=== PATIENT | male | born 1955 | race Caucasian/White ===

== ENCOUNTER 2018-07-22 10:35 | Day surgery (SDC) | payer BC, SELFPAY ==
[2018-07-22] VITALS (7 sets, daily range): BP systolic 114–142; BP diastolic 77–89; PULSE 77–95; RESP 12–16; TEMP 36.1–36.7; O2SAT 95–98; BMI 23.8
[2018-07-22] MEDS: Cefazolin 2 GM in 0.9% Normal Saline 100 ML IV (13:25)
[2018-07-22] MEDS: Bupivacaine Mpf 0.5% 30 ML VIAL (13:42)
--- NOTE | 2018-07-22 14:00 | DCINST_ITS ---
Discharge Diet: No Restrictions - Pain medication may cause nausea. You should typically eat light foods as you take your pain medication. Discharge Activity: May Shower - with the bandage in place 1-2 days after surgery. DO NOT SHOWER WHEN YOUR PORT IS ACCESSED. Additional Activity Instructions:: May not drive, work with heavy equipment, or sign legal documents for [address] if you are no longer taking narcotic pain medications. You may drive when you are no longer taking pain medications. Additional Dressing/Incision Instructions:: Leave the bandage on for 2-3 days. When you remove the bandage, leave the steri-strips intact until they fall off. Allergies/Adverse Reactions: Allergies No Known Allergies Allergy (Verified 07/22/18 10:52) Medications to take at Discharge Loperamide [Imodium] 2 mg PO Q2H PRN PRN #60 cap 07/22/18 Oxycodone HCl/Acetaminophen [Percocet 5/325] 1 - 2 tab PO Q4H PRN PRN 5 Days #30 tab 07/22/18 The following prescriptions were given: Oxycodone HCl/Acetaminophen [Percocet 5/325] 1 - 2 tab PO Q4H PRN PRN 5 Days #30 tab PRN Reason: Pain Primary Care Physician: Elizabeth Bonilla PA [Primary Care Provider] - Test Results: Test results from this visit will be discussed in further detail at your follow- up appointment, if applicable. Please Follow Up With: Vernon Burnett MD - [phone] When: Please plan to follow up in 7 days in the office.
--- NOTE | 2018-07-22 14:02 | RAD_ITS ---
STUDY: X-RAY CHEST REASON FOR EXAM: Male, 62 years old. Port placement. TECHNIQUE: Single AP portable view of the chest. COMPARISON: None. FINDINGS: A right-sided portacatheter has been placed. The tip is in the proximal portion of the superior vena cava. EKG electrodes are seen. Hyperinflation. Scattered calcified granulomas. There is no demonstrated pleural abnormality. Normal size heart. Normal mediastinum and renan. Normal visualized pulmonary arteries. Normal visualized aortic arch and descending thoracic aorta. Normal visualized thoracic spine. Normal visualized ribs, clavicles, and shoulders. There is no demonstrated abnormality of the visualized soft tissue structures of the upper abdomen. RAD/Chest 1 View (Portable) IMPRESSION: Status post right portacatheter placement. The catheter is in the proximal portion of the superior vena cava. Electronically Signed: Phillip Horton MD at 14:43 EDT Tel [phone], Service support ,
--- NOTE | 2018-07-25 10:23 | PCM.OPRPT ---
Problem List (1) Admission for fitting of Port-A-Cath Status: Acute Report of Operation Date of Procedure: 07/22/18 Pre-Operative Diagnosis: z45.2 vascular port fitting and adjustment Post-Operative Diagnosis: Same Surgery/Procedure Performed:: Placement of a right IJ PowerPort with the aid of ultrasound and fluoroscopy Type of Anesthesia:: MAC Anesthesiologist: Amandeep Sun Description of Procedure: Patient was brought in the operating room. Placed in the supine position. Under excellent MAC anesthetic patient was placed in the headdown and his neck was rotated to the left. I ultrasound the neck and identify the internal jugular vein. I marked the neck and chest appropriately and then sterilely prepped and draped these areas in the normal fashion. Local was injected into the neck. Seldinger's technique was used to gain access to the internal jugular vein. Guidewire was placed over the needle the needle was removed and fluoroscopy was used to confirm proper placement of the guidewire. The bed was then placed in the supine position. I injected local in the chest. I created a pocket with the use of electrocautery. I then went into the neck and made a skin ann marie on the guidewire. This was dilated with a hemostat. Dilator and sheath were placed over the guidewire the dilator and guidewire removed. Single lumen catheter was placed over the sheath. The sheath was removed. Fluoroscopy was used to confirm proper length. I tunneled from the chest over the collarbone and into the neck and brought the catheter down. I cut the catheter appropriately. I placed a locking hub on the catheter, the port onto the catheter and then secured the 2 with a locking hub. The catheter and port combination flushed and irrigated well. It was flushed with 3 cc of hep flush. It was sutured into the pocket created with a 0 Prolene suture x2. Skin incisions were closed with deep dermal stitches of 3-0 Vicryl. Dermabond was applied. Sterile dressings were applied. Patient tolerated the procedure well. Postoperative chest x-ray was ordered showing the catheter to be in good position. - Admit VTE Documentation VTE Present on Admission: No VTE Mechan Device Prophylaxis: SCD's VTE Pharm Prophylaxis ordered?: No Reason prophylaxis not ordered:: Treatment Not Indicated
== END 2018-07-22 15:03 | disposition home or self-care (01) ==
LOC: SDC 10:35 → AC 10:37
PROVIDERS: Family Provider Physician Assistant Medical; PCP Physician Assistant Medical; Referring Provider Surgery; Visit Provider Surgery
PROC: (CPT 36561; principal; 2018-07-22 12:45)
DX: Z45.2 Encounter for adjustment and management of vascular access device (principal); Z85.038 Personal history of other malignant neoplasm of large intestine; Z87.891 Personal history of nicotine dependence; I25.10 Atherosclerotic heart disease of native coronary artery without angina pectoris; I10 Essential (primary) hypertension
CPT/HCPCS: 36561; 71045; 76937; 77001; J7120; C1788; J2405

== ENCOUNTER → 2018-08-08 10:37 | Outpatient (CLI) | payer BC, SELFPAY ==
--- NOTE | 2018-08-08 10:40 | RAD_ITS ---
STUDY: X-RAY - PELVIS AND RIGHT HIP REASON FOR EXAM: Male, 62 years old. Injury, right hip pain. TECHNIQUE: Radiological exam, hip, unilateral, with pelvis when performed; minimum of 4 views COMPARISON: None. FINDINGS: There is a non-specific bowel gas pattern. Calcified phlebolith incidentally noted at the left extensive scrotum. There are degenerative changes of the lower lumbar spine. Normal bilateral iliac wings, sacroiliac joints and visualized sacrum. Normal bilateral superior and inferior pubic rami. Normal pubic symphysis. Normal bilateral ischial tuberosities. Normal visualized femoral head. There is borderline osteoarthritic spur formation of the acetabular rim. Normal hip joint. There is no demonstrated osseous destructive lesion or acute fracture. RAD/HIP, UNI W/ Pelvis 2-3 Views IMPRESSION: No acute fracture of the pelvis or right hip. Electronically Signed: Juaquin Key MD at 19:12 EDT , Service support ,
== END ==
PROVIDERS: Family Provider Physician Assistant Medical; PCP Physician Assistant Medical; Referring Provider Internal Medicine Medical Oncology; Visit Provider Internal Medicine Medical Oncology
DX: M25.551 Pain in right hip (principal); C18.9 Malignant neoplasm of colon, unspecified
CPT/HCPCS: 73502

== ENCOUNTER → 2018-08-09 07:35 | Outpatient (CLI) | payer BC, SELFPAY ==
--- NOTE | 2018-08-09 07:45 | MRI_ITS ---
STUDY: MR PELVIS WITH T WITHOUT CONTRAST REASON FOR EXAM: Male, 62 years old. Right hip pain. History of colon cancer diagnosed June 2018. TECHNIQUE: Standardized fat and water weighted pulse sequences were obtained in all 3 orthogonal planes, pre-and post contrast administration. 7 ml of Gadavist contrast material was administered intravenously for the contrast portion of the examination. COMPARISON: X-ray hip/pelvis 08/08/2018. FINDINGS: There is multilevel lumbar spondylosis with slight scoliosis. L2-L3 moderate disc narrowing, annular disc bulge with broad-based posterior disc bulge, mild facet arthropathy, mild foraminal stenosis. L3-L4 moderately severe disc narrowing, annular disc bulge with broad-based posterior disc bulge and facet hypertrophy contributing to mild foraminal narrowing. L4-L5 moderately severe disc narrowing, annular disc bulge, broad-based posterior disc bulge and facet hypertrophy contributing to mild spinal canal narrowing, encroachment upon each of the lateral recesses, moderate left and mild right foraminal stenosis. L5-S1 moderately severe disc narrowing, annular disc bulge with broad-based posterior disc bulge, facet hypertrophy contributing to encroachment upon each of the lateral recesses, moderate bilateral foraminal stenosis. No suspicious bone lesions are identified of the lumbar spine or pelvis. Body wall soft tissues exhibit no acute process. A few small lymph nodes are present in the inguinal chains bilaterally, not pathologically enlarged. Pelvic myotendinous structures appear normal. Intrapelvic: Nodular focus within the mid sigmoid colon. This appears to be enhancing. Correlate with the patient's recent diagnosis of colon cancer. Small bowel to the aomjp-sp-lduv unremarkable. No visible lymphadenopathy. Right hip: No effusion. Mild irregularity of the labral chondral junction at the superior anterior aspect of the articulation. Suspicious for labral tear. Mild joint space narrowing. No significant joint margin osteophytic lipping. Surrounding myotendinous structures are normal. Left hip: No effusion. Minimal joint space narrowing. The cartilage appears intact and with normal signal. There are no apparent abnormalities of the liver chondral junction. No significant joint margin osteophytic lipping. There are no apparent degenerative changes of the femoral head or acetabular articular surface. Surrounding myotendinous structures are normal. MRI/Pelvis W/WO Contrast IMPRESSION: There is very slightly greater narrowing of the articular interval on the right as compared to the left, suggesting a slightly greater degree of chondral degeneration. Suspected right hip labral tear, anterior superior aspect of the acetabular margin. De Dios image saved to the PACS archive. There are no significant degenerative features of the left hip. Multilevel lumbar spondylosis with evidence of foraminal stenosis at multiple levels most prominently on the right at L4-L5 and L5-S1. It is unclear if the small nodular focus within the sigmoid colon represents stool or neoplasm. Most likely stool. Correlate with recent colon cancer diagnosis. Electronically Signed: Flash Lawrence, at 10:32 EDT Tel , Service support ,
== END ==
PROVIDERS: Family Provider Physician Assistant Medical; PCP Physician Assistant Medical; Referring Provider Internal Medicine Medical Oncology; Visit Provider Internal Medicine Medical Oncology
DX: M25.551 Pain in right hip (principal); C18.9 Malignant neoplasm of colon, unspecified
CPT/HCPCS: 72197; A9585; A4216

== ENCOUNTER → 2018-09-01 15:17 | Outpatient (CLI) | payer BC, SELFPAY ==
--- NOTE | 2018-09-01 15:18 | RAD_ITS ---
STUDY: X-RAY - LUMBOSACRAL SPINE REASON FOR EXAM: Male, 62 years old. Low back pain. TECHNIQUE: 6 view(s) of the lumbosacral spine including lateral flexion and extension were obtained. COMPARISON: None FINDINGS: Normal lumbar lordosis. There is no substantial scoliosis. There is normal alignment of the vertebrae. There is limited flexion and extension with no abnormal motion. Normal vertebral bodies and endplates. There is diffuse intervertebral disc space narrowing with osteophyte formation and subchondral sclerosis most marked at L3-4, L4-5 and L5-S1. There is diffuse facet sclerosis. There is degenerative arthrosis of the sacroiliac joint with articular joint space narrowing and spur formation. Normal visualized soft tissue structures. RAD/L/S Spine Comp/w Bending Views IMPRESSION: Diffuse lumbar spondylosis. Limited flexion and extension with no abnormal motion. Electronically Signed: Perez Clarke MD at 17:36 EST , Service support ,
== END ==
PROVIDERS: Family Provider Physician Assistant Medical; PCP Physician Assistant Medical; Referring Provider Orthopaedic Surgery; Visit Provider Orthopaedic Surgery
DX: M54.16 Radiculopathy, lumbar region (principal); M51.36 Other intervertebral disc degeneration, lumbar region
CPT/HCPCS: 72114

== ENCOUNTER → 2018-09-09 12:01 | Outpatient (CLI) | payer BC, SELFPAY ==
--- NOTE | 2018-09-09 12:03 | MRI_ITS ---
STUDY: MRI LUMBAR SPINE WITHOUT CONTRAST REASON FOR EXAM: Male, 63 years old. Low back pain. Right hip pain. TECHNIQUE: Standardized fat and water weighted pulse sequences were obtained in the sagittal and axial planes. COMPARISON: None FINDINGS: There is normal alignment and curvature of the lumbosacral spine with no acute fractures or dislocations and no abnormal marrow infiltrative processes. There is narrowing of the disc spaces at L2-3 through L5-S1 with prominent marginal osteophytes from the vertebral body endplates at these levels. The conus medullaris terminates at T12-L1. T12-L1: There is a 1.3 x 0.3 cm right paracentral disc extrusion with a 1.8 cm craniad extension. The intervertebral foramina are patent.. L1-2: A 1.1 x 0.4 cm right paracentral disc protrusion. There is a slight deformity on the thecal sac. The facet joints and posterior elements are normal. L2-3: Disc space narrowing with marginal osteophytes. No focal disc protrusions or extrusion. No central canal stenosis. The facet joints are normal. L3-4: Disc space narrowing with marginal osteophytes and a 1.5 x 0.5 cm right extraforaminal disc osteophyte complex impinging on the exiting right L3 nerve root. L4-5: Disc space narrowing with marginal osteophytes. Moderate degenerative changes of the facet joints.. L5-S1: Disc space narrowing with marginal osteophytes. Mild degenerative changes of the facet joints. The aorta and visualized portions of kidneys are normal. MRI/Spine Lumbar (Routine) IMPRESSION: Intervertebral osteochondrosis at L2-3 L3-4 L4-5 and L5-S1. A 1.3 x 0.3 cm right paracentral disc extrusion at the T12-L1 level with 1.8 cm craniad extension. A 1.1 x 0.4 cm right paracentral disc protrusion at the L1-L2 level A 1.5 x 0.5 cm right extraforaminal disc osteophyte complex impinging on the exiting right L3 nerve root. Electronically Signed: Constantino Saldaña MD at 3:36 EST Tel , Service support ,
== END ==
PROVIDERS: Family Provider Physician Assistant Medical; PCP Physician Assistant Medical; Referring Provider Orthopaedic Surgery; Visit Provider Orthopaedic Surgery
DX: M51.36 Other intervertebral disc degeneration, lumbar region (principal); M54.16 Radiculopathy, lumbar region
CPT/HCPCS: 72148

== ENCOUNTER → 2019-04-10 | Outpatient (CLI) | payer BC, SELFPAY ==
[2019-01-16 08:59] VITALS: BMI 24.1
[2019-02-13 11:18] VITALS: BMI 23.8
--- NOTE | 2019-04-10 07:52 | CT_ITS ---
STUDY: CT ABDOMEN AND PELVIS WITH CONTRAST REASON FOR EXAM: Male, 63 years old. History of colon cancer and partial colectomy. Follow-up examination. RADIATION DOSAGE (If Supplied By Facility): CTDIvol = ( 9.96 ) mGy, DLP = ( 455.03 ) mGycm TECHNIQUE: Transaxial images were obtained from the dome of the diaphragm to the symphysis pubis without oral contrast. 100 IV/Oral Isovue 300 was administered. Sagittal and coronal images were reconstructed. Individualized dose optimization techniques were used for this CT. COMPARISON: None. FINDINGS: The visualized lung bases are unremarkable. The visualized portions of the heart are within normal limits. Normal liver. There are multiple gallstones. Normal spleen. Normal pancreas. Normal bilateral adrenal glands. Normal right kidney. Normal left kidney. Normal visualized stomach. Normal small intestine. Normal colon. The appendix is visualized and appears normal. There is scattered atherosclerotic calcification of the abdominal aorta, without a demonstrated aneurysm. Normal inferior vena cava. Normal retroperitoneum. Normal urinary bladder. Normal abdominal wall. There are diffuse degenerative changes of the visualized lumbar spine. Straightening of the normal lumbar lordosis. CT/Abdomen/Pelvis WITH Contrast IMPRESSION: Scattered sigmoid diverticula. Electronically Signed: Phillip Horton, at 15:02 EDT , Service support ,
[2019-04-10 08:06] LABS: CREATININE FINGERSTICK 1.2 mg/dL (0.70-1.30)
== END | disposition home or self-care (01) ==
LOC: CT 07:51
PROVIDERS: Family Provider Physician Assistant Medical; PCP Physician Assistant Medical; Referring Provider Internal Medicine Medical Oncology; Visit Provider Internal Medicine Medical Oncology
DX: Z85.038 Personal history of other malignant neoplasm of large intestine (principal); Z90.49 Acquired absence of other specified parts of digestive tract
CPT/HCPCS: 74177; Q9967; A4216

== ENCOUNTER 2019-06-14 08:12 | Day surgery (SDC) | payer BC, SELFPAY ==
[2019-05-22 07:46] VITALS: BMI 24.7
--- NOTE | 2019-05-22 11:43 | HP_ITS ---
Intake Vital Signs 05/22/19 Body Mass Index (BMI) 24.7 05/22/19 Height 5 ft 7 in 05/22/19 Weight: 152 lb 05/22/19 Body Mass Index (BMI) 23.8 05/22/19 Blood Pressure 124/75 H 05/22/19 Blood Pressure Location Rt brachial 05/22/19 Blood Pressure Position Sitting 05/22/19 Respiratory Rate 18 05/22/19 Pulse Rate 69 05/22/19 Pulse Source Monitor 05/22/19 Temperature 97.6 F L 05/22/19 Temperature Source Oral 05/22/19 Pulse Ox 97 05/22/19 Oxygen Delivery Method room air Intake Visit Reasons: C-Scope Consult Chief Complaint: port removal Home Manager Required: No Is patient in pain?: No Allergies No Known Allergies Allergy (Verified 05/22/19 07:46) Medications Loperamide [Imodium] 2 mg PO Q2H PRN PRN #60 cap 07/22/18 [Rx Confirmed 05/22/19] Adults Multivitamin Tablet 1 tab PO DAILY 07/26/18 [History Confirmed 05/22/19] PFSH Medical History Colon cancer (Acute) Mass of right forearm (Acute) Surgical History H/O hernia repair (Acute) History of colon resection (Acute) History of tonsillectomy (Acute) Family History Mother Diabetes Uncle Aneurysm Heart disease Father Hypertension Myocardial infarction Heart disease Social History (Updated 05/22/19 @ 11:43 by Vernon Burnett MD) Smoking Status: Former smoker second hand exposure: No alcohol intake: never substance use type: does not use caffeine: Yes what type of physical activity do you participate in: walking frequency: daily seatbelt use: always HPI HPI HPI: YUDELKA MOBLEY, is a 63 M who presents to the office today for HPI HPI Surgical H&P: Yes HPI: YUDELKA MOBLEY, is a 63 M who presents to the office today for evaluation for colonoscopy. Patient status post a left-sided colectomy secondary to an obstructing colon cancer back in May 2018. This was done at the [facility] [place] in [facility]. 2 out of 24 lymph nodes were positive. I have placed the port on him and he underwent chemotherapy. Recently he had a CAT scan of his abdomen and pelvis which showed scattered sigmoid diverticuli. ROS General General: Yes colon cancer; no weight change, appetite, fatigue, breast cancer or weakness HEENT HEENT: No difficulty swallowing, eye injury, eye surgery, swollen glands or hoarseness Endo Endocrine: No thyroid disease, diabetes mellitus, thyroid cancer, Hair loss, heat intolerance or cold intolerance Skin Skin: No rash or changing moles Breast Breast: No left breast lump, right breast lump, nipple discharge, breast pain, abnormal mammogram, abnormal US or breast enlargement Musc Musculoskeletal: Yes back problems and arthritis; no rheumatoid arthritis, gout or joint pain Cardio Cardiovascular: Yes high blood pressure; no murmur, pacemaker, heart disease, atrial fibrillation, heart attack, heart stent, palpitations, shortness of breat with exertion or chest pain Psych Psychiatric: No depression, anxiety or hearing voices Resp Respiratory: No shortness of breath, No sleep apnea, No cough, No COPD, No asthma, No emphysema, No wheezing Gastro Gastrointestinal: No abdominal pain, No nausea or vomiting, No diarrhea, No constipation, No blood in stool, No acid reflux, No hemorrhoids, No ulcers, No gallbladder problem, No black,tarry stools Andrew Hematologic: No blood thinners, No blood disorders, No bleeding, No anemia, No blood clots Neuro Neurologic: No system reviewed and no additional complaints, except as docu, No as per HPI, No abnormal walking, No abnormal hearing, No abnormal movements, No abnormal speech, No behavioral changes, No burning sensations, No confusion, No seizure-like activity, No unsteadiness, No dizziness, No localized weakness, No frequent falls, No headache(s), No lack of coordination, No loss of vision, No memory loss, Yes numbness, No other visual disturbances, No radiating pain, No restless legs, No sensory deficit, No fainting, Yes tingling, No tremor(s), No weakness, No other Exam Const General: no acute distress, well developed, well hydrated Orientation: oriented to person, oriented to place, oriented to time [facility] Head: normocephalic, atraumatic Ears: external ears normal Mouth: moist mucous membranes Eyes Sclera: sclerae normal Pupils: normal by confrontation Neck Neck: no lymphadenopathy noted Neck mass: No Thyroid: thyroid normal, symmetrical Chest Chest palpation & inspection: normal inspection of the chest Breast Palpation: No nipple discharge Resp Effort & Inspection: normal respiratory effort Auscultation: clear to auscultation bilaterally Percussion: percussion normal Cardio Rate: regular rate Rhythm: regular rhythm Heart Sounds: no murmurs GI Palpation: soft, no hepatosplenomegaly, no masses, nontender Rectal Exam: other Other: Rectal exam deferred. Extrem General: normal to inspection, no clubbing, cyanosis or edema Assessment & Plan Problems 1. Colon adenocarcinoma C18.9 Plan I have discussed the above with the patient. I have offered the patient colonoscopy for evaluation. I have explained the risks/benefits of the procedure and described the procedure. I have discussed the risks with the patient, including but not limited to: infection, bleeding, perforation of the GI tract requiring emergency surgery, inability to complete the procedure, injury to any internal organs, complications of anesthesia, etc. - the patient understands and agrees to proceed. I have answered all the patient's questions to the patient's satisfaction and the patient has no further questions. The patient has been given instructions for the colon cleansing preparation. Coding Level of Care Code Off vis,est,level 3 Diagnoses Colon adenocarcinoma C18.9 05/22/19 1143 <Electronically signed by Vernon patterson MD> Date _ Vernon Burnett MD I have re-examined the patient. There are no clinical changes since date of exam.
--- NOTE | 2019-06-14 | COLBX_PTH ---
PATIENT: YUDELKA MOBLEY LOC: EN U#:[id number] AGE/SX: 63/M ROOM: RE06/14/[address]: Dr. Vernon Burnett MD : [id number] BED: DIS: 06/14/2019 SPEC #: [id number] RECD: 06/14/19 13:35 STATUS: YESENIA ADRIENNE #: [id number] TIO: 06/14/19 00:[address]: Vernon Burnett DEPT: SURGICAL PATHOLOGY RECD BY: Everette Smith ENTERED: 06/14/19 13:35 SP TYPE: COLON BX OTHR DR: MOISÉS Crowder Tissues: Transverse colon Procedures: Surgery Specimen Level IV HEADER OPERATION: Colonoscopy (MAC) PRE-OP DIAGNOSIS: History colon cancer, colectomy TISSUE SUBMITTED: Transverse colon polyp MICROSCOPIC DIAGNOSIS Transverse colon polyp, biopsy: Tubular adenoma. SJ:brant 06/15/19 MICROSCOPIC DESCRIPTION Slides are reviewed. GROSS DESCRIPTION Received in fixative is one container labeled with the patient's name and designated transverse colon polyp. The specimen consists of a piece of bernal-pink polyp measuring 0.7 x 0.5 x 0.3 cm. The specimen is totally submitted in one cassette. / SJ:brant 06/14/19 TC:1 CPT: 38397
[2019-06-14 08:24] VITALS: BP 125/78; PULSE 68; RESP 16; TEMP 36.7; O2SAT 97; BMI 23.8
[2019-06-14] MEDS: Lactated Ringers 1,000 ML 75 ML IV (08:40)
[2019-06-14 09:58] VITALS: BP 125/78; BP 87/51; PULSE 74; RESP 16; TEMP 36.1; O2SAT 94
[2019-06-14 10:05] VITALS: BP 119/76; BP 125/78; PULSE 72; RESP 17; O2SAT 96
[2019-06-14 10:10] VITALS: BP 119/76; BP 125/78; PULSE 68; RESP 16; O2SAT 93
[2019-06-14 10:15] VITALS: BP 121/73; BP 125/78; PULSE 62; RESP 16; TEMP 36.3; O2SAT 98
[2019-06-14 10:40] VITALS: BP 125/78
--- NOTE | 2019-06-14 16:49 | OP.ENDO_ITS ---
06/15/2019 Carlito Crowder Re : Colonoscopy procedure for Danny John Irene This procedure was performed on Friday, June 14, 2019. My impressions and recommendations are as follows: Impressions : - One 2 mm polyp in the transverse colon, removed with a hot snare. Resected and retrieved. - Patent end-to-end colo-colonic anastomosis, characterized by healthy appearing mucosa. - Non-bleeding internal hemorrhoids. - The examination was otherwise normal. Recommendations : - Discharge patient to home. - Resume previous diet. - Continue present medications. - Await pathology results. - Repeat colonoscopy in 1 year for surveillance. - Return to my office in 1 week. My findings are described in the full procedure note, which is enclosed. If I can be of further assistance, please feel free to contact me at Doctor phone number(s): , Fax: [phone], Work: . Sincerely, MD Vernon Reynaga MD 06/14/2019 10:05:23 AM This report has been signed electronically.
== END 2019-06-14 10:47 | disposition home or self-care (01) ==
LOC: EN 08:13 → AC 08:14
PROVIDERS: Family Provider Physician Assistant Medical; PCP Physician Assistant Medical; Referring Provider Physician Assistant Medical; Visit Provider Surgery
PROC: 0DJD8ZZ Inspection of Lower Intestinal Tract, Via Natural or Artificial Opening Endoscopic (ICD-10-PCS; CPT 45378; principal; 2019-06-14 09:10)
DX: D12.3 Benign neoplasm of transverse colon (principal); K64.8 Other hemorrhoids; Z90.49 Acquired absence of other specified parts of digestive tract; Z87.891 Personal history of nicotine dependence
CPT/HCPCS: 45380; 88305; J7120; A4216

== ENCOUNTER → 2019-10-09 07:07 | Outpatient (CLI) | payer BC, SELFPAY ==
[2019-04-13 08:39] VITALS: BMI 24.7
[2019-06-14 12:48] VITALS: BMI 23.8
--- NOTE | 2019-10-09 07:10 | RAD_ITS ---
STUDY: X-RAY CHEST REASON FOR EXAM: Male, 64 years old. Colon cancer last year TECHNIQUE: PA and lateral views of the chest. COMPARISON: Prior study of 07/22/2018 FINDINGS: There is a right-sided MediPort with tip projecting over the distal SVC. The lungs are clear and expanded. There is hemidiaphragmatic flattening which may be associated with COPD. Normal size heart. Normal mediastinum and renan. Normal visualized pulmonary arteries. There are calcified plaques of the aortic arch. Normal visualized thoracic spine. Normal visualized ribs, clavicles, and shoulders. There is no demonstrated abnormality of the visualized soft tissue structures of the upper abdomen. RAD/Chest PA and Lateral IMPRESSION: Right-sided MediPort with tip projecting over the distal SVC. Calcified plaques of the aortic arch. Hemidiaphragmatic flattening which may be associated with COPD. No acute cardiopulmonary disease process is seen. Electronically Signed: Artur Pineda MD at 22:19 EST , Service support ,
--- NOTE | 2019-10-09 07:10 | CT_ITS ---
STUDY: CT ABDOMEN AND PELVIS WITH CONTRAST REASON FOR EXAM: Male, 64 years old. History of colon cancer RADIATION DOSAGE (If Supplied By Facility): CTDIvol = ( 13.06 ) mGy, DLP = ( 595.30 ) mGycm TECHNIQUE: Transaxial images were obtained from the dome of the diaphragm to the symphysis pubis without oral contrast. 100 ML ISOVUE 320 was administered. Sagittal and coronal images were reconstructed. Individualized dose optimization techniques were used for this CT. COMPARISON: Previous study of 04/10/2019 FINDINGS: There is a right middle lobe nodule measuring 9 mm, new in the interval. The visualized portions of the heart are within normal limits. Normal liver. There are multiple gallstones. Normal spleen. Normal pancreas. Normal bilateral adrenal glands. Normal right kidney. Normal left kidney. Normal visualized stomach. Normal small intestine. There is a questionable annular lesion of the rectosigmoid best seen on image 74 series 2 . The appendix is visualized and appears normal. There are calcified plaques of the abdominal aorta and common iliac arteries. Normal inferior vena cava. Normal retroperitoneum. Normal urinary bladder. The prostate is heterogeneous in density and contains calcifications. Normal abdominal wall. There are diffuse degenerative changes of the lumbar spine. CT/Abdomen/Pelvis WITH Contrast IMPRESSION: 1. Right middle lobe nodule measuring 9 mm, new in the interval. 2. There is a questionable annular lesion of the rectosigmoid best seen on image 74 series 2. This may minimally represent a focus of nondistention, but neoplastic process should be considered. 3. Cholelithiasis. 4. Prostatic calcifications are present. Electronically Signed: Artur Pineda MD at 22:16 EST , Service support ,
[2019-10-09 07:20] LABS: EGFR FINGERSTICK > 60.0000 mL/min (>60)
[2019-10-09] MEDS: 0.9% Saline Lock 10 ML Syringe IV (07:45)
== END ==
PROVIDERS: Family Provider Physician Assistant Medical; PCP Physician Assistant Medical; Referring Provider Internal Medicine Medical Oncology; Visit Provider Internal Medicine Medical Oncology
DX: Z01.812 Encounter for preprocedural laboratory examination (principal); C18.9 Malignant neoplasm of colon, unspecified
CPT/HCPCS: 71046; 74177; Q9967; A4216

== ENCOUNTER → 2019-10-16 08:03 | Outpatient (CLI) | payer BC, SELFPAY ==
[2019-10-12 08:35] VITALS: BMI 25.7
--- NOTE | 2019-10-16 08:03 | CT_ITS ---
STUDY: CT CHEST WITH CONTRAST REASON FOR EXAM: Male, 64 years old. LUNG NODULE FOUND ON CXR -- HX-COLON CA W/ CHEMO -- LAST CHEMO 01-23-19 RADIATION DOSAGE (If Supplied By Facility): CTDIvol = ( 9.78 ) mGy, DLP = ( 345.29 ) mGycm TECHNIQUE: Transaxial imaging was performed following intravenous administration of 100CC ISOVUE 300. Individualized dose optimization techniques were used for this CT. COMPARISON: Chest x-ray 10/09/2019 FINDINGS: Right internal jugular chest port. Mild emphysematous changes. There is no demonstrated pleural abnormality. Normal heart and pericardium. Normal mediastinum. Normal hilar regions. Normal enhanced pulmonary arteries. Normal aorta arch and descending thoracic aorta. Normal osseous structures. There is no demonstrated abnormality of the visualized upper abdomen. CT/Chest WITH Contrast IMPRESSION: Mild emphysema without pneumonia, atelectasis, nodule, or mass., Electronically Signed: Flash Holbrook MD at 13:13 EST Tel , Service support ,
[2019-10-16] MEDS: 0.9% Saline Lock 10 ML Syringe IV (08:20)
== END ==
PROVIDERS: Family Provider Physician Assistant Medical; PCP Physician Assistant Medical; Referring Provider Internal Medicine Medical Oncology; Visit Provider Internal Medicine Medical Oncology
DX: C18.9 Malignant neoplasm of colon, unspecified (principal); R91.1 Solitary pulmonary nodule; R93.89 Abnormal findings on diagnostic imaging of other specified body structures
CPT/HCPCS: 71260; Q9967; A4216

== ENCOUNTER → 2020-09-02 07:05 | Outpatient (CLI) | payer OTHER, BC, SELFPAY ==
[2020-04-20 09:25] VITALS: BMI 25.3
--- NOTE | 2020-09-02 07:07 | CT_ITS ---
STUDY: CT ABDOMEN AND PELVIS WITH CONTRAST REASON FOR EXAM: Male, 64 years old. Colon cancer surveillance, 1.5 foot of colon removed, hernia repairs RADIATION DOSAGE (If Supplied By Facility): CTDIvol = ( 9.65 ) mGy, DLP = ( 434.16 ) mGycm TECHNIQUE: Transaxial images were obtained from the dome of the diaphragm to the symphysis pubis with oral contrast. Oral and amp;amp; IV Readi-CAT and amp;amp; 100mL Isovue-300 was administered. Sagittal and coronal images were reconstructed. Individualized dose optimization techniques were used for this CT. COMPARISON: Comparison is made with prior study dated 10/09/2019. FINDINGS: Stable scarring in the anterior medial aspect of the right middle lobe. No definite nodule is seen at that site. The visualized portions of the heart are within normal limits. Normal liver. There are multiple gallstones. Normal spleen. Normal pancreas. Normal bilateral adrenal glands. Normal right kidney. Normal left kidney. Normal visualized stomach. Normal small intestine. Normal colon. The appendix is visualized and appears normal. There is scattered atherosclerotic calcification of the abdominal aorta, without a demonstrated aneurysm. Normal inferior vena cava. Normal retroperitoneum. Normal urinary bladder. The prostate measures 3.8 cm x 3.5 cm. Scattered calcifications are seen within it. Normal abdominal wall. There are diffuse degenerative changes of the visualized lumbar spine. Straightening of the normal lumbar lordosis. CT/Abdomen/Pelvis WITH Contrast IMPRESSION: Status post partial sigmoid resection. The remainder of the examination is unchanged. Electronically Signed: Phillip Horton, at 9:18 EST , Service support ,
[2020-09-02 07:31] LABS: Absolute Lymphocyte Count 1.71 X10^3/uL (0.83-4.51); Absolute Neutrophil Count 6.5 X10^3/uL (2.0-7.7); Basophil# 0.01 X10^3/uL; Basophil% 0.1 % (0-1); Eosinophil# 0.23 X10^3/uL; Eosinophils% 2.5 % (0-5); Hematocrit 42.3 % (40-54); Hemoglobin 14.2 g/dL (13.0-16.5); Lymphocyte # 1.71 X10^3/ul (4.0); Lymphocyte % 18.6 % (19-41); Mean Corp Hgb Conc 33.6 g/dL (32-36); Mean Corpuscular Hgb 31.8 pg (27.0-32.0); Mean Corpuscular Volume 94.6 fL (80-94); Mean Platelet Vol. 10.2 fl (6.2-12.0); Monocyte# 0.72 X10^3/uL; Monocyte% 7.8 % (0-10); NRBC Flagged by Analyzer 0 % (0-5); Neutrophil % 70.7 % (47-70); Platelet Count 225 K/mm3 (150-450); RBC Distribution Width CV 12.9 % (11.6-14.6); RBC Distribution Width SD 44.4 fl (35.1-43.9); Red Blood Count 4.47 M/mm3 (4.6-6.2); White Blood Count 9.2 K/mm3 (4.4-11.0)
[2020-09-02 07:47] LABS: AST(SGOT) 18 U/L (15-37); Alanine Aminotransfer ALT/SGPT 22 U/L (16-61); Albumin, Serum 3.7 g/dL (3.2-5.0); Alkaline Phosphatase 115 U/L (45-117); Anion Gap 4 (5-15); BUN 18 mg/dL (7-18); BUN/Creat Ratio 18.2 RATIO (10-20); Calcium,Total 8.8 mg/dL (8.5-10.1); Chloride 106 mmol/L (98-107); Creatinine, Serum 0.99 mg/dL (0.70-1.30); EST Glomerular Filtration Rate 81 mL/min (>60); Est Glom Filt Rate - Afr Amer 98 mL/min (>60); Globulin 3.6 g/dL (2.2-4.2); Glucose 108 mg/dL (74-106); Potassium 4.2 mmol/L (3.5-5.1); Protein, Total 7.3 g/dL (6.4-8.2); Sodium Level 138 mmol/L (136-145)
[2020-09-02] MEDS: 0.9% Saline Lock 10 ML Syringe IV (08:00)
[2020-09-02] MEDS: 0.9 % NaCl (Sterile) Posiflush 10 mL IV (08:00)
[2020-09-03 06:31] LABS: Carcinoembryonic Antigen 3.5 ng/mL (0.0-4.7)
== END ==
PROVIDERS: PCP Physician Assistant Medical; Referring Provider Internal Medicine Medical Oncology; Visit Provider Internal Medicine Medical Oncology
DX: C18.4 Malignant neoplasm of transverse colon (principal)
CPT/HCPCS: 36415; 74177; 80053; 82378; 85025; Q9967; A4216

== ENCOUNTER → 2021-03-03 08:19 | Outpatient (CLI) | payer MEDICARE, BC, OTHER, SELFPAY ==
[2020-09-09 11:46] VITALS: BMI 25.3
--- NOTE | 2021-03-03 08:22 | CT_ITS ---
STUDY: CT ABDOMEN AND PELVIS WITH CONTRAST REASON FOR EXAM: Male, 65 years old. COLON CANCER-MONIORING RADIATION DOSAGE (If Supplied By Facility): CTDIvol = ( 12.52 ) mGy, DLP = ( 550.80 ) mGycm TECHNIQUE: Transaxial images were obtained from the dome of the diaphragm to the symphysis pubis with oral contrast. Oral and amp;amp; IV Readi-CAT and amp;amp; 100mL Isovue-370 was administered. Sagittal and coronal images were reconstructed. Individualized dose optimization techniques were used for this CT. COMPARISON: Comparison is made with prior examination dated 09/02/2020. FINDINGS: Minimal degree of increased markings at the lung base posteriorly on the right side suggestive of possible scarring. The visualized portions of the heart are within normal limits. Normal liver. There are multiple gallstones. Normal spleen. Normal pancreas. Normal bilateral adrenal glands. Normal right kidney. Normal left kidney. Normal visualized stomach. There is evidence of thickening of the wall of the terminal ileum. There are multiple colonic diverticula consistent with diverticulosis. The appendix is visualized and appears normal. There is scattered atherosclerotic calcification of the abdominal aorta, without a demonstrated aneurysm. Normal inferior vena cava. Normal retroperitoneum. Normal urinary bladder. There is enlargement of the prostate gland. It measures 3.7 cm x 4.2 cm. Central calcifications are seen. The prostate causes indentation at the bladder base. Normal abdominal wall. There are diffuse degenerative changes of the visualized lumbar spine. CT/Abdomen/Pelvis WITH Contrast IMPRESSION: Stable examination. Electronically Signed: Phillip Horton MD at 9:14 EDT , Service support ,
[2021-03-03 08:46] LABS: CREATININE FINGERSTICK 1.4 mg/dL (0.70-1.30)
[2021-03-03 08:53] LABS: Absolute Lymphocyte Count 1.81 X10^3/uL (0.83-4.51); Absolute Neutrophil Count 4.6 X10^3/uL (2.0-7.7); Basophil# 0.02 X10^3/uL; Basophil% 0.3 % (0-1); Eosinophil# 0.15 X10^3/uL; Eosinophils% 2.1 % (0-5); Hemoglobin 13.4 g/dL (13.0-16.5); Lymphocyte # 1.81 X10^3/ul (0.83-4.51); Lymphocyte % 25.1 % (19-41); Mean Corp Hgb Conc 32.7 g/dL (32-36); Mean Corpuscular Hgb 30.9 pg (27.0-32.0); Mean Corpuscular Volume 94.7 fL (80-94); Mean Platelet Vol. 9.4 fl (6.2-12.0); Monocyte# 0.62 X10^3/uL; Monocyte% 8.6 % (0-10); NRBC Flagged by Analyzer 0 % (0-5); Neutrophil # 4.57 X10^3/uL (2.7-7.7); Neutrophil % 63.5 % (47-70); Platelet Count 278 K/mm3 (150-450); RBC Distribution Width CV 13.2 % (11.6-14.6); Red Blood Count 4.33 M/mm3 (4.6-6.2); White Blood Count 7.2 K/mm3 (4.4-11.0)
[2021-03-03] MEDS: 0.9% Saline Lock 10 ML Syringe IV (08:53)
[2021-03-03 09:10] LABS: AST(SGOT) 17 U/L (15-37); Albumin, Serum 3.5 g/dL (3.2-5.0); BUN 14 mg/dL (7-18); BUN/Creat Ratio 15.4 RATIO (10-20); Calcium,Total 8.8 mg/dL (8.5-10.1); Creatinine, Serum 0.91 mg/dL (0.70-1.30); EST Glomerular Filtration Rate 89 mL/min (>60); Est Glom Filt Rate - Afr Amer 107 mL/min (>60); Globulin 3.6 g/dL (2.2-4.2); Glucose 100 mg/dL (74-106); Protein, Total 7.1 g/dL (6.4-8.2)
[2021-03-03 09:11] LABS: Alanine Aminotransfer ALT/SGPT 24 U/L (16-61); Alkaline Phosphatase 100 U/L (45-117); Anion Gap 4 (5-15); Chloride 105 mmol/L (98-107); LDH 183 U/L (87-241); Potassium 4.3 mmol/L (3.5-5.1); Sodium Level 140 mmol/L (136-145)
[2021-03-04 15:47] LABS: Carcinoembryonic Antigen 3.2 ng/mL (0.0-4.7)
== END ==
PROVIDERS: PCP Physician Assistant Medical; Referring Provider Internal Medicine Medical Oncology; Visit Provider Internal Medicine Medical Oncology
DX: C18.4 Malignant neoplasm of transverse colon (principal); C18.9 Malignant neoplasm of colon, unspecified
CPT/HCPCS: 74177; 80053; 82378; 83615; 85025; Q9967; A4216

== ENCOUNTER → 2021-03-10 11:50 | Outpatient (CLI) | payer MEDICARE, BC, SELFPAY ==
[2021-03-10 11:07] VITALS: BMI 25.4
--- NOTE | 2021-03-10 11:53 | RAD_ITS ---
STUDY: X-RAY CHEST REASON FOR EXAM: Male, 65 years old. Chest pain/pressure TECHNIQUE: PA and lateral views of the chest. COMPARISON: 10/09/2019 FINDINGS: Stable appearance of a right subclavian port The lungs are clear and expanded. There is no demonstrated pleural abnormality. Normal size heart. Normal mediastinum and renan. Normal visualized pulmonary arteries. Normal visualized aortic arch and descending thoracic aorta. Normal visualized thoracic spine. Normal visualized ribs, clavicles, and shoulders. There is no demonstrated abnormality of the visualized soft tissue structures of the upper abdomen. RAD/Chest PA and Lateral IMPRESSION: No acute pulmonary process Electronically Signed: Juaquin Brizuela MD at 12:28 EDT , Service support ,
== END ==
PROVIDERS: PCP Physician Assistant Medical; Referring Provider Internal Medicine Medical Oncology; Visit Provider Internal Medicine Medical Oncology
DX: R05 Cough (principal)
CPT/HCPCS: 71046

== ENCOUNTER 2022-02-02 17:58 | Emergency (ER) | payer OTHER, MEDICARE, SELFPAY ==
[2022-02-02 18:01] VITALS: BP 200/107; PULSE 85; RESP 14; TEMP 36.5; O2SAT 98; BMI 21.7
--- NOTE | 2022-02-02 18:46 | EX.ED.UPPERE ---
HPI History of Present Illness HPI Narrative: Patient presents with left arm pain that began yesterday. Patient states he was lifting some wood when he felt sharp stabbing pain in his left upper arm. Patient states he has had increased bruising today. Patient states the pain is been constant. Patient states pain is worse with complete extension. Patient states it is better with flexion of his elbow. Patient denies any paresthesias or weakness. Patient denies any other injuries. Chief Complaint: Upper Extremity Injury Informant: patient Onset/Context/Timing Onset: Yesterday Context: Sudden Onset Timing: Continuous Quality of Pain: Sharp Location: Left upper arm Worsened by: Extension of the elbow Relieved by: Flexion of the elbow Associated Symptoms Associated Symptoms: Negative for Parasthesia, Weakness and Loss of Funtion PFSH [facility] Medical History (Updated 02/02/22 @ 18:[address] Dwayne Justin DO) Colon cancer Mass of right forearm Home Medications NK 06/09/19 [History Last Taken Unknown] Allergy/AdvReac Type Severity Reaction Status Date / Time No Known Allergies Allergy Verified 02/02/22 18:01 Family History Mother Diabetes Uncle Aneurysm Heart disease Father Hypertension Myocardial infarction Heart disease Surgical History H/O hernia repair History of colon resection History of tonsillectomy Social History Smoking Status: Former smoker second hand exposure: No alcohol intake: never substance use type: does not use caffeine: Yes what type of physical activity do you participate in: walking frequency: daily seatbelt use: always ROS ROS ED Constitutional Constitutional ED: Denies chills or fever(s) Eyes Eyes: Denies blurry vision or change in vision ENT ENT ED: Denies rhinorrhea or sore throat Cardiovascular Cardiovascular: Denies chest pain or palpitations Respiratory/Chest Respiratory/Chest: Denies cough or dyspnea Gastrointestinal Gastrointestinal: Denies nausea or vomiting Genitourinary Genitourinary ED: Denies dysuria or hematuria Musculoskeletal Musculoskeletal: Denies back pain or neck pain Integumentary Denies abscess or rash Neurologic Neurologic: Denies headache(s) or weakness Allergic/Immunologic Allergic/Immunologic ED: Denies mouth swelling or urticaria EXAM Physical Exam Const Vital Signs: 02/02/22 18:01 Temperature 97.7 F L Temperature Source Temporal Pulse Rate 85 Respiratory Rate 14 Blood Pressure 200/107 H Blood Pressure Mean 138 Pulse Ox 98 Oxygen Delivery Method Room Air Positive well nourished and well developed General Appearance ED: well developed and NAD HEENT Reports moist mucous membranes Neck full ROM and supple Extremity Extremity Narrative: There is mild tenderness over the anterior aspect of the left bicep area. There is no obvious deformity. There is some edema and ecchymosis of the left upper arm. There is good range of motion of the left elbow. It was slightly limited in complete extension secondary to pain. Radial pulses are equal bilateral. Sensation was intact to light touch in the radial, median, and ulnar areas. Strength is 5/5 in the radial, median, and ulnar areas. Neuro oriented x3, CN's II-XII intact bilaterally, moves all extremities, no focal motor deficits and no sensory deficits noted Sensorium / Orientation: alert Psych mental status grossly normal MDM MDM MDM Narrative Medical decision making narrative: Patient was advised that this is most likely a biceps strain or bicep tendon tear. I do not feel x-rays are necessary at this time. Patient was given a sling for comfort. Patient was instructed to use ice to the area. Patient was instructed to take Tylenol or ibuprofen as needed for pain. Patient was instructed to follow-up with his primary care physician in 5 to 7 days. Patient understood and was agreeable with the plan. All questions were answered. Discharge Plan Triage Chief Complaint: Upper Extremity Injury ED Provider: Dwayne Justin Dx/Rx/DC Orders Clinical Impression: Strain of left biceps muscle, Colon adenocarcinoma Instructions: ED Muscle Strain, Extremity Prescriptions: No Action NK RF: 0 Primary Care Provider: Elizabeth Bonilla Referrals: Elizabeth Bonilla PA [Primary Care Provider] - 5-7 Days Disposition Disposition: Home, Self Care
== END 2022-02-02 18:58 | disposition home or self-care (01) ==
PROVIDERS: Emergency Provider Emergency Medicine; PCP Physician Assistant Medical; Visit Provider Emergency Medicine
DX: S46.212A Strain of muscle, fascia and tendon of other parts of biceps, left arm, initial encounter (principal); C18.9 Malignant neoplasm of colon, unspecified; Z87.891 Personal history of nicotine dependence; X58.XXXA Exposure to other specified factors, initial encounter
CPT/HCPCS: 99282

== ENCOUNTER → 2024-02-24 | Outpatient (CLI) | payer OTHER, BC, SELFPAY ==
--- NOTE | 2024-02-24 07:26 | CT_ITS ---
STUDY: CT ABDOMEN AND PELVIS WITH CONTRAST REASON FOR EXAM: Male, 68 years old. ABDOMINAL PAIN/H/O COLON CANCER. History of prior bowel resection and chemotherapy. RADIATION DOSAGE (If Supplied By Facility): CTDIvol = ( 13.11 ) mGy, DLP = ( 420.90 ) mGycm TECHNIQUE: Transaxial images were obtained from the dome of the diaphragm to the symphysis pubis with oral contrast. Oral and amp;amp;amp; IV Readi-CAT and amp;amp;amp; 100mL Isovue-370 was administered. Sagittal and coronal images were reconstructed. Individualized dose optimization techniques were used for this CT. COMPARISON: Comparison is made with prior study March 03, 2021. FINDINGS: Stable minimal scarring at the lung bases. The visualized portions of the heart are within normal limits. Normal liver. There are multiple gallstones. Normal spleen. Normal pancreas. Normal bilateral adrenal glands. Normal right kidney. Normal left kidney. Normal visualized stomach. Normal small intestine. Large amount of fecal material is seen in the colon. The patient is status post partial sigmoid resection. The appendix is visualized and appears normal. Normal abdominal aorta. Normal inferior vena cava. Normal retroperitoneum. Normal urinary bladder. Heterogeneous enlargement of the prostate. Normal abdominal wall. There are diffuse degenerative changes of the visualized lumbar spine. Loss of the normal lumbar lordosis. CT/Abdomen/Pelvis WITH Contrast IMPRESSION: Large amount of fecal material is seen in the colon. Prior localized resection of the sigmoid colon. Heterogeneous enlargement of the prostate. Multiple gallstones. Electronically Signed: Phillip Horton MD at 15:17 EDT ,
[2024-02-24] MEDS: 0.9 % NaCl (Sterile) Posiflush 10 mL IV (07:30)
[2024-02-24] MEDS: 0.9% Saline Lock 10 ML Syringe IV (07:40)
== END | disposition home or self-care (01) ==
PROVIDERS: PCP Physician Assistant Medical; Referring Provider Internal Medicine Medical Oncology; Visit Provider Internal Medicine Medical Oncology
DX: R10.9 Unspecified abdominal pain (principal); C18.9 Malignant neoplasm of colon, unspecified
CPT/HCPCS: 74177; Q9967; A4216

== ENCOUNTER 2024-04-14 09:44 | Day surgery (SDC) | payer OTHER, SELFPAY ==
[2024-04-14] VITALS (8 sets, daily range): BP systolic 100–151; BP diastolic 52–77; PULSE 61–70; RESP 16; TEMP 36.1–36.3; O2SAT 95–97; BMI 22.8
--- NOTE | 2024-04-14 | COLBX_PTH ---
PATIENT: YUDELKA MOBLEY LOC: EN U#:[id number] AGE/SX: 68/M ROOM: RE04/14/[address]: Dr. Ba Harris MD : [id number] BED: DIS: 04/14/2024 SPEC #: [id number] RECD: 04/14/24 09:07 STATUS: YESENIA ADRIENNE #: [id number] TIO: 04/14/24 00:[address]: Ba Harris DEPT: SURGICAL PATHOLOGY RECD BY: Everette Smith ENTERED: 04/17/24 09:08 SP TYPE: COLON BX OTHR DR: MOISÉS Crowder Tissues: A - COLON BIOPSY B - Transverse colon C - Rectum, NOS Procedures: Surgery Specimen Level IV HEADER OPERATION: Colonoscopy, polypectomy, biopsy PRE-OP DIAGNOSIS: Intermittent left upper quadrant abdominal pain TISSUE SUBMITTED: A- Anastomosis site polyp, B- Distal transverse colon polyp, C- Rectal polyp biopsy MICROSCOPIC DIAGNOSIS A. Anastomosis site polyp, biopsy: Fragments of tubular adenoma. B. Distal transverse colon polyp, biopsy: Fragments of tubular adenoma. C. Rectal polyp, biopsy: Fragments of hyperplastic polyp. DEREK/ 04/18/2024 MICROSCOPIC DESCRIPTION Slides are reviewed. GROSS DESCRIPTION A. Received in fixative is one container labeled with the patient's name and designated Anastomosis site polyp. The specimen consists of multiple irregular fragments of light bernal soft tissue that in aggregate measure 0.8 x 0.3 x 0.1 cm. The specimen is totally submitted in one cassette. B. Received in fixative is one container labeled with the patient's name and designated Distal transverse colon polyp. The specimen consists of multiple irregular fragments of light bernal soft tissue that in aggregate measure 0.8 x 0.5 x 0.1 cm. The specimen is totally submitted in one cassette. C. Received in fixative is one container labeled with the patient's name and designated Rectal polyp biopsy. The specimen consists of multiple irregular fragments of light bernal soft tissue that in aggregate measure 0.8 x 0.2 x 0.1 cm. The specimen is totally submitted in one cassette. DEREK/ 04/17/2024 TC:1 CPT:73888r0
--- NOTE | 2024-04-14 09:53 | PRE.ANES_ITS ---
ASA Classification* ASA Classification ASA Classification: 2 Assessment & Plan Anesthesia* Anesthesia Assessment Anesthesia Assessment: Discussed sedation and/or anesthesia options, risks, benefits, and alternatives with patient/parents/legal guardian/POA. Questions invited. The patient/parents/legal guardian/POA seems to understand and agrees to proceed with anesthesia plan. Reviewed the physical assessment, medical history, allergy history and patient home medications list prior to surgery/procedure/anesthetic and documented any changes. Performed airway and anesthesia risk assessments. Anesthesia Type Anesthesia Type: MAC Pre-Assessment Diagnosis/Proposed Procedure Planned Operative Procedure(s): cscope Anesthesia History Anesthesia History - bilingual account manager: Anesthesia History - bilingual account manager Hx Hospitalization No 04/10/24 13:25 Any Problems With Anesthesia No 04/10/24 13:25 Cholinesterase deficiency No 04/10/24 13:25 You/Your Family Experience No 04/10/24 13:25 fever (hyperthermia) with Relationship Recent Exposure to Contagious No 06/14/19 12:48 Disease Does patient have nerve No 04/10/24 13:25 stimulator Patient instructed to have device shut off --Does patient have Pacemaker or ICD? When Was Last Pacemaker Check QUESTION #4 FULL TEXT: You/Your Family Experience fever (hyperthermia) with Anesthesia Last Oral Intake Last Oral intake: Last Oral Intake NPO since Meds taken in AM with sips of water? Meds patient instructed to take am of surgery PONV PONV - bilingual account manager: PONV - bilingual account manager Female No 04/10/24 13:25 HX of Motion Sickness No 04/10/24 13:25 HX of N/V After Surgery No 04/10/24 13:25 Non-Smoker Yes 04/10/24 13:25 Duration of Surgery greater No 04/10/24 13:25 than 60 minutes Number of Risk Factors 1 04/10/24 13:25 PONV Score Low Risk 04/10/24 13:25 Height & Weight Height & Weight: Anesthesia: Height & Weight Height 5 ft 7 in 03/27/24 09:10 Respiratory Assessment Respiratory Assessment - bilingual account manager: Respiratory Tract Infection Hx - bilingual account manager Hx Respiratory Tract Infection No 04/10/24 13:25 STOP Sleep Apnea STOP Sleep Apnea - bilingual account manager: STOP Sleep Apnea - bilingual account manager Hx Hypertension No 04/10/24 13:25 Hx Sleep Apnea No 04/10/24 13:25 CPAP BIPAP Do you snore loudly (louder Yes 04/10/24 13:25 than talking or can be heard Do you often feel tired/ Yes 04/10/24 13:25 fatigued/ sleepy during daytime? Has anyone observed you stop No 04/10/24 13:25 breathing during sleep? STOP Results Positive 04/10/24 13:25 QUESTION #5 FULL TEXT : Do you snore loudly (louder than talking or can be heard through closed doors)? 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 Specify any problems Hx of Preganancy in last 3 N/A 04/10/24 13:25 Months Nurse Filling Out Transfusion DSCHRIBER 04/10/24 13:25 & Questions: Date: 04/10/24 04/10/24 13:25 Time: 13:25 04/10/24 13:25 Patient unable to answer at this time (ie. confused, unrespo /Reproduction History /Reproductive History - bilingual account manager: /Reproductive Hx- bilingual account manager Hx Now No 04/10/24 13:25 Gestational Age (in weeks): EDC: Hx Hx Para Hx Section SAB No 04/10/24 13:25 Anesthesia Focused Assessment* Airway Assessment Mouth opens: >3 cm Mallampati Score: II Focused Labs Anesthesia Preop lab: CBC WBC 7.0 K/mm3 (4.4-11.0) 02/14/24 16:05 RBC 4.28 M/mm3 (4.6-6.2) L 02/14/24 16:05 Hgb 13.4 g/dL (13.0-16.5) 02/14/24 16:05 Hct 39.7 % (40-54) L 02/14/24 16:05 Plt Count 234 K/mm3 (150-450) 02/14/24 16:05 CHEMISTRY Potassium 3.9 mmol/L (3.5-5.1) 02/14/24 16:05 Sodium 141 mmol/L (136-145) 02/14/24 16:05 Magnesium 2.1 mg/dL (1.6-2.6) 02/14/24 16:05 Phosphorus 3.2 mg/dL (2.5-4.9) 02/14/24 16:05 BUN 20 mg/dL (7-18) H 02/14/24 16:05 Creatinine 0.91 mg/dL (0.70-1.30) 02/14/24 16:05 Glucose 88 mg/dL (74-106) 02/14/24 16:05 COAG Review of Systems (Anesthesia) ROS Narrative System reviewed and no additional complaints, except as documented. 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 Neuropathy Right hip pain Chemotherapy management, encounter for Admission for fitting of Port-A-Cath Adjustment and management of vascular access device Educational circumstance Colon adenocarcinoma Mass of right forearm Colon cancer Home Medications ?Medication ?Instructions ?Recorded ?Last Taken ?Type ibuprofen 200 mg capsule 400 mg PO Q6H PRN PRN pain 02/28/24 Unknown History Allergy/AdvReac Type Severity Reaction Status Date / Time No Known Allergies Allergy Verified 04/10/24 13:15 Family History Mother Diabetes Uncle Aneurysm Heart disease Father Hypertension Myocardial infarction Heart disease Skin cancer Brother Cancer Testicular Surgical History Hx of colonoscopy with polypectomy H/O hernia repair History of tonsillectomy History of colon resection Social History Smoking Status: Former smoker second hand exposure: No alcohol intake: never substance use type: does not use caffeine: Yes what type of physical activity do you participate in: walking frequency: daily seatbelt use: always
[2024-04-14] MEDS: Lactated Ringers 1,000 ML 15 ML IV (10:15)
--- NOTE | 2024-04-14 11:33 | PCM.HP.BLA ---
History and Physical Date of Admission: 04/14/24 [facility] [address] [place], [place] [id number] OFFICE VISIT Date of Service: 03/27/24 MR#: [id number] Acct: [id number] Name: YUDELKA MOBLEY Rep #: [id number] : 1955 Provider: Dr. 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 Neuropathy Right hip pain Chemotherapy management, encounter for Admission for fitting of Port-A-Cath Adjustment and management of vascular access device 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) Cough Abdominal pain Colon adenocarcinoma Gallstone Mass of right forearm Colon cancer Surgical History H/O hernia repair History of tonsillectomy History of colon resection Family History Mother DiabetesUncle Aneurysm Heart diseaseFather Hypertension Myocardial infarction Heart disease Skin cancerBrother Cancer Testicular Social History Smoking Status: Former smoker second hand exposure: No alcohol intake: never substance use type: does not use caffeine: Yes what type of physical activity do you participate in: walking frequency: daily seatbelt use: always HPI HPI HPI: Patient is a 68-year-old male who presents for evaluation of gallstones. They are referred for surgical consultation from Dr. Buchanan of oncology. Mr. Mobley shares that he undergoes routine surveillance imaging with CT scans of his abdomen and pelvis after a history of a obstructing splenic flexure mass that was resected via a left/distal transverse colectomy through [facility] in 2018. 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 However, he describes starting 2 months ago experiences a left upper quadrant pain. More specifically, pain is described as starting suddenly and became progressively more intense so that he had to leave work. He notes that it was associated with some dry heaves and vomiting but eventually it spontaneously remitted. Now he notes that this pain comes and goes but shares that it is present nearly daily. Along with primary left upper quadrant discomfort Mr. Mobley shares that he occasionally experiences some right lower quadrant discomfort. He states that he was concerned because this pain resembles what he felt when he was transferred emergently with his cancer diagnosis. He specifically denies any right upper quadrant pain or nausea since his initial experience of the pain. He also shares that he is tolerating a diet normally and qualifies this to state that he avoids onions because it gives him gas and also avoid spicy foods such as banana peppers because this will lead to heartburn. Otherwise he denies significant difficulty with heartburn and shares that the occurrence of the symptoms is rare. Patient has had prior colonoscopy, but when Mr. Mobley sets about trying to recall when that scope was he ultimately concludes it was a single follow-up colonoscopy the year after his operation in 2019. They describe their bowel habits as fairly regular with some occasional constipation which she states has become more frequent of late. They have approximately 1 bowel movements per day with occasional significant straining. They have not noticed recent bleeding or dark stools. The patient's weight is stable. The patient is not prescribed anticoagulants/blood thinners. Relevant prior abdominal surgical history includes: Inguinal and umbilical hernia repairs as well as open left hemicolectomy discussed above Patient has a remote history of smoking and states that he has not done so since his diagnosis of colon cancer in 2018. Prior to that he estimates a [id number] smoking history. 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 ROS General General: Yes colon cancer; No weight change, appetite, fatigue, breast cancer or weakness Additional Details: Colon cancer 2018. 18 inches of colon removed at [facility] HEENT: No difficulty swallowing, eye injury, eye surgery, swollen glands or hoarseness Endo Endocrine: No thyroid disease, diabetes mellitus, thyroid cancer, Hair loss, heat intolerance or cold intolerance Skin Skin: No rash or changing moles Breast Breast: No left breast lump, right breast lump, nipple discharge, breast pain, abnormal mammogram, abnormal US or breast enlargement Musc Musculoskeletal: No back problems, arthritis, rheumatoid arthritis, gout or joint pain Cardio Cardiovascular: Yes high blood pressure; No murmur, pacemaker, heart disease, atrial fibrillation, heart attack, heart stent, palpitations, shortness of breat with exertion or chest pain Psych Psychiatric: No depression, anxiety or hearing voices Resp Respiratory: No shortness of breath, No sleep apnea, No cough, No COPD, No asthma, No emphysema and No wheezing Gastro Gastrointestinal: No abdominal pain, No nausea or vomiting, No diarrhea, No constipation, No blood in stool, No acid reflux, No hemorrhoids, No ulcers, No gallbladder problem and No black,tarry stools Andrew Hematologic: No blood thinners, No blood disorders, No bleeding, No anemia and No blood clots Neuro Neurologic: No system reviewed and no additional complaints, except as documented, No as per HPI, No abnormal gait, No abnormal hearing, No abnormal movements, No abnormal speech, No behavioral changes, No burning sensations, No confusion, No convulsions, No disequilibrium, No dizziness, No localized weakness, No frequent falls, No headache(s), No lack of coordination, No loss of vision, No memory loss, No numbness, No other visual disturbances, No radicular pain, No restless legs, No sensory deficit, No syncope, No tingling, No tremor(s), No weakness and No other Exam Const General: cooperative and anxious Resp Effort & Inspection: normal respiratory effort GI Other: Well-healed laparotomy scar, no evidence of hernia, nondistended, soft, mild tenderness to palpation in the left upper quadrant. No right upper quadrant tenderness/negative Spencer sign. Assessment and Plan Assessment and Plan (1) Intermittent left upper quadrant abdominal pain: Status: Acute Comment: Patient is a 68-year-old male who is a colon cancer survivor following diagnosis of an obstructing splenic flexure tumor that was emergently resected in 2018 through the [facility] system we have now presents with complaints of intermittent left upper quadrant abdominal discomfort. He specifically denies any right upper quadrant discomfort or nausea (since his onset of the symptoms 2 months ago). Beyond the similar anatomic regionality for patient's symptoms and his cancer history, I find it concerning that patient has a rising CEA and has not had a colonoscopic evaluation since 2019. Thus, I have shared with Mr. Mobley that it is my recommendation we pursue a surveillance colonoscopy at first mutually available date and I find it unlikely that his symptoms are related to what I believe is an incidental finding of cholelithiasis. Plan: Plan will be to complete colonoscopy on first mutually agreeable date under local MAC. Pre-procedure prep discussed and paper instructions provided. Patient is also made aware that he will need to have a road driver with him the day of the procedure. (2) Gallstone: Status: Acute Qualifiers: Cholecystitis presence: without cholecystitis Biliary obstruction: without biliary obstruction Qualified Code(s): K80.20 - Calculus of gallbladder without cholecystitis without obstruction Comment: Patient with incidental finding of cholelithiasis on surveillance CT imaging. Patient expresses some concern over the gallstones growing in size and number. I measure patient's radiopaque gallstones at approximately 1.5 cm for the 2 largest stones. Otherwise identify a contracted gallbladder about the stones and there does not appear to be any radiographic evidence for inflammation. Moreover, both patient's history and physical are not concerning for a relationship between his chief complaint and this finding. Instead, I believe his symptoms and history warrant a update of his surveillance colonoscopies and have thus made that recommendation as above. Red flag warning signs were given for gallbladder disease in the event that patient should develop them in the future. Plan: ? I find no indication to pursue further investigation or surgical intervention with this finding which I believe is merely incidental Orders: Orders Colonoscopy Today R10.10 - Upper abdominal pain, unspecified, Z85.038 - Personal history of other malignant neoplasm of large intestine I have examined the patient and the H&P has been reviewed. There are no clinical changes since date of exam. Mr. Mobley further specifies that his abdominal discomfort comes and goes. He also confirms that he completed a prep without difficulty and his output is clear. He denies any further questions so we will proceed with colonoscopy as planned for indications as above.
--- NOTE | 2024-04-14 12:21 | PCM.POST.ANE ---
Anesthesia: Postop Eval I Current Vital Signs Temperature: 97 F Pulse Rate: 69 Blood Pressure: 100/57 Respiratory Rate: 16 Pulse Ox: 95 Oxygen Delivery Method: Room Air Assessment Airway patent: Yes Spontaneous unlabored respirations: Yes Mental status: Asleep nausea: No Vomiting: No Anesthesia Complication: No Fluid Hydration Crystalloid volume administer (ml): 900 Total IV fluid infused: 900 Progress Note Anesthesia document: Postop Eval 1 completed: Yes
--- NOTE | 2024-04-14 12:29 | OP.CCLET_ITS ---
04/14/2024 Carlito Crowder Re : Colonoscopy procedure for Danny Scottr Irene This procedure was performed on Sunday, April 14, 2024. My impressions and recommendations are as follows: Impressions : - Perianal skin tags found on perianal exam. - Two medium polyps in the transverse colon and at the anastomosis, removed with a hot snare. Resected and retrieved. - One 2 mm polyp in the rectum. Biopsied. - Internal hemorrhoids. No specimens collected. Recommendations : - Discharge patient to home (via wheelchair). - Resume previous diet today. - Continue present medications. - Await pathology results. - Repeat colonoscopy date to be determined after pending pathology results are reviewed for surveillance based on pathology results. - Telephone my office for pathology results in 1 week. My findings are described in the full procedure note, which is enclosed. If I can be of further assistance, please feel free to contact me at Doctor phone number(s): , Work: . Sincerely, Ba Harris MD 04/14/2024 12:28:39 PM This report has been signed electronically.
--- NOTE | 2024-04-14 12:29 | OP.COLON_ITS ---
Patient Name: Danny Flores Procedure Date: 04/14/2024 11:25 AM Date of : 1955 Age: 68 Procedure: Colonoscopy Indications: Abdominal pain in the left upper quadrant, Personal history of malignant neoplasm of the colon Providers: Ba Harris MD Referring MD: Ba Harris MD Medicines: See the Anesthesia note for documentation of the administered medications Patient Profile: Last Colonoscopy: 5 years ago. He is status post left hemicolectomy 6 years ago. Complications: No immediate complications. Estimated blood loss: Minimal. Procedure: Pre-Anesthesia Assessment: - The heart rate, respiratory rate, oxygen saturations, blood pressure, adequacy of pulmonary ventilation, and response to care were monitored throughout the procedure. After I obtained informed consent, the scope was passed under direct vision. Throughout the procedure, the patient's blood pressure, pulse, and oxygen saturations were monitored continuously. The Colonoscope was introduced through the anus and advanced to the terminal ileum. The colonoscopy was somewhat difficult due to post-surgical anatomy. Successful completion of the procedure was aided by straightening and shortening the scope to obtain bowel loop reduction. Scope In: 11:48:46 AM Scope Withdrawal Time 0 hours 10 minutes 12 seconds Scope Out: 12:14:59 PM Total Procedure Duration Time 0 hours 26 minutes 13 seconds Findings: Skin tags were found on perianal exam. Enlarged prostate, No biopsies or other specimens were collected for this exam. Two semi-pedunculated polyps were found in the transverse colon and anastomosis. The polyps were medium in size. These polyps were removed with a hot snare. Resection and retrieval were complete. Estimated blood loss was minimal. A 2 mm polyp was found in the rectum. The polyp was semi-sessile. Biopsies were taken with a cold forceps for histology. Estimated blood loss was minimal. Internal hemorrhoids were found during retroflexion. The hemorrhoids were mild and Grade I (internal hemorrhoids that do not prolapse). No biopsies or other specimens were collected for this exam. Impression: - Perianal skin tags found on perianal exam. - Two medium polyps in the transverse colon and at the anastomosis, removed with a hot snare. Resected and retrieved. - One 2 mm polyp in the rectum. Biopsied. - Internal hemorrhoids. No specimens collected. Recommendation: - Discharge patient to home (via wheelchair). - Resume previous diet today. - Continue present medications. - Await pathology results. - Repeat colonoscopy date to be determined after pending pathology results are reviewed for surveillance based on pathology results. - Telephone my office for pathology results in 1 week. Procedure Code(s): --- Professional --- 95120, Colonoscopy, flexible; with removal of tumor(s), polyp(s), or other lesion(s) by snare technique 81595, 59, Colonoscopy, flexible; with biopsy, single or multiple Diagnosis Code(s): --- Professional --- D12.3, Benign neoplasm of transverse colon (hepatic flexure or splenic flexure) D12.8, Benign neoplasm of rectum K64.0, First degree hemorrhoids K64.4, Residual hemorrhoidal skin tags R10.12, Left upper quadrant pain Z85.038, Personal history of other malignant neoplasm of large intestine CPT copyright 2021 [employer]. All rights reserved. The codes documented in this report are preliminary and upon locomotive firer review may be revised to meet current compliance requirements. Ba Harris MD 04/14/2024 12:28:39 PM This report has been signed electronically. Number of Addenda: 0 Note Initiated On: 04/14/2024 11:25 AM
--- NOTE | 2024-04-14 15:25 | PCM.POSTANE2 ---
Anesthesia Postop Eval I Sum Postop Eval Completion status Anesthesia document: Postop Eval 1 completed: Yes Anesthesia Postop Eval I Summary Anesthesia Postop Eval I Summary: Anesthesia Postop Eval I: Assessment Summary Airway patent Yes 04/14/24 12:29 [email or web address] Spontaneous unlabored Yes 04/14/24 12:29 [email or web address] respirations Mental status Asleep 04/14/24 12:29 [email or web address] nausea No 04/14/24 12:29 [email or web address] Vomiting No 04/14/24 12:29 [email or web address] Anesthesia Postop Eval I: Fluid Summary Crystalloid volume administer 900 04/14/24 12:29 [email or web address] (ml) Colloids volume administered ( ml) Blood Product volume administered (ml) Total IV fluid infused 900 04/14/24 12:29 [email or web address] Anesthesia Postop Eval I: Summary Notes Anesthesia Complication No 04/14/24 12:29 [email or web address] Anesthesia Complication Comment: Post-operative progress note Anesthesia: Postop Eval II Evaluation Mental status: Awake and Calm Pain Level: 0 nausea: No Vomiting: No Complications Anesthesia Complication: No
== END 2024-04-14 13:30 | disposition home or self-care (01) ==
LOC: EN 09:44 → AC 09:52
PROVIDERS: PCP Physician Assistant Medical; Referring Provider Physician Assistant Medical; Visit Provider Surgery
PROC: 0DJD8ZZ Inspection of Lower Intestinal Tract, Via Natural or Artificial Opening Endoscopic (ICD-10-PCS; CPT 45378; principal; 2024-04-14 10:55)
DX: D12.3 Benign neoplasm of transverse colon (principal); K80.20 Calculus of gallbladder without cholecystitis without obstruction; K64.0 First degree hemorrhoids; Z87.891 Personal history of nicotine dependence; K62.1 Rectal polyp; Z90.49 Acquired absence of other specified parts of digestive tract; I10 Essential (primary) hypertension; Z85.038 Personal history of other malignant neoplasm of large intestine; K64.4 Residual hemorrhoidal skin tags; N40.0 Benign prostatic hyperplasia without lower urinary tract symptoms; Z98.0 Intestinal bypass and anastomosis status; Z87.19 Personal history of other diseases of the digestive system; Z86.010 Personal history of colon polyps
CPT/HCPCS: 45380; 45385; 88305; J7120; J2405

== ENCOUNTER 2024-12-04 10:08 | Emergency (ER) | payer OTHER, SELFPAY ==
[2024-12-04 10:09] VITALS: BP 171/108; PULSE 99; RESP 20; TEMP 35.9; O2SAT 94; BMI 24.7
--- NOTE | 2024-12-04 10:24 | US_ITS ---
EXAM: US Abdomen Limited, Right Upper Quadrant CLINICAL INDICATION: TECHNIQUE: Real-time ultrasound of the right upper quadrant with image documentation. COMPARISON: No relevant prior studies available. FINDINGS: LIVER: Liver measures up to 18.1 cm. No intrahepatic bile duct dilation. GALLBLADDER: Cholelithiasis. Positive Spencer's sign. COMMON BILE DUCT: Unremarkable as visualized. No stones. No dilation. Common bile duct measures 0.35 cm in diameter. PANCREAS: Unremarkable as visualized. RIGHT KIDNEY: Right kidney measures up to 10.1 cm. No stones. No hydronephrosis. US/Abdomen Limited IMPRESSION: Cholelithiasis with positive Spencer sign. No wall thickening or pericholecysti c fluid. Findings are equivocal for acute cholecystitis. If symptoms persist, further evaluation with HIDA scan is recom mended. Reading Location: [facility]
[2024-12-04] MEDS: Ondansetron 4 MG/2 ML Vial IV (10:39)
[2024-12-04] MEDS: 0.9% Normal Saline (500mL Bag) 500 ML 1000 ML IV (10:39)
[2024-12-04] MEDS: Morphine 4 MG/ML Syringe IV (10:39)
[2024-12-04 10:41] LABS: Absolute Lymphocyte Count 1.89 X10^3/uL (0.83-4.51); Absolute Neutrophil Count 6.4 X10^3/uL (2.0-7.7); Basophil# 0.02 X10^3/uL; Basophil% 0.2 % (0-1); Eosinophils% 1.1 % (0-5); Hematocrit 45.2 % (40-54); Hemoglobin 15.5 g/dL (13.0-16.5); Lymphocyte # 1.89 X10^3/ul (0.83-4.51); Lymphocyte % 20.6 % (19-41); Mean Corp Hgb Conc 34.3 g/dL (32-36); Mean Corpuscular Volume 93.2 fL (80-94); Mean Platelet Vol. 10.4 fl (6.2-12.0); Monocyte% 7.6 % (0-10); NRBC Flagged by Analyzer 0 % (0-5); Neutrophil # 6.43 X10^3/uL (2.7-7.7); Neutrophil % 70.2 % (47-70); POSITIVE COUNT YES; RBC Distribution Width CV 13.1 % (11.6-14.6); RBC Distribution Width SD 44.4 fl (35.1-43.9); Red Blood Count 4.85 M/mm3 (4.6-6.2); White Blood Count 9.2 K/mm3 (4.4-11.0)
--- NOTE | 2024-12-04 10:44 | EX.ED.DYSGE1 ---
HPI History of Present Illness Chief Complaint: Abd Pain Informant: patient Narrative Narrative: 69-year-old male presenting with abdominal pain. Patient states he has ongoing problems with abdominal pain. Yesterday he states he ate a pop tart and started having abdominal cramping. This worsened again after dinner. Denies fever. He has had nausea and vomiting. Complains of constipation. He has history of colon cancer treated with colon resection, chemotherapy in 2018. He follows with oncology. He states he had a colonoscopy last year. 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 Neuropathy Right hip pain Chemotherapy management, encounter for Admission for fitting of Port-A-Cath Adjustment and management of vascular access device Educational circumstance Colon adenocarcinoma Mass of right forearm Colon cancer Home Medications ?Medication ?Instructions ?Recorded ?Last Taken ?Type ibuprofen 200 mg capsule 400 mg PO Q6H PRN PRN pain 02/28/24 Unknown History dicyclomine 20 mg tablet 20 mg PO TID PRN abdominal pain 10 12/04/24 Unknown Rx days #30 tabs ondansetron 4 mg disintegrating 4 mg PO Q8H PRN PRN Nausea #10 tabs 12/04/24 Unknown Rx tablet Allergy/AdvReac Type Severity Reaction Status Date / Time No Known Allergies Allergy Verified 12/04/24 10:10 Family History Mother Diabetes Uncle Aneurysm Heart disease Father Hypertension Myocardial infarction Heart disease Skin cancer Brother Cancer Testicular Surgical History Hx of colonoscopy with polypectomy H/O hernia repair History of tonsillectomy History of colon resection Social History Smoking Status: Former smoker second hand exposure: No alcohol intake: never substance use type: does not use caffeine: Yes what type of physical activity do you participate in: walking frequency: daily seatbelt use: always ROS ROS ED Constitutional Constitutional ED: Denies fever(s) Eyes Eyes: Denies change in vision ENT ENT ED: Denies rhinorrhea or sore throat Cardiovascular Cardiovascular: Denies chest pain or palpitations Respiratory/Chest Respiratory/Chest: Denies cough or dyspnea Gastrointestinal Gastrointestinal: Reports abdominal pain, nausea and vomiting; Denies diarrhea Genitourinary Genitourinary ED: Denies dysuria Musculoskeletal Musculoskeletal: Denies myalgias Integumentary Denies rash Neurologic Neurologic: Denies headache(s) Psychiatric Psychiatric: Denies suicidal thoughts EXAM Physical Exam Const Vital Signs: 12/04/24 10:09 12/04/24 12:09 12/04/24 14:00 Temperature 96.7 F L Temperature Source Temporal Pulse Rate 99 60 Respiratory Rate 20 H 18 Blood Pressure 171/108 H 130/79 H 135/87 H Blood Pressure Mean 129 96 102 Pulse Ox 94 96 90 Oxygen Delivery Method Room Air Positive well nourished and well developed General Appearance ED: well developed HEENT Reports normocephalic and head/scalp atraumatic Eyes PERRL and EOMs intact bilaterally Neck supple General: Negative for tenderness Chest Wall inspection of chest normal Resp normal respiratory effort and clear to auscultation bilaterally Cardio regular rate and regular rhythm GI non-distended GI Narrative: Right upper quadrant tenderness, no guarding or rebound Palpation: soft; Negative for guarding or rebound tenderness present no CVA tenderness Extremity normal to inspection Neuro oriented x3 Sensorium / Orientation: alert Psych mental status grossly normal Skin no rashes or lesions noted MDM MDM MDM Narrative Medical decision making narrative: 69-year-old male presenting with right upper quadrant abdominal pain. Differential diagnosis includes cholecystitis, pancreatitis, gastritis. Patient was given morphine, Zofran. CBC shows a normal white count. Chemistries are unremarkable. Liver enzymes are normal. Lipase 29. Abdominal ultrasound shows cholelithiasis with positive Spencer sign. No wall thickening or pericholecystic fluid. Findings are equivocal for acute cholecystitis. KUB read by myself and radiology shows cholelithiasis, bowel gas pattern is unremarkable. On repeat evaluation, patient continues to have mild right upper quadrant tenderness. Findings discussed with Dr. Simms on-call for general surgery. Recommend discharge with outpatient follow-up. Patient is agreeable to this plan. He was given a prescription for Bentyl and Zofran. Advised return to ED for worsening complaints. History & Record Review Discussion w/independent historian: Patient Lab Data Attestation: I reviewed the patient's lab results. Labs: Laboratory Results - last 24 hr 12/04/24 10:30 WBC 9.2 RBC 4.85 Hgb 15.5 Hct 45.2 MCV 93.2 MCH 32.0 MCHC 34.3 RDW Std Deviation 44.4 H RDW Coeff of Debo 13.1 Plt Count MPV 10.4 Immature Gran % (Auto) 0.300 Neut % (Auto) 70.2 H Lymph % (Auto) 20.6 Pike % (Auto) 7.6 Eos % (Auto) 1.1 Baso % (Auto) 0.2 Absolute Neuts (auto) 6.4 Absolute Lymphs (auto) 1.89 Nucleated RBC % 0 Platelet Estimate ADEQUATE Sodium 136 Potassium 4.3 Chloride 101 Carbon Dioxide 29.0 Anion Gap 6 BUN 19 H Creatinine 1.14 Estim Creat Clear Calc 57.98 Est GFR (MDRD) Af Amer 82 Est GFR (MDRD) Non-Af 68 BUN/Creatinine Ratio 16.7 Glucose 99 Calcium 9.5 Total Bilirubin 0.80 AST 17 ALT 19 Alkaline Phosphatase 103 Total Protein 7.7 Albumin 3.7 Globulin 4.0 Albumin/Globulin Ratio 0.9 Lipase 29 L Radiography Diagnostic Testing: Clinical Impression(s) from Imaging Studies Abdomen Ultrasound 12/04/24 10:24 IMPRESSION: Cholelithiasis with positive Spencer sign. No wall thickening or pericholecystic fluid. Findings are equivocal for acute cholecystitis. If symptoms persist, further evaluation with HIDA scan is recommended. Reading Location: COUNTS [facility] 234 BEDS AT THE [facility] KUB X-Ray 12/04/24 15:00 IMPRESSION: Cholelithiasis is again noted. Prominent degenerative changes of the spine are again seen. The bowel-gas pattern is unremarkable. No mass or mass effect is seen. Reading Location: [id number] Discharge Plan Triage Chief Complaint: Abd Pain ED Provider: Yamileth Lemus Dx/Rx/DC Orders Clinical Impression: Cholelithiasis Instructions: ED Gallstones with Biliary Colic Prescriptions: New dicyclomine 20 mg tablet 20 mg PO TID PRN (Reason: abdominal pain) 10 Days Qty: 30 0RF ondansetron 4 mg tablet,disintegrating 4 mg PO Q8H PRN PRN (Reason: Nausea) Qty: 10 0RF No Action ibuprofen 200 mg capsule 400 mg PO Q6H PRN PRN (Reason: pain) Primary Care Provider: Care Physician,No Primary Referrals: Jass Simms MD [Med Staff - Active Staff] - Elizabeth Bonilla PA [Non-Staff] - Print Language: Armenian Disposition Disposition: Home, Self Care
[2024-12-04 11:06] LABS: ALB/GLOB Ratio 0.9 RATIO (0.9-2.4); AST(SGOT) 17 U/L (15-37); Alanine Aminotransfer ALT/SGPT 19 U/L (16-61); Albumin, Serum 3.7 g/dL (3.2-5.0); Alkaline Phosphatase 103 U/L (45-117); Anion Gap 6 (5-15); BUN 19 mg/dL (7-18); BUN/Creat Ratio 16.7 RATIO (10-20); Calcium,Total 9.5 mg/dL (8.5-10.1); Chloride 101 mmol/L (98-107); Creatinine, Serum 1.14 mg/dL (0.70-1.30); EST Glomerular Filtration Rate 68 mL/min (>60); Est Glom Filt Rate - Afr Amer 82 mL/min (>60); Estimated Creatinine Clearance 57.98 ml/min; Glucose 99 mg/dL (74-106); Lipase 29 U/L (73-393); Potassium 4.3 mmol/L (3.5-5.1); Protein, Total 7.7 g/dL (6.4-8.2); Sodium Level 136 mmol/L (136-145)
[2024-12-04 12:04] LABS: Differential Indicated SCAN CRITERIA MET
[2024-12-04 12:07] LABS: Platelet Estimate ADEQUATE (ADEQ)
[2024-12-04 12:09] VITALS: BP 130/79; PULSE 60; RESP 18; O2SAT 96
[2024-12-04 14:00] VITALS: BP 135/87; O2SAT 90
--- NOTE | 2024-12-04 15:00 | RAD_ITS ---
PROCEDURE: ABDOMEN SINGLE VIEW (PORTABLE) REASON FOR EXAM: Abdominal pain. TECHNIQUE: Two-view supine abdomen. COMPARISON: Theoretical Physics Teacher from the CT of 02/24/2024 RAD/Abdomen Single View (Portable) IMPRESSION: Cholelithiasis is again noted. Prominent degenerative changes of the spine are again seen. The bowel-gas pattern is unremarkable. No mass or mass effect is seen. Reading Location: [id number]
[2024-12-04 16:00] VITALS: BP 153/91; O2SAT 95
[2024-12-04 16:24] VITALS: BP 161/98; PULSE 73; RESP 18; TEMP 36.3; O2SAT 93
--- NOTE | 2024-12-04 18:22 | CM.ED ---
Social Work Reason for visit: No PCP Patient verified that he currently does not have a PCP. [facility] provider list given. No other needs identified at this time. Chel Adam, STEAM FITTER HELPER, NURSERY HAND
== END 2024-12-04 16:25 | disposition home or self-care (01) ==
PROVIDERS: Emergency Provider Emergency Medicine; Visit Provider Emergency Medicine
DX: K80.20 Calculus of gallbladder without cholecystitis without obstruction (principal); Z90.49 Acquired absence of other specified parts of digestive tract; Z85.048 Personal history of other malignant neoplasm of rectum, rectosigmoid junction, and anus; Z87.891 Personal history of nicotine dependence
CPT/HCPCS: 74018; 76705; 80053; 83690; 85025; 96361; 96374; 96375; 99283; A4216; J2405

== ENCOUNTER 2024-12-27 12:10 | Day surgery (SDC) | payer MEDICARE, BC, SELFPAY ==
[2024-12-27] VITALS (19 sets, daily range): BP systolic 132–180; BP diastolic 82–98; PULSE 53–93; RESP 12–18; TEMP 36.1–37; O2SAT 92–100; BMI 23.4
--- NOTE | 2024-12-27 | GALL_PTH ---
PATIENT: DANNY [place]OBLEY [place] [facility] [id number] AGE/SX: 69/M ROOM: RE12/27/[address]: Dr. Jass Simms MD : [id number] BED: DIS: 12/27/2024 SPEC #: [id number] RECD: 12/28/24 10:37 STATUS: YESENIA REDemetrio #: [id number] TIO: 12/27/24 00:[address]: Jass Simms DEPT: SURGICAL PATHOLOGY RECD BY: Ish Max ENTERED: 12/28/24 10:37 SP TYPE: AURA GORDON DR: MOISÉS Crowder Tissues: Gallbladder, NOS Procedures: Surgery Specimen Level III HEADER OPERATION: Laparoscopic, cholecystectomy with IOC PRE-OP DIAGNOSIS: Intermittent left upper quadrant abdominal pain TISSUE SUBMITTED: Gallbladder MICROSCOPIC DIAGNOSIS Gallbladder, cholecystectomy: * Mild chronic inflammation with focal intestinal metaplasia. * Cholelithiasis. MICROSCOPIC DESCRIPTION Slides are reviewed. GROSS DESCRIPTION Received in formalin labeled Danny Mobley and designated gallbladder is a dark green, wrinkled, intact gallbladder that measures 8.5 cm long by 3.2 cm in diameter. The mucosa is dark green and granular. Sectioning shows a 0.2 cm wall thickness. There are 2 dark green irregular shaped calculi within the lumen of the specimen that aggregate to 3.0 x 1.6 x 1.5 cm. Plastics Bench Mechanic sections of the gallbladder are submitted in one cassette.JOSSELYN. 12/28/2024 CPT:15916
--- NOTE | 2024-12-27 12:00 | RAD_ITS ---
PROCEDURE: CHOLANGIOGRAM/ O R,INITIAL REASON FOR EXAM: Laparoscopic cholecystectomy. TECHNIQUE: Intraoperative cholangiogram was performed by the surgeon. Imaging was provided. COMPARISON: None FINDINGS: The intrahepatic biliary ducts are unremarkable. The common bile duct is not dilated. No intraluminal filling defect is seen. There is free flow of contrast into the duodenum. RAD/Cholangiogram/ O R,Initial IMPRESSION: Unremarkable intraoperative cholangiogram. Reading Location: [facility]
--- NOTE | 2024-12-27 12:29 | PRE.ANES_ITS ---
ASA Classification* ASA Classification ASA Classification: 2 Assessment & Plan Anesthesia* Anesthesia Assessment Anesthesia Assessment: Discussed sedation and/or anesthesia options, risks, benefits, and alternatives with patient/parents/legal guardian/POA. Questions invited. The patient/parents/legal guardian/POA seems to understand and agrees to proceed with anesthesia plan. Reviewed the physical assessment, medical history, allergy history and patient home medications list prior to surgery/procedure/anesthetic and documented any changes. Performed airway and anesthesia risk assessments. Anesthesia Type Anesthesia Type: General Anesthesia Focused Assessment* Airway Assessment Mouth opens: >3 cm Mallampati Score: II Focused Labs Anesthesia Preop lab: CBC WBC 9.2 K/mm3 (4.4-11.0) 12/04/24 10:12/04/24 RBC 4.85 M/mm3 (4.6-6.2) 12/04/24 10:12/04/24 Hgb 15.5 g/dL (13.0-16.5) 12/04/24:12/04/24 Hct 45.2 % (40-54) 12/04/24 10:12/04/24 Plt Count K/mm3 (150-450) 12/04/24 10:12/04/24 CHEMISTRY Potassium 4.3 mmol/L (3.5-5.1) 12/04/24:12/04/24 Sodium 136 mmol/L (136-145) 12/04/24 10:12/04/24 Magnesium 2.1 mg/dL (1.6-2.6) 02/14/24 16:05 02/14/24 Phosphorus 3.2 mg/dL (2.5-4.9) 02/14/24 16:05 02/14/24 BUN 19 mg/dL (7-18) H 12/04/24:12/04/24 Creatinine 1.14 mg/dL (0.70-1.30) 12/04/24:12/04/24 Glucose 99 mg/dL (74-106) 12/04/24 10:12/04/24 COAG Pre-Assessment Diagnosis/Proposed Procedure Planned Operative Procedure(s): LAP CHOLEY WITH GRAMS Anesthesia History Anesthesia History - television presenter: Anesthesia History - television presenter Hx Hospitalization No 12/18/24 13:16 Any Problems With Anesthesia No 12/18/24 13:16 Cholinesterase deficiency No 12/18/24 13:16 You/Your Family Experience No 12/18/24 13:16 fever (hyperthermia) with Relationship Recent Exposure to Contagious No 04/14/24 10:13 Disease Does patient have nerve No 12/18/24 13:16 stimulator Patient instructed to have device shut off --Does patient have Pacemaker or ICD? When Was Last Pacemaker Check QUESTION #4 FULL TEXT: You/Your Family Experience fever (hyperthermia) with Anesthesia Last Oral Intake Last Oral intake: Last Oral Intake NPO since Meds taken in AM with sips of water? Meds patient instructed to take am of surgery PONV PONV - television presenter: PONV - television presenter Female No 12/18/24 13:16 HX of Motion Sickness No 12/18/24 13:16 HX of N/V After Surgery No 12/18/24 13:16 Non-Smoker Yes 12/18/24 13:16 Duration of Surgery greater No 12/18/24 13:16 than 60 minutes Number of Risk Factors 1 12/18/24 13:16 PONV Score Low Risk 12/18/24 13:16 Height & Weight Height & Weight: Anesthesia: Height & Weight Height 5 ft 7 in 12/12/24 14:58 Respiratory Assessment Respiratory Assessment - television presenter: Respiratory Tract Infection Hx - television presenter Hx Respiratory Tract Infection No 12/18/24 13:16 STOP Sleep Apnea STOP Sleep Apnea - television presenter: STOP Sleep Apnea - television presenter Hx Hypertension Yes: NO MEDS FOR MANY YRS 12/18/24 13:16 Hx Sleep Apnea No 12/18/24 13:16 CPAP No 04/14/24 12:21 BIPAP Do you snore loudly (louder No 12/18/24 13:16 than talking or can be heard Do you often feel tired/ No 12/18/24 13:16 fatigued/ sleepy during daytime? Has anyone observed you stop No 12/18/24 13:16 breathing during sleep? STOP Results Negative 12/18/24 13:16 QUESTION #5 FULL TEXT : Do you snore loudly (louder than talking or can be heard through closed doors)? 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 Specify any problems Hx of Preganancy in last 3 N/A 12/18/24 13:16 Months Nurse Filling Out Transfusion DSCHRIBER 12/18/24 13:16 & Questions: Date: 12/18/24 12/18/24 13:16 Time: 13:17 12/18/24 13:16 Patient unable to answer at this time (ie. 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 Neuropathy Right hip pain Chemotherapy management, encounter for Admission for fitting of Port-A-Cath Adjustment and management of vascular access device Educational circumstance Colon adenocarcinoma Mass of right forearm Colon cancer Home Medications ?Medication ?Instructions ?Recorded ?Last Taken ?Type dicyclomine 20 mg tablet 20 mg PO TID PRN abdominal p ain 10 12/04/24 Unknown Rx days #30 tabs Allergy/AdvReac Type Severity Reaction Status Date / Time No Known Allergies Allergy Verified 12/27/24 12:29 Family History Mother Diabetes Uncle Aneurysm Heart disease Father Hypertension Myocardial infarction Heart disease Skin cancer Brother Cancer Testicular Surgical History Hx of colonoscopy with polypectomy H/O hernia repair History of tonsillectomy History of colon resection Social History Smoking Status: Former smoker second hand exposure: No alcohol intake: never substance use type: does not use caffeine: Yes what type of physical activity do you participate in: walking frequency: daily seatbelt use: always Review of Systems (Anesthesia) ROS Narrative System reviewed and no additional complaints, except as documented.
[2024-12-27] MEDS: 0.9% Normal Saline (1000mL) 1,000 ML 15 ML IV (12:48)
--- NOTE | 2024-12-27 13:33 | HP.PCM_ITS ---
HPI - General General Date of Admission: 12/27/24 Date of Service: 12/27/24 HPI Narrative YUDELKA MOBLEY, is a 69 M who presents for elective cholecystectomy. Patient was seen in the office recently with complaints of intermittent right upper quadrant pain. He was found to have gallstones. 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 Neuropathy Right hip pain Chemotherapy management, encounter for Admission for fitting of Port-A-Cath Adjustment and management of vascular access device Educational circumstance Colon adenocarcinoma Mass of right forearm Colon cancer Home Medications ?Medication ?Instructions ?Recorded ?Last Taken ?Type dicyclomine 20 mg tablet 20 mg PO TID PRN abdominal p ain 10 12/04/24 Unknown Rx days #30 tabs Allergy/AdvReac Type Severity Reaction Status Date / Time No Known Allergies Allergy Verified 12/27/24 12:29 Family History Mother Diabetes Uncle Aneurysm Heart disease Father Hypertension Myocardial infarction Heart disease Skin cancer Brother Cancer Testicular Surgical History Hx of colonoscopy with polypectomy H/O hernia repair History of tonsillectomy History of colon resection Social History Smoking Status: Former smoker second hand exposure: No alcohol intake: never substance use type: does not use caffeine: Yes what type of physical activity do you participate in: walking frequency: daily seatbelt use: always Vital Signs Vital Signs Vital Signs: 12/27/24 12:31 12/27/24 12:31 Temperature 98.6 F Temperature Source Temporal Pulse Rate 85 Respiratory Rate 16 Respiratory Pattern Normal Blood Pressure 168/91 H Blood Pressure Mean 116 Blood Pressure Source Monitor Blood Pressure Position Semi-Fowlers Blood Pressure Location Right Arm Pulse Ox 97 Oxygen Delivery Method Room Air Weight Weight: 149 lb 14.629 oz Body Mass Index (BMI) 23.4 Physical Exam Const alert, oriented x3 and no apparent distress Assessment & Plan Assessment/Plan (1) Intermittent left upper quadrant abdominal pain: PLAN: Plan The patient is a 69-year-old male with intermittent right upper quadrant pain and gallstones. I have offered him laparoscopic cholecystectomy as treatment. We discussed the details of the planned procedure including the risk benefits alternatives. He wishes to proceed. Surgery will begin shortly Charges/Coding Visit Charges Inpatient E&M: 50264 Init Hosp L1
[2024-12-27] MEDS: Bupiv/Epi 0.25% 30 ML Vial (14:54)
--- NOTE | 2024-12-27 15:33 | PCM.POST.ANE ---
Anesthesia: Postop Eval I Current Vital Signs Temperature: 97 F Pulse Rate: 78 Blood Pressure: 180/92 Respiratory Rate: 18 Pulse Ox: 100 Oxygen Delivery Method: Venturi Mask Oxygen Flow Rate (L/min): 6 Assessment Airway patent: Yes Spontaneous unlabored respirations: Yes Mental status: Awake and Calm nausea: No Vomiting: No Anesthesia Complication: No Fluid Hydration Crystalloid volume administer (ml): 900 Total IV fluid infused: 900 Progress Note Anesthesia document: Postop Eval 1 completed: Yes
--- NOTE | 2024-12-27 15:35 | POSTOPAN2_ITS ---
Anesthesia Postop Eval I Sum Postop Eval Completion status Anesthesia document: Postop Eval 1 completed: Yes Anesthesia Postop Eval I Summary Anesthesia Postop Eval I Summary: Anesthesia Postop Eval I: Assessment Summary Airway patent Yes 12/27/24 15:34 LEAD [email or web address] [email or web address] Spontaneous unlabored Yes 12/27/24 15:34 LEAD SLOT [email or web address] respirations Mental status Awake,Calm 12/27/24 15:34 LEAD SLOT [email or web address] nausea No 12/27/24 15:34 LEAD SLOT [email or web address] Vomiting No 12/27/24 15:34 LEAD SLOT [email or web address] Anesthesia Postop Eval I: Fluid Summary Crystalloid volume administer 900 12/27/24 15:34 LEAD SLOT [email or web address] (ml) Colloids volume administered ( ml) Blood Product volume administered (ml) Total IV fluid infused 900 12/27/24 15:34 LEAD SLOT [email or web address] Anesthesia Postop Eval I: Summary Notes Anesthesia Complication No 12/27/24 15:34 LEAD SLOT [email or web address] Anesthesia Complication Comment: Post-operative progress note Anesthesia: Postop Eval II Evaluation Mental status: Awake Pain Level: 0 nausea: No Vomiting: No
--- NOTE | 2024-12-27 15:35 | PCM.POSTANE2 ---
Anesthesia Postop Eval I Sum Postop Eval Completion status Anesthesia document: Postop Eval 1 completed: Yes Anesthesia Postop Eval I Summary Anesthesia Postop Eval I Summary: Anesthesia Postop Eval I: Assessment Summary Airway patent Yes 12/27/24 15:34 MARKETING STRATEGY [email or web address] Spontaneous unlabored Yes 12/27/24 15:34 MARKETING STRATEGY ANALYST.LMIL respirations Mental status Awake,Calm 12/27/24 15:34 MARKETING STRATEGY ANALYST.LMIL nausea No 12/27/24 15:34 MARKETING STRATEGY ANALYST.[email or web address] Vomiting No 12/27/24 15:34 MARKETING STRATEGY ANALYST.[email or web address] Anesthesia Postop Eval I: Fluid Summary Crystalloid volume administer 900 12/27/24 15:34 MARKETING STRATEGY ANALYST.LMIL (ml) Colloids volume administered ( ml) Blood Product volume administered (ml) Total IV fluid infused 900 12/27/24 15:34 MARKETING STRATEGY ANALYST.[email or web address] Anesthesia Postop Eval I: Summary Notes Anesthesia Complication No 12/27/24 15:34 MARKETING STRATEGY ANALYST.[email or web address] Anesthesia Complication Comment: Post-operative progress note Anesthesia: Postop Eval II Evaluation Mental status: Awake Pain Level: 0 nausea: No Vomiting: No
--- NOTE | 2024-12-27 16:05 | EX.PCM.DISCH ---
Discharge Instructions Diet Discharge Diet: Light diet - advance as tolerated Activity Discharge Activity: Return to Normal Activity and May Shower May shower in (days): 1 Ice area for (Minutes): 30 Lifting Restrictions: No lifting over 20 pounds for about 4 weeks Dressing / Incision Call your doctor if your incision/area has: Continuous Slow Oozing, Sudden Increased Bleeding, Increased Pain/ Swelling, Increased Redness, Foul Smelling Discharge and Swelling at the incision site Call your doctor if you observe: Fever of 101 or Higher Cleanse incision/area with: Soap & Water Follow Up Care Please Follow Up With: Jass Simms MD When: 2 weeks. Please call office to schedule appointment if 1 is not already made Test Results: Test results from this visit will be discussed in further detail at your follow-up appointment, if applicable. Discharge Plan Admission Primary Reason for Your Visit: Laparoscopic cholecystectomy Attending Provider: Jass Simms Primary Care Provider: Elizabeth Bonilla Instructions Print Language: Bermudian Discharge Orders/Prescriptions Prescriptions: New oxycodone-acetaminophen [Percocet] 5-325 mg tablet 1 tab PO Q8H PRN (Reason: pain) 4 Days Qty: 12 0RF Continued dicyclomine 20 mg tablet 20 mg PO TID PRN (Reason: abdominal pain) 10 Days Qty: 30 0RF Referrals / Follow Up: Elizabeth Bonilla PA [Primary Care Provider] - Disposition Disposition (needs filled in before D/C Order can be placed): Home, Self Care
--- NOTE | 2024-12-27 16:53 | PCM.OPRPT ---
Problems Associated Problem List Diagnoses (1) Gallstone: Procedures Digestive 40xxx-49xxx: [id number] Laparo cholecystectomy/graph Operative Report (Standard) Operative Information Date of Procedure: 12/27/24 Pre-Operative Diagnosis: Symptomatic cholelithiasis Post-Operative Diagnosis: Same Surgery/Procedure Performed: Laparoscopic cholecystectomy with intraoperative cholangiograms stack clerk: Yes Photographic Intelligence Officer: Tika Mcdaniel Tasks completed by public health training assistant: Closing and Retracting Additional community assistant?: No Type of Anesthesia: General and Local RN Documented Start/Stop Times: Operation Date: 12/27/24 13:00 Case Time Into Pre-Op 12/27/24 12:30 Anesthesia Start 12/27/24 13:54 Into Room 12/27/24 13:54 Procedure Start 12/27/24 14:15 Procedure End 12/27/24 15:10 Anesthesia End 12/27/24 15:23 Out of Room 12/27/24 15:23 Into Recovery 12/27/24 15:28 Procedure Start Time: 14:15 Procedure Stop Time: 15:10 Select all DRAINS/GRAFTS/IMPLANTS that apply: None Estimated Blood Loss: 20 mL Specimen collected: Yes Description of specimen(s) removed: Gallbladder Description of surgery: The patient is a 69-year-old male who was recently seen through the office with episodes of right upper quadrant pain and gallstones. This was thought to be most likely biliary colic in nature. As result I offered him a laparoscopic cholecystectomy as treatment. We discussed the details of the planned procedure including the risks benefits and alternatives. He wished to proceed. He was brought to the operating room today following informed consent. He was placed supine the operative table with arms outstretched on arm boards. General endotracheal anesthesia was induced. Once adequately anesthetized, the abdomen is then prepped and draped in the usual sterile manner. Patient had a midline abdominal incision. I elected to do an optical trocar entry in the right side of the abdomen. This was placed without incident. Once in place the abdomen is then fully insufflated with CO2 gas. It was noted that he had some adhesions along the midline. I was then able to place another trocar slightly more medial but still in the right upper quadrant. I placed another 5 mm trocar in the low midline away from the adhesions for the camera. Lastly I placed a 10 mm trocar in the epigastric area. All of these were placed without difficulty. Patient was then placed in some mild head up positioning and rolled to the left. The gallbladder was identified and was reflected in a cephalad direction. There was some adhesions stuck to the undersurface of the gallbladder. I suspect most of these adhesions may have been related to his previous colectomy. Otherwise the gallbladder appeared to be relatively normal in its appearance. It did not seem to be thickened or dilated. Once the dissection was carried out to expose the infundibulum. Cystic duct and cystic artery were then dissected out. The cystic artery was identified as I was taking down peritoneum on the medial side of the gallbladder I encountered some bleeding. This turned out to be the cystic artery this was promptly dissected out and clipped using a 10 mm clip client evaluator. Hemostasis was quickly achieved. Next the cystic duct was dissected out circumferentially. The lower third of the gallbladder was removed off the undersurface of the liver. In doing so I was able to identify a critical view of safety. Cholangiograms were then performed by placing a 10 mm clip on the gallbladder side the cystic duct. A small ductotomy was made just below the clip there was positive return of bile. The cholangiogram catheter was then threaded down the aperture and the duct. Cholangiograms were then performed using Omnipaque. This showed good opacification of the biliary tree without any obvious filling defects. The gallbladder was then bovied off the undersurface of the liver. Once free was placed into a bag and brought out through the 12 mm trocar site. The trocar was then replaced. The liver bed was examined. Hemostasis was excellent. The right upper quadrant was irrigated with a liter of saline. This was clear. The fascia at the trocar site was closed using 0 PDS with the aid of the fascial closure device. The remaining trocars were opened up and insufflation was allowed to escape. These trocars were removed. A total of 20 cc of local anesthetic was injected into the incisions . The incisions were then closed with 4-0 Vicryl. Skin glue was applied as dressing. He was awakened from anesthesia and taken to recovery in good condition A EDGE BASTER was utilized as a biology research assistant. Her role included retraction of the gallbladder as well as assistance with skin closure . Surgical Findings: Normal cholangiograms Complications Complications: No Admit VTE Documentation VTE Present on Admission: No VTE Mechan Device Prophylaxis: SCD's VTE Pharm Prophylaxis ordered?: No Reason prophylaxis not ordered: Treatment Not Indicated
[2024-12-27] MEDS: Ipratropium/Albuterol Sulfate 3 ML AMPUL.NEB INHALATION (16:55)
[2024-12-27] MEDS: HYDROcodone Bitartrate/Apap 5/325 Tablet PO (18:07)
--- NOTE | 2024-12-27 18:19 | RAD_ITS ---
PROCEDURE: CHEST 1 VIEW (PORTABLE) REASON FOR EXAM: Postop hypoxia TECHNIQUE: Frontal and lateral views of the chest. COMPARISON: 03/10/2021 FINDINGS: Right IJ chest port with tip in the SVC. The heart size is normal. The mediastinal contour is unremarkable. The lungs are clear. The bones are unremarkable. RAD/Chest 1 View (Portable) IMPRESSION: No radiographic evidence of acute cardiopulmonary disease Reading Location: [facility]
== END 2024-12-27 19:06 | disposition home or self-care (01) ==
LOC: SDC 12:11 → AC 12:12
PROVIDERS: PCP Physician Assistant Medical; Referring Provider Surgery; Visit Provider Surgery
PROC: (CPT 47610; principal; 2024-12-27 12:40)
DX: K80.10 Calculus of gallbladder with chronic cholecystitis without obstruction (principal); K82.8 Other specified diseases of gallbladder; I10 Essential (primary) hypertension; K66.0 Peritoneal adhesions (postprocedural) (postinfection); Z90.49 Acquired absence of other specified parts of digestive tract; Z87.891 Personal history of nicotine dependence
CPT/HCPCS: 47563; 00790; 71045; 74300; 76000; 88304; 93005; 94640; C1769; J2405

== ENCOUNTER 2025-02-23 18:32 | Observation (INO) | payer BC, MEDICARE, SELFPAY ==
[2025-02-23] VITALS (7 sets, daily range): BP systolic 138–180; BP diastolic 88–105; PULSE 72–96; RESP 16–19; TEMP 36.5–36.8; O2SAT 92–96; BMI 21.2; BMI 21.1
--- NOTE | 2025-02-23 18:48 | CT_ITS ---
PROCEDURE: ABDOMEN/PELVIS W IV CONT ONLY 02/23/2025 REASON FOR EXAM: ABDOMINAL PAIN TECHNIQUE: Abdomen and pelvis CT with intravenous contrast. Coronal and Sagittal reconstruction series were provided. PATIENT PREPARATION: Per protocol ORAL CONTRAST TYPE: None. CONTRAST: Isovue 370 VOLUME: 100 mL One or more dose reduction techniques were used (e.g., Automated exposure control, adjustment of the mA and/or kV according to patient size, use of iterative reconstruction technique. RADIATION DOSE SUMMARY: CTDlvol: 27 mGy DLP: 500 mGycm COMPARISON: Cholangiogram 12/27/2024, CT abdomen pelvis 02/24/2024. FINDINGS: Lung bases: Bibasilar atelectasis/scarring. The heart is normal in size. Liver: The liver is normal in size without focal hepatic mass. The major portal veins are patent. Minimal intrahepatic biliary ductal dilation. Gallbladder: Prior cholecystectomy. Spleen: Normal size. Pancreas: Unremarkable. Adrenals: No adrenal mass. Kidneys: No hydronephrosis or nephrolithiasis. Bladder: Mildly distended and unremarkable. Reproductive Organs: Dystrophic calcifications within the prostate gland. Bowel: Prior surgical resection and anastomosis of the sigmoid colon. Closed loop obstruction of the distal small bowel with proximal transition point within the right upper quadrant (series 2, image 36) in the distal transition point within the left mid/lower quadrant (coronal image 47). The small bowel measures up to 5.6 cm (series 2, image 55), with air-fluid levels and wall edema and enhancement. No ascites. No pneumoperitoneum. Normal appendix. Lymph nodes: No suspicious lymphadenopathy. Vasculature: Moderate mixed plaque of the aortoiliac vessels. Bones: Thoracolumbar spondylosis. Unchanged small sclerosis of the right iliac bone, likely a bone island. CT/Abdomen/Pelvis W IV Cont ONLY IMPRESSION: Close loop obstruction of the distal small bowel with transition points as desc ribed above. No ascites or perforation. Dr. Canseco discussed findings with Willian Rivas at 7:52 pm on 02/23/25. Reading Location: [facility]
--- NOTE | 2025-02-23 18:55 | EDS_ITS ---
HPI <MOISÉS Hernandez - Last Filed: 02/23/25 20:37> History of Present Illness Chief Complaint: Abd Pain Narrative Narrative: 69-year-old male with PMH of colon cancer s/p resection and chemotherapy in 2018/2018, multiple hernia repairs, and cholecystectomy presents with abdominal pain. He had a laparoscopic cholecystectomy on 12/27/[address] Simms. He states prior to surgery and postsurgery he has had generalized abdominal pain, gurgling and nausea. His symptoms seem improved directly after surgery but never fully went away and have worsened over the last few days. About 2 weeks ago he followed up with Dr. Simms and was told to take half a cap of MiraLAX daily which has regulated his bowel movements to every 1 to 2 days but has not helped these other symptoms. He has decreased appetite and nausea but no vomiting. He can tolerate oral intake. He had a bowel movement yesterday and is passing gas. No fever or chills. No chest pain or shortness of breath. 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 Neuropathy Right hip pain Chemotherapy management, encounter for Admission for fitting of Port-A-Cath Adjustment and management of vascular access device Educational circumstance Colon adenocarcinoma Mass of right forearm Colon cancer Home Medications ?Medication ?Instructions ?Recorded ?Last Taken ?Type NK 02/23/25 Unknown History Allergy/AdvReac Type Severity Reaction Status Date / Time No Known Allergies Allergy Verified 02/23/25 18:33 Family History Mother Diabetes Uncle Aneurysm Heart disease Father Hypertension Myocardial infarction Heart disease Skin cancer Brother Cancer Testicular Surgical History S/P cholecystectomy Hx of colonoscopy with polypectomy H/O hernia repair History of tonsillectomy History of colon resection Social History Smoking Status: Former smoker second hand exposure: No alcohol intake: never substance use type: does not use caffeine: Yes what type of physical activity do you participate in: walking frequency: daily seatbelt use: always ROS <MOISÉS Hernandez - Last Filed: 02/23/25 20:37> ROS ED ROS Narrative Constitutional: Negative for fever, chills, malaise. GI: Positive for abdominal pain, nausea. Negative for vomiting, diarrhea, melena, hematochezia. : Negative for dysuria, hematuria or frequency. EXAM <MOISÉS Hernandez - Last Filed: 02/23/25 20:37> Physical Exam Narrative Exam Narrative: CONST: Patient sitting in no acute distress. EYES: Normal inspection. NECK: Normal inspection. RESP: No respiratory distress, CTAB. CVS: Regular rate and rhythm, no murmur, no gallop. ABD: Soft with generalized tenderness maximal in the RLQ, mildly distended, no guarding or rebound. SKIN: Color normal, no rash, warm, dry, intact. EXTREMITIES: Normal appearance, no pedal edema. NEURO: Alert and answering questions appropriately. PSYCH: Normal affect. Const Vital Signs: 02/23/25 18:33 02/23/25 18:36 Temperature 98.3 F 98.3 F Temperature Source Oral Oral Pulse Rate 96 84 Respiratory Rate 19 H 16 Blood Pressure 173/102 H 158/105 H Blood Pressure Mean 125 122 Pulse Ox 96 96 Oxygen Delivery Method Room Air Room Air <Dr. Elmer Hilton MD - Last Filed: 02/23/25 20:24> Physical Exam Const Vital Signs: 02/23/25 18:33 02/23/25 18:36 Temperature 98.3 F 98.3 F Temperature Source Oral Oral Pulse Rate 96 84 Respiratory Rate 19 H 16 Blood Pressure 173/102 H 158/105 H Blood Pressure Mean 125 122 Pulse Ox 96 96 Oxygen Delivery Method Room Air Room Air MDM <MOISÉS Hernandez - Last Filed: 02/23/25 20:37> MDM MDM Narrative Medical decision making narrative: Consults: General surgery Differential includes but not limited to ileus, SBO, constipation, appendicitis 69-year-old male presents with 1-2 months of nausea and abdominal pain since his laparoscopic cholecystectomy on 12/27/2024. Symptoms seem worse over the last few days. He is not vomiting and is having bowel movements. He appears well and nontoxic. Vital signs stable. He has right-sided abdominal tenderness and mild distention but no peritoneal signs. Labs overall are unremarkable. CT shows a closed-loop obstruction of the distal small bowel. I discussed the case with Dr. Simms. He states even though the patient is vomiting he recommended an NG tube since there is a close loop of bowel and he was admitted under general surgery. Lab Data Attestation: I reviewed the patient's lab results. Labs: Laboratory Results - last 24 hr 02/23/25 18:50 WBC 8.3 RBC 4.50 L Hgb 14.6 Hct 40.7 MCV 90.4 MCH 32.4 H MCHC 35.9 RDW Std Deviation 41.7 RDW Coeff of Debo 12.8 Plt Count 311 MPV 9.5 Immature Gran % (Auto) 0.400 Neut % (Auto) 64.2 Lymph % (Auto) 25.3 [place] % (Auto) 8.7 Eos % (Auto) 1.0 Baso % (Auto) 0.4 Absolute Neuts (auto) 5.4 Absolute Lymphs (auto) 2.10 Nucleated RBC % 0 Sodium 135 Potassium 4.2 Chloride 98 Carbon Dioxide 25.0 Anion Gap 12 BUN 20 H Creatinine 0.96 Estim Creat Clear Calc 64.21 Est GFR (MDRD) Non-Af 86 BUN/Creatinine Ratio 20.4 H Glucose 97 Calcium 9.1 Total Bilirubin 0.65 AST 18 ALT 13 Alkaline Phosphatase 129 Total Protein 7.0 Albumin 3.9 Globulin 3.1 Albumin/Globulin Ratio 1.3 Radiography Diagnostic Testing: Clinical Impression(s) from Imaging Studies Abdomen/Pelvis CT 02/23/25 18:48 IMPRESSION: Close loop obstruction of the distal small bowel with transition points as described above. No ascites or perforation. Dr. Canseco discussed findings with Willian Rivas at 7:52 pm on 02/23/25. Reading Location: [facility] <Dr. Elmer Hilton MD - Last Filed: 02/23/25 20:24> [facility] Lab Data Labs: Laboratory Results - last 24 hr 02/23/25 18:50 WBC 8.3 RBC 4.50 L Hgb 14.6 Hct 40.7 MCV 90.4 MCH 32.4 H MCHC 35.9 RDW Std Deviation 41.7 RDW Coeff of Debo 12.8 Plt Count 311 MPV 9.5 Immature Gran % (Auto) 0.400 Neut % (Auto) 64.2 Lymph % (Auto) 25.3 [place] % (Auto) 8.7 Eos % (Auto) 1.0 Baso % (Auto) 0.4 Absolute Neuts (auto) 5.4 Absolute Lymphs (auto) 2.10 Nucleated RBC % 0 Sodium 135 Potassium 4.2 Chloride 98 Carbon Dioxide 25.0 Anion Gap 12 BUN 20 H Creatinine 0.96 Estim Creat Clear Calc 64.21 Est GFR (MDRD) Non-Af 86 BUN/Creatinine Ratio 20.4 H Glucose 97 Calcium 9.1 Total Bilirubin 0.65 AST 18 ALT 13 Alkaline Phosphatase 129 Total Protein 7.0 Albumin 3.9 Globulin 3.1 Albumin/Globulin Ratio 1.3 Radiography Diagnostic Testing: Clinical Impression(s) from Imaging Studies Abdomen/Pelvis CT 02/23/25 18:48 IMPRESSION: Close loop obstruction of the distal small bowel with transition points as described above. No ascites or perforation. Dr. Canseco discussed findings with Willian Rivas at 7:52 pm on 02/23/25. 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 I performed a substantive portion of the visit including all aspects of the following. My cifuentes findings include: History is about 1.5 months of persistent lower abdominal pain that is worse on the right since his cholecystectomy, this is a different pain than he had before the cholecystectomy which is more upper abdominal pain. He is having bowel movements. He is eating very little his appetite is extremely poor, so his bowel movements are less than usual but he was in every other or every third day bowel movement prior to the surgery and that has not changed significantly. No problems urinating. Rare vomiting no hematemesis. Exam is tender throughout the lower abdomen worse on the right. Hyperactive bowel sounds. Mild right upper quadrant and epigastric tenderness. No guarding or rebound. No significant distention. NAD. Medical Decison Making labs and CT reasonable, patient has history of a lot of scar tissue from prior partial colectomy from cancer. I reviewed the CT images as well as the report which I agree with, it is consistent with a closed loop obstruction of distal small bowel. Therefore we discussed with surgery, NG will be placed down here and he will be admitted. Other additions or changes: [None] Discharge Plan Dx/Rx/DC Orders Clinical Impression: Complete small bowel obstruction Disposition Disposition: Acute Care Hospital [facility]
[2025-02-23] MEDS: 0.9% Normal Saline (1000mL) 1,000 ML 999 ML IV (18:56)
[2025-02-23] MEDS: Morphine 4 MG/ML Syringe IV (18:57)
[2025-02-23] MEDS: Ondansetron 4 MG/2 ML Vial IV (18:58)
[2025-02-23 19:10] LABS: Absolute Neutrophil Count 5.4 X10^3/uL (2.0-7.7); Basophil# 0.03 X10^3/uL; Basophil% 0.4 % (0-1); Eosinophil# 0.08 X10^3/uL; Hematocrit 40.7 % (40-54); Hemoglobin 14.6 g/dL (13.0-16.5); Lymphocyte % 25.3 % (19-41); Mean Corp Hgb Conc 35.9 g/dL (32-36); Mean Corpuscular Hgb 32.4 pg (27.0-32.0); Mean Corpuscular Volume 90.4 fL (80-94); Mean Platelet Vol. 9.5 fl (6.2-12.0); Monocyte# 0.72 X10^3/uL; Monocyte% 8.7 % (0-10); NRBC Flagged by Analyzer 0 % (0-5); Neutrophil # 5.35 X10^3/uL (2.7-7.7); Neutrophil % 64.2 % (47-70); Platelet Count 311 K/mm3 (150-450); RBC Distribution Width CV 12.8 % (11.6-14.6); RBC Distribution Width SD 41.7 fl (35.1-43.9); White Blood Count 8.3 K/mm3 (4.4-11.0)
[2025-02-23 19:21] LABS: ALB/GLOB Ratio 1.3 RATIO (0.9-2.4); AST(SGOT) 18 U/L (<=37); Alanine Aminotransfer ALT/SGPT 13 U/L (<=46); Albumin, Serum 3.9 g/dL (3.4-4.8); Alkaline Phosphatase 129 U/L (40-129); Anion Gap 12 (5-15); BUN 20 mg/dL (4-19); BUN/Creat Ratio 20.4 RATIO (10-20); Calcium,Total 9.1 mg/dL (7.6-11.0); Chloride 98 mmol/L (98-108); Creatinine, Serum 0.96 mg/dL (0.70-1.20); EST Glomerular Filtration Rate 86 (>60); Estimated Creatinine Clearance 64.21 ml/min (50-250); Globulin 3.1 g/dL (2.2-4.2); Glucose 97 mg/dL (70-99); Potassium 4.2 mmol/L (3.3-5.1); Sodium Level 135 mmol/L (133-145); Total Bilirubin 0.65 mg/dL (0.00-1.30)
--- NOTE | 2025-02-23 20:20 | PCM.HP.STD ---
HPI - General General Date of Admission: 02/23/25 Date of Service: 02/23/25 Chief Complaint: Abdominal pain, distention, nausea. 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 Neuropathy Right hip pain Chemotherapy management, encounter for Admission for fitting of Port-A-Cath Adjustment and management of vascular access device Educational circumstance Colon adenocarcinoma Mass of right forearm Colon cancer Home Medications ?Medication ?Instructions ?Recorded ?Last Taken ?Type NK 02/23/25 Unknown History Allergy/AdvReac Type Severity Reaction Status Date / Time No Known Allergies Allergy Verified 02/23/25 18:33 Family History Mother Diabetes Uncle Aneurysm Heart disease Father Hypertension Myocardial infarction Heart disease Skin cancer Brother Cancer Testicular Surgical History S/P cholecystectomy Hx of colonoscopy with polypectomy H/O hernia repair History of tonsillectomy History of colon resection Social History Smoking Status: Former smoker second hand exposure: No alcohol intake: never substance use type: does not use caffeine: Yes what type of physical activity do you participate in: walking frequency: daily seatbelt use: always Vital Signs Vital Signs Vital Signs: 02/23/25 18:33 02/23/25 18:36 Temperature 98.3 F 98.3 F Temperature Source Oral Oral Pulse Rate 96 84 Respiratory Rate 19 H 16 Blood Pressure 173/102 H 158/105 H Blood Pressure Mean 125 122 Pulse Ox 96 96 Oxygen Delivery Method Room Air Room Air Weight Weight: 135 lb 14.4 oz Body Mass Index (BMI) 21.2 Results Lab / Micro Data 02/23/25 18:50 02/23/25 18:50 Labs: Laboratory Results - last 24 hr 02/23/25 18:50: WBC 8.3, RBC 4.50 L, Hgb 14.6, Hct 40.7, MCV 90.4, MCH 32.4 H, MCHC 35.9, RDW Std Deviation 41.7, RDW Coeff of Debo 12.8, Plt Count 311, MPV 9.5, Immature Gran % (Auto) 0.400, Neut % (Auto) 64.2, Lymph % (Auto) 25.3, [place] % (Auto) 8.7, Eos % (Auto) 1.0, Baso % (Auto) 0.4, Absolute Neuts (auto) 5.4, Absolute Lymphs (auto) 2.10, Nucleated RBC % 0, Sodium 135, Potassium 4.2, Chloride 98, Carbon Dioxide 25.0, Anion Gap 12, BUN 20 H, Creatinine 0.96, Estim Creat Clear Calc 64.21, Est GFR (MDRD) Non-Af 86, BUN/Creatinine Ratio 20.4 H, Glucose 97, Calcium 9.1, Total Bilirubin 0.65, AST 18, ALT 13, Alkaline Phosphatase 129, Total Protein 7.0, Albumin 3.9, Globulin 3.1, Albumin/Globulin Ratio 1.3 Imaging Radiology Impression Abdomen/Pelvis CT 02/23/25 18:48 IMPRESSION: Close loop obstruction of the distal small bowel with transition points as described above. No ascites or perforation. Dr. Canseco discussed findings with Willian Rivas at 7:52 pm on 02/23/25. Reading Location: [facility]
[2025-02-23] MEDS: Oxymetazoline 0.05% 1 SPRAY SPRAY.BTL 2 SPRAY NASAL (20:59)
--- NOTE | 2025-02-23 21:10 | RAD_ITS ---
PROCEDURE: ABDOMEN SINGLE VIEW (PORTABLE) 02/23/2025 REASON FOR EXAM: NG INSERTION TECHNIQUE: Single view abdomen. COMPARISON: CT abdomen and pelvis 02/23/2025 FINDINGS: Bowel gas: Multiple dilated small bowel loops within the imaged upper abdomen. Feeding tube is noted with the side port below the diaphragm and the tip in the proximal gastric body. Calcifications: Cholecystectomy clips. Bones: The bones are unremarkable. Other: Right upper quadrant surgical clips suggest prior cholecystectomy. RAD/Abdomen Single View (Portable) IMPRESSION: Feeding tube in normal position. Findings compatible with known small-bowel ob struction. Reading Location: [facility]
--- NOTE | 2025-02-23 21:47 | HP.PCM_ITS ---
HPI - General General Date of Admission: 02/23/25 Date of Service: 02/23/25 Chief Complaint: Abdominal pain and distention HPI Narrative YUDLEKA MOBLEY, is a 69 M who presented to the emergency department here at [facility] this evening with complaints of abdominal pain and distention along with nausea. Patient does have a history of colon cancer status post a colon resection and chemotherapy back in 2018. He is also had a previous bilateral inguinal and umbilical hernia repair prior to his open sigmoid colectomy. I had actually seen the patient several months ago with right upper quadrant pains. I felt that this could be gallbladder related and recommended a cholecystectomy. This was performed and he noticed some improvement however he has continued to have similar symptoms even since surgery. He states that yesterday he began having some increase in abdominal pain mostly on the right side of his abdomen. He has also noted some abdominal distention. He states that distention is about 25% more than normal. He currently rates his pain at about a 4-5 out of 10. On arrival he states his pain was maybe a 7. He states the pain has been pretty much constant between yesterday and today. He states that he did have some diarrhea this morning. He denies flatus today but did pass some flatus yesterday. He was seen and evaluated by the ER staff this evening. He underwent battery of laboratory testing which revealed a normal white blood cell count. CT scan was performed and showed dilated loops of small bowel with 2 potential transition points. Radiologist read this as a possible closed-loop obstruction although the points of transition seem quite far apart for a closed-loop obstruction. I saw the patient in the emergency department and overall he seemed pretty comfortable. An NG tube was just placed. He denies any recent vomiting. No nausea at the present time. [facility] Medical History (Updated 02/23/25 @ 21:[address] 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 Neuropathy Right hip pain Chemotherapy management, encounter for Admission for fitting of Port-A-Cath Adjustment and management of vascular access device Educational circumstance Colon adenocarcinoma Mass of right forearm Colon cancer Home Medications ?Medication ?Instructions ?Recorded ?Last Taken ?Type NK 02/23/25 Unknown History Allergy/AdvReac Type Severity Reaction Status Date / Time No Known Allergies Allergy Verified 02/23/25 18:33 Family History Mother Diabetes Uncle Aneurysm Heart disease Father Hypertension Myocardial infarction Heart disease Skin cancer Brother Cancer Testicular Surgical History S/P cholecystectomy Hx of colonoscopy with polypectomy H/O hernia repair History of tonsillectomy History of colon resection Social History Smoking Status: Former smoker second hand exposure: No alcohol intake: never substance use type: does not use caffeine: Yes what type of physical activity do you participate in: walking frequency: daily seatbelt use: always ROS Constitutional Constitutional: Reports systems reviewed and no addt'l complaints, except as documented Eyes Eyes: Reports systems reviewed and no addt'l complaints, except as documented ENT HEENT: Reports systems reviewed and no addt'l complaints, except as documented Cardiovascular Cardiovascular: Reports systems reviewed and no addt'l complaints, except as documented Respiratory/Chest Respiratory/Chest: Reports systems reviewed and no addt'l complaints, except as documented Gastrointestinal Gastrointestinal: Reports systems reviewed and no addt'l complaints, except as documented Genitourinary Genitourinary: Reports systems reviewed and no addt'l complaints, except as documented Vital Signs Vital Signs Vital Signs: 02/23/25 18:33 02/23/25 18:36 02/23/25 19:36 Temperature 98.3 F 98.3 F 98.3 F Temperature Source Oral Oral Oral Pulse Rate 96 84 79 Respiratory Rate 19 H 16 18 Blood Pressure 173/102 H 158/105 H 159/88 H Blood Pressure Mean 125 122 111 Pulse Ox 96 96 95 Oxygen Delivery Method Room Air Room Air Room Air 02/23/25 20:00 02/23/25 21:00 02/23/25 21:06 Temperature 97.8 F 97.8 F 97.8 F Temperature Source Oral Oral Pulse Rate 72 72 72 Respiratory Rate 18 18 18 Blood Pressure 180/95 H 138/88 H 138/88 H Blood Pressure Mean 123 104 104 Pulse Ox 94 93 93 Oxygen Delivery Method Room Air Room Air Weight Weight: 135 lb 14.4 oz Body Mass Index (BMI) 21.2 Physical Exam Narrative The patient is alert and oriented x 3. He does not appear to be in any acute distress. He does not appear toxic or grossly ill appearing. Pupils are equal round and reactive to light NG tube is in place. Abdomen is slightly distended. There is mild to moderate right-sided abdominal pain. There is no indication to suggest acute surgical abdomen at the present. Overall he appears quite comfortable. No rebound or guarding. He does have very loud and audible bowel sounds.. Results Medical Records Data Attestation: I reviewed the patient's medical records Lab / Micro Data Attestation: I reviewed the patient's lab results. 02/23/25 18:50 02/23/25 18:50 Labs: Laboratory Results - last 24 hr 02/23/25 18:50: WBC 8.3, RBC 4.50 L, Hgb 14.6, Hct 40.7, MCV 90.4, MCH 32.4 H, MCHC 35.9, RDW Std Deviation 41.7, RDW Coeff of Debo 12.8, Plt Count 311, MPV 9.5, Immature Gran % (Auto) 0.400, Neut % (Auto) 64.2, Lymph % (Auto) 25.3, Payette % (Auto) 8.7, Eos % (Auto) 1.0, Baso % (Auto) 0.4, Absolute Neuts (auto) 5.4, Absolute Lymphs (auto) 2.10, Nucleated RBC % 0, Sodium 135, Potassium 4.2, Chloride 98, Carbon Dioxide 25.0, Anion Gap 12, BUN 20 H, Creatinine 0.96, Estim Creat Clear Calc 64.21, Est GFR (MDRD) Non-Af 86, BUN/Creatinine Ratio 20.4 H, Glucose 97, Calcium 9.1, Total Bilirubin 0.65, AST 18, ALT 13, Alkaline Phosphatase 129, Total Protein 7.0, Albumin 3.9, Globulin 3.1, Albumin/Globulin Ratio 1.3 Imaging Radiology Impression Abdomen/Pelvis CT 02/23/25 18:48 IMPRESSION: Close loop obstruction of the distal small bowel with transition points as described above. No ascites or perforation. Dr. Canseco discussed findings with Willian Rivas at 7:52 pm on 02/23/25. Reading Location: [id number] Assessment & Plan Assessment/Plan (1) Small bowel obstruction due to adhesions: PLAN: Plan The patient is a 69-year-old male with multiple abdominal surgeries who presents with abdominal pain with distention. He has had some GI issues and complaints for the last several months however these seem to have gradually worsened over the last 2 days. He presented to the emergency room this evening as his symptoms were not improving but not necessarily worsening. Workup revealed normal labs however CT scan was consistent with a small bowel obstruction. There was concern for possible closed-loop obstruction by the radiologist reading. Clinically, he is tender however he appears clinically stable and does not appear to be grossly ill-appearing. In fact, for a closed-loop bowel obstruction, he actually appears quite comfortable. I stated that we typically have a much lower threshold to operate on a closed-loop obstruction when identified. We discussed options of operating this evening versus at least observing overnight. We discussed the pros and cons of each option. We have mutually decided that and may be worthwhile hydrating him overnight and allowing NG tube to decompress his small bowel in hopes that his bowel obstruction may resolve. My plan is to reevaluate him with an abdominal x-ray as well as exam early tomorrow morning and if his symptoms have not resolved, I suspect surgical intervention will be in order especially given the chronic nature of his GI symptoms. He is agreeable to this plan. Will reevaluate again in the morning. I told him to notify his nurse overnight should any worsening of abdominal pain occur. Charges/Coding Visit Charges Inpatient E&M: 88436 Init Hosp L3
[2025-02-23] MEDS: Dextrose 5%/0.9% NaCl 1,000 ML 110 ML IV (22:21)
[2025-02-23] MEDS: 0.9% Saline Lock 10 ML Syringe IV (22:21)
[2025-02-24 04:22] VITALS: BP 145/86; PULSE 75; RESP 18; TEMP 36.6
--- NOTE | 2025-02-24 05:30 | RAD_ITS ---
PROCEDURE: ABD INC DECUB AND/OR ERECT 02/24/2025 REASON FOR EXAM: SBO TECHNIQUE: Single upright view and 2 supine images to include the entire abdomen and pelvis, 3 total images COMPARISON: 02/23/2025 FINDINGS: No free air identified. Visualized lung bases appear clear. Nasogastric tube with the fundus of the stomach again seen with side port now at the area of the GE junction. Status post cholecystectomy. Dilated loops of small bowel in the central abdomen containing several air-fluid levels consistent with history of small-bowel obstruction. There is note of gaseous prominence of colonic segments. Excreted contrast material is seen within a nondistended bladder. Multilevel lumbar spondylosis/discogenic change. RAD/Abd Inc Decub and/or Erect IMPRESSION: No free air identified. Nasogastric tube with the fundus of the stomach again seen with side port now a t the area of the GE junction. Dilated loops of small bowel in the central abdomen containing several air-flui d levels consistent with history of small-bowel obstruction. There is note of gaseous prominence of colonic segments. Reading Location: [id number]
[2025-02-24] MEDS: Dextrose 5%/0.9% NaCl 1,000 ML 110 ML IV ×2 (06:40→18:01)
[2025-02-24 06:42] LABS: Absolute Lymphocyte Count 1.45 X10^3/uL (0.83-4.51); Absolute Neutrophil Count 3.6 X10^3/uL (2.0-7.7); Basophil# 0.02 X10^3/uL; Basophil% 0.3 % (0-1); Eosinophil# 0.07 X10^3/uL; Eosinophils% 1.2 % (0-5); Hematocrit 40.1 % (40-54); Hemoglobin 13.7 g/dL (13.0-16.5); Lymphocyte # 1.45 X10^3/ul (0.83-4.51); Lymphocyte % 25.3 % (19-41); Mean Corp Hgb Conc 34.2 g/dL (32-36); Mean Corpuscular Hgb 31.9 pg (27.0-32.0); Mean Corpuscular Volume 93.5 fL (80-94); Mean Platelet Vol. 9.3 fl (6.2-12.0); Monocyte% 10.5 % (0-10); NRBC Flagged by Analyzer 0 % (0-5); Neutrophil # 3.58 X10^3/uL (2.7-7.7); Neutrophil % 62.5 % (47-70); Platelet Count 283 K/mm3 (150-450); RBC Distribution Width SD 43.8 fl (35.1-43.9); Red Blood Count 4.29 M/mm3 (4.6-6.2); White Blood Count 5.7 K/mm3 (4.4-11.0)
[2025-02-24 07:08] LABS: Anion Gap 10 (5-15); BUN 14 mg/dL (4-19); BUN/Creat Ratio 15.9 RATIO (10-20); Calcium,Total 8.2 mg/dL (7.6-11.0); Carbon Dioxide 26.1 mmol/L (21.0-32.0); Chloride 103 mmol/L (98-108); Creatinine, Serum 0.85 mg/dL (0.70-1.20); EST Glomerular Filtration Rate 95 (>60); Glucose 106 mg/dL (70-99); Potassium 4.1 mmol/L (3.3-5.1); Sodium Level 139 mmol/L (133-145)
--- NOTE | 2025-02-24 08:29 | PN.SURG_ITS ---
Subjective Subjective Patient seen and evaluated on morning rounds. Patient states immediately that he is feeling much better this morning compared to last night. He states that he did pass flatus this morning. He states that he felt much better around 3 or 4 AM this morning. NG tube only putting out about 200 to 250 cc. Morning x- rays showing air-fluid levels however there is no prominence of gas within the colon. Patient states his abdominal distention as well as pain is significantly less this morning. He does admit to some soreness in the right lower quadrant still but again this seems to be improved Objective Data Objective Data Vital Signs: Vital Signs Temp Pulse Resp BP Pulse Ox O2 Del Method O2 Flow Rate 97.8 F 75 18 145/86 H 92 Room Air 92 02/24/25 04:22 02/24/25 04:22 02/24/25 04:22 02/24/25 04:22 02/23/25 22:26 02/23/25 22:48 02/24/25 04:22 Oxygen Flow Rate (L/min) 92 Oxygen Delivery Method Room Air Weight: 134 lb 14.766 oz Body Mass Index (BMI) 21.1 Intake & Output: Intake and Output for Last 24 Hours 02/22/25 02/23/25 02/24/25 23:59 23:59 23:59 Intake Total 1100 / 1100 1014.83 / 1014.83 Output Total 50 / 50 200 / 200 Balance 1050 / 1050 814.83 / 814.83 Lab / Micro Data 02/24/25 06:13 02/24/25 06:13 Labs: Laboratory Results - last 24 hr 02/23/25 18:50: WBC 8.3, RBC 4.50 L, Hgb 14.6, Hct 40.7, MCV 90.4, MCH 32.4 H, MCHC 35.9, RDW Std Deviation 41.7, RDW Coeff of Debo 12.8, Plt Count 311, MPV 9.5, Immature Gran % (Auto) 0.400, Neut % (Auto) 64.2, Lymph % (Auto) 25.3, Woodruff % (Auto) 8.7, Eos % (Auto) 1.0, Baso % (Auto) 0.4, Absolute Neuts (auto) 5.4, Absolute Lymphs (auto) 2.10, Nucleated RBC % 0, Sodium 135, Potassium 4.2, Chloride 98, Carbon Dioxide 25.0, Anion Gap 12, BUN 20 H, Creatinine 0.96, Estim Creat Clear Calc 64.21, Est GFR (MDRD) Non-Af 86, BUN/Creatinine Ratio 20.4 H, Glucose 97, Calcium 9.1, Total Bilirubin 0.65, AST 18, ALT 13, Alkaline Phosphatase 129, Total Protein 7.0, Albumin 3.9, Globulin 3.1, Albumin/Globulin Ratio 1.3 02/24/25 06:13: WBC 5.7, RBC 4.29 L, Hgb 13.7, Hct 40.1, MCV 93.5, MCH 31.9, MCHC 34.2, RDW Std Deviation 43.8, RDW Coeff of Debo 13.0, Plt Count 283, MPV 9.3, Immature Gran % (Auto) 0.200, Neut % (Auto) 62.5, Lymph % (Auto) 25.3, Woodruff % (Auto) 10.5 H, Eos % (Auto) 1.2, Baso % (Auto) 0.3, Absolute Neuts (auto) 3.6, Absolute Lymphs (auto) 1.45, Nucleated RBC % 0, Sodium 139, Potassium 4.1, Chloride 103, Carbon Dioxide 26.1, Anion Gap 10, BUN 14, Creatinine 0.85, Estim Creat Clear Calc 72.00, Est GFR (MDRD) Non-Af 95, BUN/Creatinine Ratio 15.9, G lucose 106 H, Calcium 8.2 Radiography Diagnostic Testing: Radiology Impression Abdomen/Pelvis CT 02/23/25 18:48 IMPRESSION: Close loop obstruction of the distal small bowel with transition points as described above. No ascites or perforation. Dr. Canseco discussed findings with Willian Rivas at 7:52 pm on 02/23/25. Reading Location: [id number] X-Ray 02/23/25 21:10 IMPRESSION: Feeding tube in normal position. Findings compatible with known small-bowel obstruction. Reading [facility] 02/24/25 05:30 IMPRESSION: No free air identified. Nasogastric tube with the fundus of the stomach again seen with side port now at the area of the GE junction. Dilated loops of small bowel in the central abdomen containing several air-fluid levels consistent with history of small-bowel obstruction. There is note of gaseous prominence of colonic segments. Reading Location: [facility] Physical Exam Narrative The patient is alert and oriented x 3. He is in no acute distress. He does not appear to be acutely ill-appearing NG tube in place. Abdomen is soft and mildly distended. Mild tenderness with deep palpation. Pain seems to be most noted in the right lower quadrant. The degree of pain with palpation is much less this morning compared to last night. Certainly there are no peritoneal signs/rebound/guarding. Assessment & Plan Assessment/Plan (1) Small bowel obstruction due to adhesions: PLAN: Plan The patient is a 69-year-old male with a history of multiple abdominal surgeries most notably a colon resection for colon cancer about 8 years ago. He did undergo chemotherapy. He presents with small bowel obstruction which clinically seems to be improving with conservative measures overnight. Initially I was concerned that he may require surgery although he is showing signs of improvement. Since he is improving, I am taking the liberty of ordering a small bowel follow-through today. I will continue to keep his NG tube in place and also continue n.p.o. and IV fluids. Patient did have a colonoscopy last year that showed polyps but no evidence of recurrent malignancy. I did note however that his CEA has been slowly increasing. Most recent CEA was 9.5. He does follow with oncology and apparently has an appointment coming up in the next week or 2. Previous scans have been negative for any evidence of recurrent disease. I presume is bowel obstruction is likely related to adhesions however other possibilities need to be considered given his history. I feel that the small bowel follow-through could be both diagnostic and therapeutic. Will await results. All questions and concerns were addressed. Patient is agreeable to this plan. Charges/Coding Visit Charges Inpatient E&M: 47543 Subs Hosp L3
--- NOTE | 2025-02-24 08:50 | RAD_ITS ---
EXAM: Small-bowel follow-through CLINICAL HISTORY: Abdominal pain TECHNIQUE: Barium was instilled through the existing nasogastric tube and multiple images were obtained over time. FINDINGS: The immediate image demonstrates opacification of the stomach and proximal jejunum. The 2 hour image demonstrates opacification of the majority of the jejunum. A 6 hour image demonstrates opacification of the ileum and ascending colon without evidence of small-bowel obstruction. RAD/Small Bowel Series Only IMPRESSION: No small bowel obstruction. Reading Location: [id number]
[2025-02-24 10:06] VITALS: BP 155/86; PULSE 74; RESP 18; TEMP 36.5; O2SAT 93
--- NOTE | 2025-02-24 10:55 | CASEMGMT ---
RN CM Face to Face with patient for initial transition planning/care coordination assessment. RN CM introduced self and role at [facility]. Patient lying in bed, alert and oriented. Patient willing to participate in assessment and is able to answer all questions appropriately. Care providers, pharmacy, and demographics verified. Strata: 2 PCP: Irene CURIEL Specialists: Chanel, oncologist; Mendez, surgeon Preferred Pharmacy: [facility] Insurance: Za[facility] Prescription Benefit: yes Living Will/HPOA: none LNOK: Living Arrangements: Patient lives with in a 2 story home. Patient is independent and able to ambulate stairs. Transportation: self, DME/HHC: Patient has walker at home. No previous HHC or SNF. Patient wishes to discharge home, denies need for home health at this time. Patient states he has no further needs or concerns at this time. CM to follow for discharge planning needs that may arise. Disposition Plan: Patient to discharge home with family support and follow-up plans in place. Shell TOBIAS, RN, CM
[2025-02-24 15:37] VITALS: BP 149/93; PULSE 85; RESP 16; TEMP 36.8; O2SAT 92
--- NOTE | 2025-02-24 16:05 | PCM.PN.BLA ---
Progress Note patient tolerated SBFT well and this is not showing SBO at this time. Patient with several liquid stools today and continues to do well. Will NARA ABDULLAHI amd do a trial of clears liquid diet
[2025-02-24 20:32] VITALS: BP 137/82; PULSE 78; RESP 15; TEMP 36.7; O2SAT 94
[2025-02-25] VITALS (7 sets, daily range): BP systolic 113–142; BP diastolic 61–86; PULSE 67–75; RESP 15–18; TEMP 36.6–37.1; O2SAT 93–97
[2025-02-25] MEDS: Dextrose 5%/0.9% NaCl 1,000 ML 110 ML IV (03:02)
--- NOTE | 2025-02-25 10:11 | PCM.PN.SRG ---
Subjective Subjective Patient continuing to improve. He states that he has had about 4 soft/liquid stools since about 3 or 4 AM this morning. He admits to passing a normal amount of flatus. NG tube was removed late yesterday and he was placed on clear liquid diet. He has been tolerating the clear liquid diet well. No abdominal pain or nausea with p.o. intake. Patient states he still seems a little bloated at times Objective Data Objective Data Vital Signs: Vital Signs Temp Pulse Resp BP Pulse Ox O2 Del Method O2 Flow Rate 98.0 F 72 17 127/73 H 95 Room Air 92 02/25/25 08:22 02/25/25 08:22 02/25/25 08:22 02/25/25 08:22 02/25/25 08:22 02/25/25 08:22 02/24/25 04:22 Oxygen Flow Rate (L/min) 92 Oxygen Delivery Method Room Air Weight: 134 lb 14.766 oz Body Mass Index (BMI) 21.1 Intake & Output: Intake and Output for Last 24 Hours 02/23/25 02/24/25 02/25/25 23:59 23:59 23:59 Intake Total 1100 / 1100 2414.83 / 2414.83 991.83 / 991.83 Output Total 50 / 50 400 / 400 Balance 1050 / 1050 991.83 / 991.83 Lab / Micro Data 02/24/25 06:13 02/24/25 06:13 Radiography Diagnostic Testing: Radiology Impression Small Bowel X-Ray 02/24/25 08:50 IMPRESSION: No small bowel obstruction. Reading Location: [id number] Physical Exam Narrative He is alert and oriented x 3. He is in no acute distress. He appears healthy Abdomen is soft and nontender. There may be a slight distention but this is minimal Assessment & Plan Assessment/Plan (1) Small bowel obstruction due to adhesions: PLAN: Plan The patient is a 69-year-old male admitted with small bowel obstruction likely secondary to adhesions from prior abdominal surgeries. Clinically he seems to be steadily improving. Small bowel follow-through yesterday did not show any evidence of obstruction. NG tube was removed yesterday and he has been tolerating a clear liquid diet. He is ambulating well. I am recommending advancing his diet to a full liquid diet. Tentative plan for discharge home tomorrow. He is agreeable to this plan. All questions and concerns were addressed
[2025-02-25] MEDS: 0.9% Saline Lock 10 ML Syringe IV (13:38)
[2025-02-26 04:00] VITALS: RESP 15
[2025-02-26 08:24] VITALS: BP 152/74; PULSE 71; RESP 18; TEMP 36.6; O2SAT 97
--- NOTE | 2025-02-26 08:40 | PCM.PN.SRG ---
Subjective Subjective Patient evaluated sitting comfortably in his bed. He denies any nausea, vomiting. He notes continuing to pass flatus and have bowel movements. He is tolerating full liquids. He denies any abdominal pain. Objective Data Objective Data Vital Signs: Vital Signs Temp Pulse Resp BP Pulse Ox O2 Del Method O2 Flow Rate 97.8 F 71 18 152/74 H 97 Room Air 92 02/26/25 08:24 02/26/25 08:24 02/26/25 08:24 02/26/25 08:24 02/26/25 08:24 02/26/25 08:24 02/24/25 04:22 Oxygen Flow Rate (L/min) 92 Oxygen Delivery Method Room Air Weight: 134 lb 14.766 oz Body Mass Index (BMI) 21.1 Intake & Output: Intake and Output for Last 24 Hours 02/24/25 02/25/25 02/26/25 23:59 23:59 23:59 Intake Total 2414.83 / 2414.83 3091.83 / 3091.83 Output Total 400 / 400 200 / 200 Balance / 2891.83 / 2891.83 Lab / Micro Data 02/24/25 06:13 02/24/25 06:13 Physical Exam GI GI Narrative: Abdomen- soft, nontender Assessment & Plan Assessment/Plan (1) Small bowel obstruction due to adhesions: PLAN: I am following this patient in conjunction with Dr. Simms. He will independently evaluate this patient. Increase to transitional diet Likely discharge later today on low fiber diet for 2 weeks We will continue to moniotr this patient Charges/Coding Visit Charges Inpatient E&M: 98283 [facility] Hosp L1
[2025-02-26 14:39] VITALS: BP 157/84; PULSE 69; RESP 18; TEMP 37.2; O2SAT 96
--- NOTE | 2025-02-26 14:43 | PCM.DC.SUM ---
Providers Date of Admission: 02/23/25 Primary Care Physician: MOISÉS Crowder Reason For Visit: SBO Diagnosis Discharge Diagnosis (1) Small bowel obstruction due to adhesions: Status: Acute Code(s): K56.50 - Intestinal adhesions [bands], unspecified as to partial versus complete obstruction Plan: I am following this patient in conjunction with Dr. Simms. He will independently evaluate this patient. Increase to transitional diet Likely discharge later today on low fiber diet for 2 weeks We will continue to moniotr this patient Medications at Discharge Home Medications NK 02/23/25 Hospital Course Summary of Care Provided Minutes Spent on Discharge: 35 Hospital Course: Patient is a 69 y/o M who presents with abdominal pain. CT scan of the ab/pel was obtained on 02/23 demonstrating a closed loop bowel obstruction with multiple transition points. NG tube was placed. Small bowel follow-through completed on 02/24 demonstrating no small bowel obstruction. He has been passing flatus and having bowel movements. His diet was advanced from clears to transitional diet. Patient tolerated transitional diet on the day of discharge. He denies any nausea, vomiting. Instructed patient to be discharged home on 2 week low fiber diet. He is instructed to follow-up with his family physician within 2 weeks. Weight / BMI Weight Weight: 134 lb 14.766 oz Body Mass Index (BMI) 21.1 ABG / Lab / Microbiology Data 02/24/25 06:13 02/24/25 06:13 D/C Instructions Discharge Diet: - (Low fiber) Discharge Activity: Return to Normal Activity and No Restrictions DC O2, CPAP, BIPAP Needs Home O2 Discharge instructions: No Please Follow Up With: Elizabeth Bonilla PA When: Follow-up within 2 weeks Meaningful Use Info Meaningful Use Meaningful Use Diagnoses (Choose all that apply): None applicable Ischemic Stroke Statin Dosing Therapy Reference: STATIN DOSE THERAPY REFERENCE: * Patients > 75 years receive moderate or high dose statin therapy. * Patients 75 years or YOUNGER should receive HIGH intensity statin dose unless contraindicated. You will be required to document reason for non-treatment if statin daily dose does not meet guidelines. HIGH DOSE STATIN THERAPY DAILY Atorvastatin > than or = to 40 mg Rosuvastatin > than or = to 20 mg Amlodipine + Atorvastatin > than or = to 2.5/40 mg Ezetimibe + Simvastatin 10/80 mg Simvastatin 80mg Discharge Plan Admission Admit Date/Time: 02/23/25 20:11 Primary Reason for Your Visit: Small bowel obstruction due to adhesions Attending Provider: Jass Simms Primary Care Provider: Elizabeth Bonilla Instructions Additional Instructions / Restrictions: What are low-fiber foods? If your doctor tells you to follow a low-fiber diet, here are low-fiber foods you can eat and higher-fiber foods you should avoid. Remember to always choose foods that you would normally eat. Do not try any foods that caused you discomfort or allergic reactions in the past. If you are on a ?low-residue diet,? your food choices are even more restricted than those listed below. Talk with your cancer care team or dietitian if you have questions about certain foods or amounts. Meat, fish, poultry, and protein Eat: Tender cuts of meat Ground meat Tofu Fish and shellfish Smooth peanut butter Eggs Bake, broil, or poach meats, and use mild seasonings. Try preparing meats as stews, roasts, meatloaves, casseroles, sandwiches, and soups using ingredients on the approved lists. Scramble, poach, or boil eggs; or make omelets, souffl?s, custard, puddings, and casseroles, using ingredients noted below. You might want to ask your doctor, nurse, or dietitian about other foods may be OK for you to eat, and find out when you can go back to your normal diet. Avoid: All beans, nuts, peas, lentils, and legumes Processed meats, hot dogs, sausage, and cold cuts Tough meats with gristle Dairy: Milk and cheese Eat: Only in small to medium amounts and only if they don?t cause problems for you Milk, chocolate milk, buttermilk, and milk drinks Yogurt without seeds or granola Sour cream Cheese Cottage cheese Custard or pudding Ice cream or frozen desserts (without nuts) Cream sauces, soups, and casseroles You can use these items in desserts, snacks, or breads. Bread, cereals, and grains Eat: White breads, waffles, Burkinan toast, plain white rolls, or white bread toast Pretzels Plain pasta or noodles White rice Crackers, zwieback, su, and matzoh (no cracked wheat or whole grains) Cereals without whole grains, added fiber, seeds, raisins, or other dried fruit Use white flour for baking and making sauces. Grains, such as white rice, Cream of Wheat, or grits, should be well-cooked. Include the above grains in casseroles, dumplings, souffl?s, cheese strata, kugels, and pudding. Avoid any food that contains: Brown or wild rice Whole grains, cracked grains, or whole wheat products Kasha (buckwheat) Cornbread or cornmeal Fernie crackers Bran Wheat germ Nuts Granola Coconut Dried fruit Seeds Vegetables and potatoes Eat: Tender, well-cooked fresh or canned vegetables without seeds, stems, or skins Cooked sweet or white potatoes without skins Strained vegetable juices without pulp or spices You can also eat these with cream sauces, or in soups, souffl?s, kugels, and casseroles. Avoid: All raw or steamed vegetables All types of beans Potatoes with skin Peas [place] Cabbage, broccoli, cauliflower, [place] sprouts, and greens Sauerkraut Onions Fruits and desserts Eat: Soft canned or cooked fruit without seeds or skins (small amounts) Small amounts of well-ripened banana Strained or clear juices Small amounts of soft cantaloupe or honeydew melon Cookies and other desserts without whole grains, dried fruit, berries, nuts, or coconut Sherbet and popsicles Serving suggestions include gelatins, milk shakes, frozen desserts, puddings, tapioca, cakes, and sauces. Avoid: All raw or dried fruits Berries Prune juice, prunes, and raisins Other foods Eat: Mayonnaise and mild salad dressings Margarine, butter, cream, and oils in small amounts Plain gravies Plain bouillon and broth Ketchup and mild mustard Spices, cooked herbs, and salt Sugar, honey, and syrup Clear jellies Hard candy and marshmallows Plain chocolate Avoid: Marmalade Pickles, olives, relish, and horseradish Popcorn Potato chips Liquids Keep in mind that low-fiber foods cause fewer bowel movements and smaller stools. You may need to drink extra fluids to help prevent constipation while you are on a low-fiber diet. Drink plenty of water unless your doctor tells you otherwise, and use juices and milk as noted above. Discharge Orders/Prescriptions Prescriptions: Continued NK Referrals / Follow Up: Elizabeth Bonilla PA [Primary Care Provider] - 03/12/25 (Follow-up within 2 weeks) Disposition Disposition (needs filled in before D/C Order can be placed): Home, Self Care Charges/Coding Visit Charges Inpatient E&M: 53386 Disch Hosp >30min
== END 2025-02-26 15:50 | disposition home or self-care (01) ==
LOC: ED 20:24 → MS3 20:37
PROVIDERS: Physician Assistant; Admitting Provider Surgery; Emergency Provider Emergency Medicine; PCP Physician Assistant Medical; Referring Provider Surgery; Visit Provider Surgery
DX: K56.52 Intestinal adhesions [bands] with complete obstruction (principal); Z86.0100 Personal history of colon polyps, unspecified; Z87.891 Personal history of nicotine dependence; Z92.21 Personal history of antineoplastic chemotherapy; Z90.49 Acquired absence of other specified parts of digestive tract; Z98.890 Other specified postprocedural states; Z85.038 Personal history of other malignant neoplasm of large intestine
CPT/HCPCS: 36415; 74018; 74019; 74177; 74250; 80048; 80053; 85025; 94668; 96361; 96374; 96375; 97802; 99221; 99285; Q9967; A4216; G0378; J2405

== ENCOUNTER 2025-03-12 11:57 | Inpatient (IN) | payer BC, MEDICARE, SELFPAY ==
[2025-03-12 11:58] VITALS: BP 154/100; PULSE 97; RESP 16; TEMP 36.4; O2SAT 98
[2025-03-12 12:00] VITALS: BMI 21.0
--- NOTE | 2025-03-12 12:56 | CT_ITS ---
PROCEDURE: ABDOMEN/PELVIS W IV CONT ONLY 03/12/2025 REASON FOR EXAM: Abdominal pain. Abdominal distention. History of colon surgery for colon cancer. History of small-bowel obstruction. History cholecystectomy. TECHNIQUE: Abdomen and pelvis CT with intravenous contrast. Coronal and Sagittal reconstruction series were provided. PATIENT PREPARATION: Per protocol ORAL CONTRAST TYPE: None. AMOUNT: 0 mL CONTRAST: Isovue-300 VOLUME: 73 mL One or more dose reduction techniques were used (e.g., Automated exposure control, adjustment of the mA and/or kV according to patient size, use of iterative reconstruction technique. RADIATION DOSE SUMMARY: CTDlvol: 14 mGy DLP: 349 mGycm COMPARISON: March 03, 2021 FINDINGS: Lung bases: Visualized lung bases appear clear. Liver: Liver appears normal. Gallbladder: Status post cholecystectomy. Spleen: Spleen appears normal Pancreas: Pancreas appears normal Adrenals: The adrenal glands appear normal Kidneys: Kidneys appear normal. No hydronephrosis Pelvis: Urinary bladder appears normal. No free fluid. Bowel: Distention of the proximal and mid small bowel loops with scattered air- fluid levels and decompressed distal small bowel loops consistent with moderate to high-grade backspace small bowel obstruction. Small bowel is dilated to 5.3 cm. No pneumatosis or pneumoperitoneum Small hiatal hernia. Postsurgical changes and partial resection of the colon. Appendix: Appendix is visualized and appears normal. Lymph nodes: No enlarged lymphadenopathy. Vasculature: [id number] atherosclerosis. No aneurysmal dilatation of the abdominal aorta Peritoneum / Retroperitoneum: No intraperitoneal or retroperitoneal hemorrhage or fluid Bones: Moderate to advanced degenerative changes of the lumbar spine. No acute osseous abnormality seen. Additional: No fluid collection CT/Abdomen/Pelvis W IV Cont ONLY IMPRESSION: Moderate to high-grade small bowel obstruction. 2. Cholecystectomy and postsurgical changes of the stomach. 3. Small hiatal hernia. 4. Normal appendix Reading Location[facility]
[2025-03-12 13:10] LABS: Absolute Lymphocyte Count 1.69 X10^3/uL (0.83-4.51); Absolute Neutrophil Count 5.5 X10^3/uL (2.0-7.7); Basophil# 0.04 X10^3/uL; Basophil% 0.5 % (0-1); Eosinophil# 0.04 X10^3/uL; Eosinophils% 0.5 % (0-5); Hemoglobin 17.5 g/dL (13.0-16.5); Lymphocyte # 1.69 X10^3/ul (0.83-4.51); Lymphocyte % 20.8 % (19-41); Mean Corp Hgb Conc 34.3 g/dL (32-36); Mean Corpuscular Hgb 32.2 pg (27.0-32.0); Mean Corpuscular Volume 93.9 fL (80-94); Monocyte# 0.86 X10^3/uL; Monocyte% 10.6 % (0-10); NRBC Flagged by Analyzer 0 % (0-5); Neutrophil # 5.49 X10^3/uL (2.7-7.7); Neutrophil % 67.4 % (47-70); Platelet Count 230 K/mm3 (150-450); RBC Distribution Width CV 13.4 % (11.6-14.6); RBC Distribution Width SD 44.5 fl (35.1-43.9); Red Blood Count 5.43 M/mm3 (4.6-6.2); White Blood Count 8.1 K/mm3 (4.4-11.0)
[2025-03-12 13:30] VITALS: BP 154/91; PULSE 79; RESP 16; O2SAT 98
[2025-03-12 13:38] LABS: Lipase 20 U/L (13-75)
[2025-03-12 13:40] LABS: ALB/GLOB Ratio 1.2 RATIO (0.9-2.4); AST(SGOT) 28 U/L (<=37); Alanine Aminotransfer ALT/SGPT 19 U/L (<=46); Albumin, Serum 4.1 g/dL (3.4-4.8); Alkaline Phosphatase 154 U/L (40-129); Anion Gap 17 (5-15); BUN 22 mg/dL (4-19); BUN/Creat Ratio 22.6 RATIO (10-20); Calcium,Total 9.6 mg/dL (7.6-11.0); Carbon Dioxide 22.3 mmol/L (21.0-32.0); Chloride 95 mmol/L (98-108); Creatinine, Serum 0.96 mg/dL (0.70-1.20); EST Glomerular Filtration Rate 86 (>60); Estimated Creatinine Clearance 63.54 ml/min (50-250); Globulin 3.3 g/dL (2.2-4.2); Glucose 104 mg/dL (70-99); Protein, Total 7.3 g/dL (5.9-8.4); Sodium Level 134 mmol/L (133-145)
[2025-03-12] MEDS: 0.9% Normal Saline (1000mL) 1,000 ML 999 ML IV (13:40)
[2025-03-12] MEDS: Morphine 4 MG/ML Syringe IV (13:40)
[2025-03-12] MEDS: Ondansetron 4 MG/2 ML Vial IV (13:40)
--- NOTE | 2025-03-12 13:42 | EDS_ITS ---
HPI History of Present Illness Chief Complaint: Abd Pain Narrative Narrative: Patient is a 69-year-old male with past medical history of colon cancer status postresection in 2018, hypertension who presented to the emergency department with chief complaint of abdominal pain. Patient states that he had his gallbladder removed about 2 months ago and states that since then he has had off-and-on pain. He states that his pain recently had been progressively worsening he states that he is following up with his oncologist today and was telling about his abdominal pain. During that exam he became concerned and sent him here to the emergency department to be evaluated. His oncologist Dr. Buchanan called me and notified me that he was sending this patient in. 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 Neuropathy Right hip pain Chemotherapy management, encounter for Admission for fitting of Port-A-Cath Adjustment and management of vascular access device Educational circumstance Colon adenocarcinoma Mass of right forearm Colon cancer Home Medications ?Medication ?Instructions ?Recorded ?Last Taken ?Type NK 02/23/25 Unknown History Allergy/AdvReac Type Severity Reaction Status Date / Time No Known Allergies Allergy Verified 03/12/25 12:00 Family History Mother Diabetes Uncle Aneurysm Heart disease Father Hypertension Myocardial infarction Heart disease Skin cancer Brother Cancer Testicular Surgical History S/P cholecystectomy Hx of colonoscopy with polypectomy H/O hernia repair History of tonsillectomy History of colon resection Social History Smoking Status: Former smoker second hand exposure: No alcohol intake: never substance use type: does not use caffeine: Yes what type of physical activity do you participate in: walking frequency: daily seatbelt use: always ROS ROS ED ROS Narrative Constitutional: Denies fevers, chills, headaches, lightness, dizziness Eyes: Denies change in vision double vision blurry vision Cardiovascular: Denies chest pain Respiratory: Denies shortness of breath Abdomen: Complains of abdominal pain not passing gas as noted above as well as nausea : Denies urinary symptoms Neurological: Denies numbness, weakness, tingling Skin: Denies rashes or lesions EXAM Physical Exam Narrative Exam Narrative: General: Patient was lying in bed resting comfortably did not appear to be acute distress Head: Atraumatic, normocephalic Eyes: PERRL bilaterally, EOMI bilateral, no conjunctival injection noted Neck: Soft, supple, trachea midline Cardiovascular: Regular rate and rhythm Respiratory: Clear to auscultation bilaterally Abdomen: Soft, hypoactive bowel sounds, diffuse tenderness to palpation Extremities: +5/5 strength in the bilateral upper and lower extremity, no pedal edema on exam Neurological: Patient follow commands and that he was at [facility] years 2024 Skin: Warm, dry, intact no rashes or lesions noted Const Vital Signs: 03/12/25 11:58 03/12/25 13:30 Temperature 97.6 F L Temperature Source Oral Pulse Rate 97 79 Respiratory Rate 16 16 Blood Pressure 154/100 H 154/91 H Blood Pressure Mean 118 112 Pulse Ox 98 98 Oxygen Delivery Method Room Air Room Air MDM MDM MDM Narrative Medical decision making narrative: Patient is a 69-year-old male who presented to the emerged part with chief complaint abdominal pain. On the differential diagnose includes but not limited to bowel obstruction, pancreatitis, diverticulitis, appendicitis. Once workup is obtained and reviewed he will be reevaluated. Patient given IV fluids morphine Zofran Patient's CBC was reviewed showed no evidence leukocytosis white blood count was 8.1, he was 17.5, platelet count was noted be 230. Patient odium normal 134, potassium of 5, creatinine was 0.96. Patient's AST and ALT are 28 and 19 respectively. Patient lipase was noted be 20. Patient's CT abdomen pelvis was reviewed by myself and there is evidence of bowel obstruction. I called on-call general surgeon Dr. Geiger who reviewed the images and was not convinced that this is a bowel obstruction and given that this is Dr. Simms patient he states that after the official read is done to give himself a call back and he will discuss the case with Dr. Simms in the meantime. Patient's CT ab pelvis with IV contrast reviewed again showed moderate to high- grade small bowel obstruction, cholecystectomy and postsurgical changes of the stomach. Small hiatal hernia normal appendix noted. I called Dr. Geiger back and he states that he spoke with Dr. Simms and that he we will plan on admitting the patient to his service since he originally took his gallbladder out. Dr. Simms called me back as well and notified me that he will admit the patient and would like an NG placed which was ordered. Patient was updated is agreeable to plan all course concerns answered bedside. Lab Data Labs: Laboratory Results - last 24 hr 03/12/25 12:39 WBC 8.1 RBC 5.43 Hgb 17.5 H Hct 51.0 MCV 93.9 MCH 32.2 H MCHC 34.3 RDW Std Deviation 44.5 H RDW Coeff of Debo 13.4 Plt Count 230 MPV 11.0 Immature Gran % (Auto) 0.200 Neut % (Auto) 67.4 Lymph % (Auto) 20.8 Bremer % (Auto) 10.6 H Eos % (Auto) 0.5 Baso % (Auto) 0.5 Absolute Neuts (auto) 5.5 Absolute Lymphs (auto) 1.69 Nucleated RBC % 0 Sodium 134 Potassium 5.0 Chloride 95 L Carbon Dioxide 22.3 Anion Gap 17 H BUN 22 H Creatinine 0.96 Estim Creat Clear Calc 63.54 Est GFR (MDRD) Non-Af 86 BUN/Creatinine Ratio 22.6 H Glucose 104 H Calcium 9.6 Total Bilirubin 0.70 AST 28 ALT 19 Alkaline Phosphatase 154 H Total Protein 7.3 Albumin 4.1 Globulin 3.3 Albumin/Globulin Ratio 1.2 Lipase 20 Radiography Diagnostic Testing: Clinical Impression(s) from Imaging Studies Abdomen/Pelvis CT 03/12/25 12:56 IMPRESSION: Moderate to high-grade small bowel obstruction. 2. Cholecystectomy and postsurgical changes of the stomach. 3. Small hiatal hernia. 4. Normal appendix Reading Location[facility] Discharge Plan Triage Chief Complaint: Abd Pain ED Provider: Bravo Shea Dx/Rx/DC Orders Clinical Impression: Small bowel obstruction, Abdominal pain Prescriptions: No Action NK Primary Care Provider: Care Physician,No Primary Referrals: Elizabeth Bonilla, PA [Non-Staff] - Print Language: Welsh Disposition Disposition: Acute Care Hospital [facility]
--- NOTE | 2025-03-12 14:51 | HP.PCM.SX_ITS ---
HPI - General General Date of Admission: 03/12/25 Date of Service: 03/12/25 Chief Complaint: Small bowel obstruction. 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 Patient had 2 lymph nodes positive. Patient was given chemotherapy. Patient has been following up with oncology and it was been noted that his CEA has been gradually increasing. Patient has been having some issues with nausea and vomiting off-and-on over the past several months. Patient underwent a cholecystectomy which I performed. Patient states that this did improve some of his symptoms but he is still having progressive episodes of abdominal distention only be relieved with large liquid bowel movements. Patient was admitted a couple of weeks ago with a small bowel obstruction which resolved with small bowel follow-through. There was no abnormalities noted at that time. He was discharged home only to have some gradual worsening of his symptoms. He followed up with his oncologist today for routine follow-up appointment. He was noted to have quite a bit of distention and he was sent to the emergency room. Patient was seen and evaluated by the ER staff. He underwent a CT scan which showed a moderate to high-grade bowel obstruction with transition in the mid small bowel. Patient did have a fair amount of stool in the right side of the colon as well. All of his blood work was pretty unremarkable. Patient states that he really has not been passing much in the way of gas or eating for the last several days. 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 Neuropathy Right hip pain Chemotherapy management, encounter for Admission for fitting of Port-A-Cath Adjustment and management of vascular access device Educational circumstance Colon adenocarcinoma Mass of right forearm Colon cancer Home Medications ?Medication ?Instructions ?Recorded ?Last Taken ?Type NK 02/23/25 Unknown History Allergy/AdvReac Type Severity Reaction Status Date / Time No Known Allergies Allergy Verified 03/12/25 12:00 Family History Mother Diabetes Uncle Aneurysm Heart disease Father Hypertension Myocardial infarction Heart disease Skin cancer Brother Cancer Testicular Surgical History S/P cholecystectomy Hx of colonoscopy with polypectomy H/O hernia repair History of tonsillectomy History of colon resection Social History Smoking Status: Former smoker second hand exposure: No alcohol intake: never substance use type: does not use caffeine: Yes what type of physical activity do you participate in: walking frequency: daily seatbelt use: always ROS Eyes Eyes: Reports systems reviewed and no addt'l complaints, except as documented ENT HEENT: Reports systems reviewed and no addt'l complaints, except as documented Cardiovascular Cardiovascular: Reports systems reviewed and no addt'l complaints, except as documented Respiratory/Chest Respiratory/Chest: Reports systems reviewed and no addt'l complaints, except as documented Gastrointestinal Gastrointestinal: Reports systems reviewed and no addt'l complaints, except as documented Genitourinary Genitourinary: Reports systems reviewed and no addt'l complaints, except as documented Musculoskeletal Musculoskeletal: Reports systems reviewed and no addt'l complaints, except as documented Integumentary Integumentary: Reports systems reviewed and no addt'l complaints, except as documented Neurologic Neurologic: Reports systems reviewed and no addt'l complaints, except as documented Vital Signs Vital Signs Vital Signs: 03/12/25 11:58 03/12/25 13:30 Temperature 97.6 F L Temperature Source Oral Pulse Rate 97 79 Respiratory Rate 16 16 Blood Pressure 154/100 H 154/91 H Blood Pressure Mean 118 112 Pulse Ox 98 98 Oxygen Delivery Method Room Air Room Air Weight Weight: 134 lb 7.712 oz Body Mass Index (BMI) 21.0 Results Medical Records Data Attestation: I reviewed the patient's medical records Lab / Micro Data Attestation: I reviewed the patient's lab results. 03/12/25 12:39 03/12/25 12:39 Labs: Laboratory Results - last 24 hr 03/12/25 12:39: WBC 8.1, RBC 5.43, Hgb 17.5 H, Hct 51.0, MCV 93.9, MCH 32.2 H, MCHC 34.3, RDW Std Deviation 44.5 H, RDW Coeff of Debo 13.4, Plt Count 230, MPV 11.0, Immature Gran % (Auto) 0.200, Neut % (Auto) 67.4, Lymph % (Auto) 20.8, M aleksandr % (Auto) 10.6 H, Eos % (Auto) 0.5, Baso % (Auto) 0.5, Absolute Neuts (auto) 5.5, Absolute Lymphs (auto) 1.69, Nucleated RBC % 0, Sodium 134, Potassium 5.0, Chloride 95 L, Carbon Dioxide 22.3, Anion Gap 17 H, BUN 22 H, Creatinine 0.96, Estim Creat Clear Calc 63.54, Est GFR (MDRD) Non-Af 86, BUN/Creatinine Ratio 22.6 H, Glucose 104 H, Calcium 9.6, Total Bilirubin 0.70, AST 28, ALT 19, A lkaline Phosphatase 154 H, Total Protein 7.3, Albumin 4.1, Globulin 3.3, Albumin/Globulin Ratio 1.2, Lipase 20 Imaging Radiology Impression Abdomen/Pelvis CT 03/12/25 12:56 IMPRESSION: Moderate to high-grade small bowel obstruction. 2. Cholecystectomy and postsurgical changes of the stomach. 3. Small hiatal hernia. 4. Normal appendix Reading Location[facility] Assessment & Plan Assessment/Plan (1) Abdominal pain in male: PLAN: Plan The patient is a 69-year-old male with recurring small bowel obstructions. Patient has a history of distal transverse colon cancer. He underwent chemotherapy. No radiation therapy. Due to the fact that he is having ongoing recurrent small bowel obstructions, my plan is to admit and place an NG tube. Patient will likely require operative intervention in the next day or so.
[2025-03-12 15:00] VITALS: BP 170/90; PULSE 78; RESP 18; O2SAT 94
[2025-03-12] MEDS: Oxymetazoline 0.05% 1 SPRAY SPRAY.BTL 2 SPRAY NASAL (15:20)
--- NOTE | 2025-03-12 15:29 | CM.ED ---
Social Work Patient stated that he would like additional information on Advanced Directives. Advanced Care planning You have a Choice brochure was given. NO further questions at this time. Chel Adam, RUNNER WORKER, TECHNICAL OPERATIONS SPECIALIST
--- NOTE | 2025-03-12 16:05 | RAD_ITS ---
PROCEDURE: ABDOMEN SINGLE VIEW (PORTABLE) 03/12/2025 REASON FOR EXAM: NG PLACEMENT TECHNIQUE: Single view abdomen. COMPARISON: 02/24/2025 FINDINGS: Bowel gas: Partially visualized bowel-gas pattern demonstrates gaseous distention of the small bowel suggestive of small-bowel obstruction. Tubes: Assuming good positioning extending below the diaphragm terminating within the stomach. Bones: Osseous structures grossly appear intact. Other: Metallic clips right upper quadrant abdomen, likely cholecystectomy. RAD/Abdomen Single View (Portable) IMPRESSION: 1. Suspected small-bowel obstruction. 2. Nasogastric tube good position within stomach. Reading Location: [facility]
[2025-03-12 16:07] VITALS: BP 170/80; PULSE 93; RESP 16; TEMP 36.7; O2SAT 92
[2025-03-12 16:08] LABS: Bacteria 0 SEEN /hpf (None Seen); Mucous, Urine 0 SEEN /hpf (<or=2+); Red Blood Cells-Urine 0 SEEN /hpf (0-5); Squamous Epithelial Cells - UA 0 SEEN /hpf (0-5); White Blood Cells 0 SEEN /hpf (0-5)
[2025-03-12 16:18] LABS: Color, Urine Yellow (Yellow); Glucose, Dipstick Normal (Normal); Ketone-Dipstick 50 mg/dl (Negative); Leukocyte Esterase-Dipstick Negative /ul (Negative); Nitrite-Dipstick Negative (Negative); Occult Blood-Urine Negative /ul (Negative); Protein-Dipstick 30 mg/dl (Negative); Specific Gravity, Urine 1.015 (1.002-1.030); Urine Clarity Sl. Cloudy (Clear); Urine Urobilinogen 4 mg/dl (Normal)
[2025-03-12 16:31] LABS: Urine Bilirubin Dipstick 1 mg/dL (Negative)
[2025-03-12 16:47] VITALS: BMI 20.3
[2025-03-12 17:03] VITALS: BP 149/98; PULSE 89; RESP 18; TEMP 36.6; O2SAT 95
[2025-03-12] MEDS: Dextrose 5%/0.9% NaCl 1,000 ML 110 ML IV (17:14)
[2025-03-12 22:43] VITALS: BP 136/80; PULSE 85; RESP 16; TEMP 37.2; O2SAT 95
[2025-03-12] MEDS: Acetaminophen 500 MG Tablet 1000 MG PO (22:44)
[2025-03-13] VITALS (13 sets, daily range): BP systolic 115–152; BP diastolic 75–91; PULSE 73–102; RESP 16–18; TEMP 36.4–37; O2SAT 93–98; BMI 20.3
[2025-03-13] MEDS: Dextrose 5%/0.9% NaCl 1,000 ML 110 ML IV ×2 (02:37→16:47)
[2025-03-13 04:46] LABS: Absolute Neutrophil Count 3.2 X10^3/uL (2.0-7.7); Basophil# 0.02 X10^3/uL; Basophil% 0.3 % (0-1); Eosinophil# 0.08 X10^3/uL; Eosinophils% 1.4 % (0-5); Hematocrit 37.8 % (40-54); Hemoglobin 13.2 g/dL (13.0-16.5); Lymphocyte % 32.1 % (19-41); Mean Corp Hgb Conc 34.9 g/dL (32-36); Mean Corpuscular Hgb 32.4 pg (27.0-32.0); Mean Corpuscular Volume 92.6 fL (80-94); Mean Platelet Vol. 9.8 fl (6.2-12.0); Monocyte# 0.65 X10^3/uL; NRBC Flagged by Analyzer 0 % (0-5); Neutrophil # 3.24 X10^3/uL (2.7-7.7); Neutrophil % 54.9 % (47-70); Platelet Count 267 K/mm3 (150-450); RBC Distribution Width CV 13.3 % (11.6-14.6); RBC Distribution Width SD 44.7 fl (35.1-43.9); Red Blood Count 4.08 M/mm3 (4.6-6.2); White Blood Count 5.9 K/mm3 (4.4-11.0)
[2025-03-13 05:39] LABS: Anion Gap 9 (5-15); BUN 21 mg/dL (4-19); BUN/Creat Ratio 20.5 RATIO (10-20); Calcium,Total 8.6 mg/dL (7.6-11.0); Carbon Dioxide 27.1 mmol/L (21.0-32.0); Chloride 103 mmol/L (98-108); Creatinine, Serum 1.02 mg/dL (0.70-1.20); EST Glomerular Filtration Rate 80 (>60); Estimated Creatinine Clearance 57.85 ml/min (50-250); Glucose 119 mg/dL (70-99); Potassium 4.1 mmol/L (3.3-5.1); Sodium Level 139 mmol/L (133-145)
--- NOTE | 2025-03-13 09:08 | PCM.PN.SRG ---
Subjective Subjective Patient evaluated resting comfortably in bed. He denies any abdominal pain. He notes feeling improved. He continues to have brown fluid ouput from his NG tube. Total output was 300 cc from the NG tube over night. Objective Data Objective Data Vital Signs: Vital Signs Temp Pulse Resp BP Pulse Ox O2 Del Method 98 F 73 18 138/87 H 95 Room Air 03/13/25 07:31 03/13/25 07:31 03/13/25 07:31 03/13/25 07:31 03/13/25 07:31 03/13/25 07:32 Oxygen Delivery Method Room Air Weight: 130 lb 1.6 oz Body Mass Index (BMI) 20.3 Intake & Output: Intake and Output for Last 24 Hours 03/11/25 03/12/25 03/13/25 23:59 23:59 23:59 Intake Total 1060 / 1060 1090 / 1090 Output Total 300 / 300 Balance 1060 / 910 790 / 790 Lab / Micro Data 03/13/25 04:06 03/13/25 04:06 Labs: Laboratory Results - last 24 hr 03/12/25 12:39: WBC 8.1, RBC 5.43, Hgb 17.5 H, Hct 51.0, MCV 93.9, MCH 32.2 H, MCHC 34.3, RDW Std Deviation 44.5 H, RDW Coeff of Debo 13.4, Plt Count 230, MPV 11.0, Immature Gran % (Auto) 0.200, Neut % (Auto) 67.4, Lymph % (Auto) 20.8, [place] % (Auto) 10.6 H, Eos % (Auto) 0.5, Baso % (Auto) 0.5, Absolute Neuts (auto) 5.5, Absolute Lymphs (auto) 1.69, Nucleated RBC % 0, Sodium 134, Potassium 5.0, Chloride 95 L, Carbon Dioxide 22.3, Anion Gap 17 H, BUN 22 H, Creatinine 0.96, Estim Creat Clear Calc 63.54, Est GFR (MDRD) Non-Af 86, BUN/Creatinine Ratio 22.6 H, Glucose 104 H, Calcium 9.6, Total Bilirubin 0.70, AST 28, ALT 19, Alkaline Phosphatase 154 H, Total Protein 7.3, Albumin 4.1, Globulin 3.3, Albumin/Globulin Ratio 1.2, Lipase 20 03/12/25 15:30: Urine Color Yellow, Urine Clarity Sl. Cloudy, Urine pH 6.0, Ur Specific [place] 1.015, Urine Protein 30 H, Urine Glucose (UA) Normal, Urine Ketones 50 H, Urine Occult Blood Negative, Urine Nitrite Negative, Urine Bilirubin 1 H, Urine Urobilinogen 4 H, Ur Leukocyte Esterase Negative, Urine RBC 0 SEEN, Urine WBC 0 SEEN, Ur Squamous Epith Cells 0 SEEN, Urine Bacteria 0 SEEN, Urine Mucus 0 SEEN 03/13/25 04:06: WBC 5.9, RBC 4.08 L, Hgb 13.2, Hct 37.8 L, MCV 92.6, MCH 32.4 H, MCHC 34.9, RDW Std Deviation 44.7 H, RDW Coeff of Debo 13.3, Plt Count 267, MPV 9.8, Immature Gran % (Auto) 0.300, Neut % (Auto) 54.9, Lymph % (Auto) 32.1, [place] % (Auto) 11.0 H, Eos % (Auto) 1.4, Baso % (Auto) 0.3, Absolute Neuts (auto) 3.2, Absolute Lymphs (auto) 1.90, Nucleated RBC % 0, Sodium 139, Potassium 4.1, Chloride 103, Carbon Dioxide 27.1, Anion Gap 9, BUN 21 H, Creatinine 1.02, Estim Creat Clear Calc 57.85, Est GFR (MDRD) Non-Af 80, BUN/Creatinine Ratio 20.5 H, Glucose 119 H, Calcium 8.6 Radiography Diagnostic Testing: Radiology Impression Abdomen/Pelvis CT 03/12/25 12:56 IMPRESSION: Moderate to high-grade small bowel obstruction. 2. Cholecystectomy and postsurgical changes of the stomach. 3. Small hiatal hernia. 4. Normal appendix Reading Location: [facility] X-Ray 03/12/25 16:05 IMPRESSION: 1. Suspected small-bowel obstruction. 2. Nasogastric tube good position within stomach. Reading Location: [facility] Physical Exam GI GI Narrative: Abdomen- soft, slightly distended. Nontender to palpation. Hypoactive bowel sounds Assessment & Plan Assessment/Plan (1) Small bowel obstruction: PLAN: I am following this patient in conjunction with Dr. Simms. He will independently evaluate this this patient. Labs reviewed. Surgery scheduled for today with Dr. Simms Continue NG tube We will continue to monitor this patient Charges/Coding Visit Charges Inpatient E&M: 22612 [facility] Hosp L1 (pre-op)
--- NOTE | 2025-03-13 10:32 | NURSING ---
Pt off of floor for sx at 10:15 am.
--- NOTE | 2025-03-13 10:45 | PRE.ANES_ITS ---
ASA Classification* ASA Classification ASA Classification: 2 Assessment & Plan Anesthesia* Anesthesia Assessment Anesthesia Assessment: Discussed sedation and/or anesthesia options, risks, benefits, and alternatives with patient/parents/legal guardian/POA. Questions invited. The patient/parents/legal guardian/POA seems to understand and agrees to proceed with anesthesia plan. Reviewed the physical assessment, medical history, allergy history and patient home medications list prior to surgery/procedure/anesthetic and documented any changes. Performed airway and anesthesia risk assessments. Anesthesia Type Anesthesia Type: General Anesthesia Focused Assessment* Temperature: 98 F Pulse Rate: 73 Blood Pressure: 138/87 Respiratory Rate: 18 Pulse Ox: 95 Airway Assessment Mouth opens: >3 cm Mallampati Score: II Focused Labs Anesthesia Preop lab: CBC WBC 5.9 K/mm3 (4.4-11.0) 03/13/25 04:06 03/13/25 RBC 4.08 M/mm3 (4.6-6.2) L 03/13/25 04:06 03/13/25 Hgb 13.2 g/dL (13.0-16.5) 03/13/25 04:06 03/13/25 Hct 37.8 % (40-54) L 03/13/25 04:06 03/13/25 Plt Count 267 K/mm3 (150-450) 03/13/25 04:06 03/13/25 CHEMISTRY Potassium 4.1 mmol/L (3.3-5.1) 03/13/25 04:06 03/13/25 Sodium 139 mmol/L (133-145) 03/13/25 04:06 03/13/25 Magnesium 2.1 mg/dL (1.6-2.6) 02/14/24 16:05 02/14/24 Phosphorus 3.2 mg/dL (2.5-4.9) 02/14/24 16:05 02/14/24 BUN 21 mg/dL (4-19) H 03/13/25 04:06 03/13/25 Creatinine 1.02 mg/dL (0.70-1.20) 03/13/25 04:06 03/13/25 Glucose 119 mg/dL (70-99) H 03/13/25 04:06 03/13/25 COAG Pre-Assessment Diagnosis/Proposed Procedure Planned Operative Procedure(s): Exploratory laparoscopy. Possible open. Release of bowel obstruction. Anesthesia History Anesthesia History - health researcher: Anesthesia History - health researcher Hx Hospitalization No 12/18/24 13:16 Any Problems With Anesthesia No 03/12/25 22:34 Cholinesterase deficiency No 03/12/25 22:34 You/Your Family Experience No 03/12/25 22:34 fever (hyperthermia) with Relationship Recent Exposure to Contagious No 03/12/25 22:34 Disease Does patient have nerve No 03/12/25 22:34 stimulator Patient instructed to have No 03/12/25 22:34 device shut off --Does patient have Pacemaker No 03/13/25 07:34 or ICD? When Was Last Pacemaker Check QUESTION #4 FULL TEXT: You/Your Family Experience fever (hyperthermia) with Anesthesia Last Oral Intake Last Oral intake: Last Oral Intake NPO since 00:00 03/13/25 07:34 Meds taken in AM with sips of water? Meds patient instructed to take am of surgery PONV PONV - health researcher: PONV - health researcher Female HX of Motion Sickness HX of N/V After Surgery Non-Smoker Duration of Surgery greater than 60 minutes Number of Risk Factors PONV Score Height & Weight Height & Weight: Anesthesia: Height & Weight Height 5 ft 7 in 03/13/25 09:54 Weight: 59.012 kg 03/13/25 09:54 Body Mass Index (BMI) 20.3 03/13/25 07:34 Respiratory Assessment Respiratory Assessment - health researcher: Respiratory Tract Infection Hx - health researcher Hx Respiratory Tract Infection No 03/12/25 22:34 STOP Sleep Apnea STOP Sleep Apnea - health researcher: STOP Sleep Apnea - health researcher Hx Hypertension No 03/12/25 17:00 Hx Sleep Apnea No 03/12/25 17:00 CPAP No 03/12/25 17:00 BIPAP Do you snore loudly (louder No 03/12/25 17:00 than talking or can be heard Do you often feel tired/ No 03/12/25 17:00 fatigued/ sleepy during daytime? Has anyone observed you stop No 03/12/25 17:00 breathing during sleep? STOP Results Negative 03/12/25 17:00 QUESTION #5 FULL TEXT : Do you snore loudly (louder than talking or can be heard through closed doors)? 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 Specify any problems Hx of Preganancy in last 3 N/A 03/12/25 17:00 Months Nurse Filling Out Transfusion KMESSENGE 03/12/25 17:00 & Questions: Date: 03/12/25 03/12/25 17:00 Time: 17:01 03/12/25 17:00 Patient unable to answer at this time (ie. confused, unrespo /Reproduction History /Reproductive History - health researcher: /Reproductive Hx- health researcher Hx Now No 03/12/25 22:34 Gestational Age (in weeks): EDC: Hx Hx Para Hx Section SAB No 03/12/25 22:34 Active Medications Active Medications: Current Medications Generic Name Dose Route Start Last Admin Trade Name Freq PRN Reason Stop Dose Admin Acetaminophen 1,000 mg 03/12/25 22:00 03/13/25 06:40 Acetaminophen 500 Mg Tablet PO Not Given Q8 INÉS Dextrose/Sodium Chloride 1,000 mls @ 110 mls/hr 03/12/25 14:45 03/13/25 02:37 Dextrose 5%/0.9% Nacl IV 110 mls/hr .[id number] INÉS Administration Sodium Chloride 250 mls @ 15 mls/hr 03/12/25 16:57 IV .[id number] PRN Saline Flush Sodium Chloride 250 mls @ 15 mls/hr 03/12/25 16:57 IV .[id number] PRN Additional IVPB Infusion Morphine Sulfate 2 - 4 mg 03/12/25 14:43 Morphine 2 Mg/Ml Syringe IV Q3H PRN PRN Pain Score 6-10 Morphine Sulfate 2 - 4 mg 03/12/25 14:50 Morphine 4 Mg/Ml Syringe IV Q3H PRN PRN Pain Score 6-10 Ondansetron HCl 4 mg 03/12/25 14:43 Ondansetron 4 Mg/2 Ml Vial IV Q8H PRN PRN NAUSEA/VOMITING Oxycodone HCl 5 mg 03/12/25 14:43 Oxycodone 5 Mg Tablet PO Q4H PRN PRN Pain Score 4-10 Sodium Chloride 10 - 40 ml 03/12/25 16:57 0.9% Saline Lock 10 Ml Syringe IV UD PRN SALINE FLUSH PFSH Medical History Small bowel obstruction due to adhesions Abdominal bloating Arthritis Hypertension Wears glasses Wears dentures Cancer Back pain Former smoker History of stress test Cardiology follow-up encounter Gallstone Abdominal pain Cough 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) Floaters 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 Neuropathy Right hip pain Chemotherapy management, encounter for Admission for fitting of Port-A-Cath Adjustment and management of vascular access device Educational circumstance Colon adenocarcinoma Mass of right forearm Colon cancer Home Medications ?Medication ?Instructions ?Recorded ?Last Taken ?Type NK 02/23/25 Unknown History Allergy/AdvReac Type Severity Reaction Status Date / Time No Known Allergies Allergy Verified 03/12/25 12:00 Family History Mother Diabetes Uncle Aneurysm Heart disease Father Hypertension Myocardial infarction Heart disease Skin cancer Brother Cancer Testicular Surgical History S/P cholecystectomy Hx of colonoscopy with polypectomy H/O hernia repair History of tonsillectomy History of colon resection Social History Smoking Status: Former smoker second hand exposure: No alcohol intake: never substance use type: does not use caffeine: Yes what type of physical activity do you participate in: walking frequency: daily seatbelt use: always Review of Systems (Anesthesia) ROS Narrative System reviewed and no additional complaints, except as documented.
[2025-03-13] MEDS: Lactated Ringers 1,000 ML 15 ML IV (10:48)
--- NOTE | 2025-03-13 11:25 | PCM.HP.STD ---
HPI - General General Date of Admission: 03/12/25 Date of Service: 03/13/25 Chief Complaint: Small bowel obstruction. HPI Narrative YUDELKA MOBLEY, is a 69 M who presents with recurrent SBO. 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 Neuropathy Right hip pain Chemotherapy management, encounter for Admission for fitting of Port-A-Cath Adjustment and management of vascular access device Educational circumstance Colon adenocarcinoma Mass of right forearm Colon cancer Home Medications ?Medication ?Instructions ?Recorded ?Last Taken ?Type NK 02/23/25 Unknown History Allergy/AdvReac Type Severity Reaction Status Date / Time No Known Allergies Allergy Verified 03/12/25 12:00 Family History Mother Diabetes Uncle Aneurysm Heart disease Father Hypertension Myocardial infarction Heart disease Skin cancer Brother Cancer Testicular Surgical History S/P cholecystectomy Hx of colonoscopy with polypectomy H/O hernia repair History of tonsillectomy History of colon resection Social History Smoking Status: Former smoker second hand exposure: No alcohol intake: never substance use type: does not use caffeine: Yes what type of physical activity do you participate in: walking frequency: daily seatbelt use: always Vital Signs Vital Signs Vital Signs: 03/12/25 11:58 03/12/25 13:30 03/12/25 15:00 Temperature 97.6 F L Temperature Source Oral Pulse Rate 97 79 78 Respiratory Rate 16 16 18 Respiratory Effort Respiratory Depth Respiratory Pattern Blood Pressure 154/100 H 154/91 H 170/90 H Blood Pressure Mean 118 112 116 Blood Pressure Source Blood Pressure Position Blood Pressure Location Pulse Ox 98 98 94 Oxygen Delivery Method Room Air Room Air Room Air 03/12/25 16:07 03/12/25 17:03 03/12/25 22:27 Temperature 98.0 F 98 F Temperature Source Temporal Pulse Rate 93 89 Respiratory Rate 16 18 Respiratory Effort Normal Non-Labored Respiratory Depth Normal Respiratory Pattern Normal Blood Pressure 170/80 H 149/98 H Blood Pressure Mean 110 115 Blood Pressure Source Monitor Blood Pressure Position Semi-Fowlers Blood Pressure Location Left Arm Pulse Ox 92 95 Oxygen Delivery Method Room Air Room Air 03/12/25 22:43 03/13/25 02:35 03/13/25 07:31 Temperature 98.9 F 98.6 F 98 F Temperature Source Oral Oral Oral Pulse Rate 85 84 73 Respiratory Rate 16 16 18 Respiratory Effort Respiratory Depth Respiratory Pattern Blood Pressure 136/80 H 136/85 H 138/87 H Blood Pressure Mean 98 102 104 Blood Pressure Source Monitor Monitor Monitor Blood Pressure Position Semi-Fowlers Semi-Fowlers Semi-Fowlers Blood Pressure Location Left Arm Left Arm Left Arm Pulse Ox 95 95 95 Oxygen Delivery Method Room Air Room Air Room Air 03/13/25 07:32 03/13/25 10:46 Temperature 98 F Temperature Source Pulse Rate 73 Respiratory Rate 18 Respiratory Effort Normal Non-Labored Respiratory Depth Normal Respiratory Pattern Normal Blood Pressure 138/87 H Blood Pressure Mean Blood Pressure Source Blood Pressure Position Blood Pressure Location Pulse Ox 95 Oxygen Delivery Method Room Air Weight Weight: 130 lb 1.6 oz Body Mass Index (BMI) 20.3 Physical Exam Const alert, oriented x3 and no apparent distress GI GI Narrative: distended. mild ttp Results Lab / Micro Data 03/13/25 04:06 03/13/25 04:06 Labs: Laboratory Results - last 24 hr 03/12/25 12:39: WBC 8.1, RBC 5.43, Hgb 17.5 H, Hct 51.0, MCV 93.9, MCH 32.2 H, MCHC 34.3, RDW Std Deviation 44.5 H, RDW Coeff of Debo 13.4, Plt Count 230, MPV 11.0, Immature Gran % (Auto) 0.200, Neut % (Auto) 67.4, Lymph % (Auto) 20.8, [place] % (Auto) 10.6 H, Eos % (Auto) 0.5, Baso % (Auto) 0.5, Absolute Neuts (auto) 5.5, Absolute Lymphs (auto) 1.69, Nucleated RBC % 0, Sodium 134, Potassium 5.0, Chloride 95 L, Carbon Dioxide 22.3, Anion Gap 17 H, BUN 22 H, Creatinine 0.96, Estim Creat Clear Calc 63.54, Est GFR (MDRD) Non-Af 86, BUN/Creatinine Ratio 22.6 H, Glucose 104 H, Calcium 9.6, Total Bilirubin 0.70, AST 28, ALT 19, Alkaline Phosphatase 154 H, Total Protein 7.3, Albumin 4.1, Globulin 3.3, Albumin/Globulin Ratio 1.2, Lipase 20 03/12/25 15:30: Urine Color Yellow, Urine Clarity Sl. Cloudy, Urine pH 6.0, Ur Specific [place] 1.015, Urine Protein 30 H, Urine Glucose (UA) Normal, Urine Ketones 50 H, Urine Occult Blood Negative, Urine Nitrite Negative, Urine Bilirubin 1 H, Urine Urobilinogen 4 H, Ur Leukocyte Esterase Negative, Urine RBC 0 SEEN, Urine WBC 0 SEEN, Ur Squamous Epith Cells 0 SEEN, Urine Bacteria 0 SEEN, Urine Mucus 0 SEEN 03/13/25 04:06: WBC 5.9, RBC 4.08 L, Hgb 13.2, Hct 37.8 L, MCV 92.6, MCH 32.4 H, MCHC 34.9, RDW Std Deviation 44.7 H, RDW Coeff of Debo 13.3, Plt Count 267, MPV 9.8, Immature Gran % (Auto) 0.300, Neut % (Auto) 54.9, Lymph % (Auto) 32.1, [place] % (Auto) 11.0 H, Eos % (Auto) 1.4, Baso % (Auto) 0.3, Absolute Neuts (auto) 3.2, Absolute Lymphs (auto) 1.90, Nucleated RBC % 0, Sodium 139, Potassium 4.1, Chloride 103, Carbon Dioxide 27.1, Anion Gap 9, BUN 21 H, Creatinine 1.02, Estim Creat Clear Calc 57.85, Est GFR (MDRD) Non-Af 80, BUN/Creatinine Ratio 20.5 H, Glucose 119 H, Calcium 8.6 Imaging Radiology Impression Abdomen/Pelvis CT 03/12/25 12:56 IMPRESSION: Moderate to high-grade small bowel obstruction. 2. Cholecystectomy and postsurgical changes of the stomach. 3. Small hiatal hernia. 4. Normal appendix Reading Location: [facility] X-Ray 03/12/25 16:05 IMPRESSION: 1. Suspected small-bowel obstruction. 2. Nasogastric tube good position within stomach. Reading Location: [facility] Assessment & Plan Assessment/Plan (1) Small bowel obstruction: PLAN: Plan laparoscopy and possible laparotomy for release of SBO; discussed possible bowel resection etc
--- NOTE | 2025-03-13 11:30 | COL_PTH ---
PATIENT: YUDELKA MOBLEY LOC: MS3 U#:[id number] AGE/SX: 69/M ROOM: [facility] RE03/12/[address]: Dr. Jass Simms MD : [id number] BED: 1 DIS: 03/18/2025 SPEC #: [id number] RECD: 03/13/25 18:17 STATUS: YESENIA DELEON #: [id number] TIO: 03/13/25 11:[address]: Jass Simms DEPT: SURGICAL PATHOLOGY RECD BY: Ish Max ENTERED: 03/14/25 08:48 SP TYPE: COLON OTHR DR: Destiny Primary Care Phys Tissues: A - Colon, NOS B - Peritoneum, NOS Procedures: Immunohistochemical Stains Surgery Specimen Level IV Surgery Specimen Level V HEADER OPERATION: Exploratory laparoscopy converted to open laparotomy, bowel PRE-OP DIAGNOSIS: Small bowel obstruction, small bowel obstruction secondary to small bowel mass TISSUE SUBMITTED: A- Distal ileum and cecum, B- Peritoneal lesion MICROSCOPIC DIAGNOSIS A. 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 * Focal small bowel mucosal ulcerations. * Viable proximal (ileal) and distal (colonic) surgical margins, negative for malignancy. * Two of 10 mesenteric and anand-intestinal lymph nodes positive for metastasis (2/10). * pT4, pN1 * Appendix with no specific pathologic change (incidental). B. Peritoneum, lesion, biopsy: * Small benign mesothelial inclusion cyst - see note. * Note: The cyst lining is CK7 positive, supporting a mesothelial origin. CASE SUMMARY: (SMALL INTESTINE) Standard(s): AJCC-UICC 8 SPECIMEN A Procedure _X_ Segmental resection TUMOR Tumor Site _X_ Ileum: distal Histologic Type _X_ Adenocarcinoma (not otherwise characterized) Histologic Grade _X_ G2, moderately differentiated Tumor Size Greatest dimension in Centimeters (cm): 2.5 cm (as measured on the glass slide) Additional Dimension in Centimeters (cm): 1.4 x 1.3 cm (gross measurements) Tumor Extent _X_ High-grade dysplasia / carcinoma in situ _X_ Invades lamina propria _X_ Invades submucosa _X_ Invades muscularis propria _X_ Invades through muscularis propria into subserosa _X_ Perforates visceral peritoneum Macroscopic Tumor Perforation _X_ Not identified Lymphovascular Invasion _X_ Not identified Tumor Comment: perineural invasion, widespread MARGINS Margin Status for Invasive Carcinoma _X_ All margins negative for invasive carcinoma +Closest Margin(s) to Invasive Carcinoma (select all that apply) _X_ Radial or mesenteric (0.2 cm) Margin Status for Dysplasia (select all that apply) _X_ All margins negative for carcinoma in situ (high-grade dysplasia) / adenoma REGIONAL LYMPH NODES Regional Lymph Node Status _X_ Tumor present in regional lymph node(s) Number of Lymph Nodes with Tumor _X_ Exact number (specify): 2 Number of Lymph Nodes Examined _X_ Exact number (specify): 10 PATHOLOGIC STAGE CLASSIFICATION (pTNM, AJCC 8th Edition) TNM Descriptors (select all that apply) _X_ Not applicable ___ m (multiple primary tumors) ___ r (recurrent) ___ y (post-treatment) pT Category ___ pT not assigned (cannot be determined based on available pathological information) ___ pT0: No evidence of primary tumor ___ pTis: High-grade dysplasia / carcinoma in situ pT1: Tumor invades the lamina propria or submucosa ___ pT1a: Tumor invades the lamina propria ___ pT1b: Tumor invades the submucosa ___ pT1 (subcategory cannot be determined) ___ pT2: Tumor invades the muscularis propria ___ pT3: Tumor invades through the muscularis propria into the subserosa, or extends into nonperitonealized perimuscular tissue (mesentery or retroperitoneum) without serosal penetration# _X_ pT4: Tumor perforates the visceral peritoneum or directly invades other organs or structures pN Category ___ pN not assigned (no nodes submitted or found)? ___ pN not assigned (cannot be determined based on available pathological information) ___ pN0: No regional lymph node metastasis _X_ pN1: Metastasis in one or two regional lymph nodes ___ pN2: Metastasis in three or more regional lymph nodes pM Category (required only if confirmed pathologically) _X_ Not applicable - pM cannot be determined from the submitted specimen(s) ___ pM1: Distant metastasis ADDITIONAL FINDINGS +Additional Findings Focal small ileal mucosal ulcerations SPECIAL STUDIES IHC for mismatch repair proteins is PENDING at [facility] and will be reported in an addendum. MICROSCOPIC DESCRIPTION Slides are reviewed. All matched controls reacted appropriately. These tests were developed and their performance characteristics determined by [facility]. They may not have been cleared or approved by the U.S. Food and Drug Administration. The FDA has determined that such clearance or approval is not necessary.? The above immunohistochemical/dualISH?markers are ordered and reviewed by the Pathologist. GROSS DESCRIPTION A. Received in formalin in a container labeled with the patient's name, date of , and distal ileum and cecum is an unoriented ileocecectomy specimen received with 2 stapled margins. The specimen consists of cecum (7.5 x 5.5 x 5.5 cm), attached appendix (6.5 cm in length by 0.8 cm in diameter), small bowel (33 cm in length with a diameter ranging from 2.0 to 7.3 cm), and attached mesenteric fat (up to 3.4 cm in greatest thickness). The serosa is red-bernal, focally dusky, with dense adhesions. The small bowel is notable for a 2.5 cm in length by 1.8 cm in diameter stricture site (serosa inked black) situated 6 cm from the ileocecal valve, 9 cm from the distal stapled margin, and 25 cm from the proximal stapled margin. Proximal to the stricture site the ileum is markedly dilated with an internal circumference up to 12.5 cm.Overlying the stricture, within the attached mesenteric fat, is a firm and irregular mass measuring 2.2 x 1.4 x 1.3 cm. It is situated 23.5 cm from the proximal resection margin, 8.5 cm from the distal stapled resection margin, 1.4 cm from the closest mesenteric margin (inked blue), and comes to within 7.0 cm of the ileocecal valve. Serial sections of the mass reveal suspicious bernal-yellow, firm surfaces that grossly involve the mesenteric fat; the serosa and the muscularis of the small bowel. Involvement of the mucosa is not appreciated grossly. The mucosa overlying the stricture site is red-hines and nodular with an internal circumference of 2.7 cm. Situated 0.8 cm from the mass is an additional suspicious, white-bernal firm nodule measuring 1.3 x 0.9 x 0.6 cm. This comes to within 0.5 cm of the blue inked mesenteric margin. The mucosa proximal to the stricture site, within the dilated portion of bowel, is red-hines, dusky, and appears diffusely edematous with a wall thickness measuring up to 0.9 cm. No other mass lesions are grossly recognized. The cecum appears dilated with a thinned wall measuring 0.2 cm in average thickness. The mucosa is bernal-pink with a scant amount of typical haustral folds. The appendix reveals a 0.3 cm lumen filled with brown fecal material, with unremarkable morales. The attached mesenteric fat is sectioned to reveal 9 bernal-pink lymph node candidates ranging from 0.3 x 0.3 x 0.3 cm to 1.4 x 1.0 x 0.5 cm. Two lymph node candidates are white-bernal, firm, with suspicious surfaces. Market Survey Representative sections:A1. Proximal resection margin, en faceA2. Distal margin, en faceA3. Mass and adjacent nodule, perpendicular to mesenteric marginA4. Nodule to mesenteric margin, perpendicularA5-6. Bisected slice of nodule with closest mesenteric margin, perpendicular (A5) and nodule to mucosa (A6) inked orange where sections connectA7. Area of stricture site with underlying mass A8-9. Full-thickness sections of edematous and dusky small bowel submitted from proximal to [id number]. Ileocecal valve with thin wall of cecum A 11. Appendix A12. 4 lymph node candidates, whole (suspicious candidate inked red)A13. 2 lymph node candidates, each bisected and 1 inked [id number]. Firm and suspicious lymph node candidate, trisectedA 15. 1 lymph node candidate, trisectedA 16. 1 lymph node candidate, quadrisected B. Received in formalin in a container labeled with the patient's name, date of , and peritoneal lesion is a 0.4 x 0.3 x 0.3 cm white-bernal, and rated nodule. Submitted in toto in B1. [facility] 03-14-2025 CPT:63922,39009,15532u4 ADDENDUM ADDENDUM ADDENDUM ADDENDUM ADDENDUM ADDENDUM ADDENDUM ADDENDUM ADDENDUM ADDENDUM ADDENDUM ADDENDUM ADDENDUM ADDENDUM ADDENDUM ADDENDUM ADDENDUM ADDENDUM ADDENDUM ADDENDUM ADDENDUM ADDENDUM ADDENDUM ADDENDUM ADDENDUM ADDENDUM ADDENDUM ADDENDUM ADDENDUM ADDENDUM ADDENDUM ADDENDUM ADDENDUM ADDENDUM ADDENDUM ADDENDUM ADDENDUM ADDENDUM ADDENDUM ADDENDUM ADDENDUM ADDENDUM ADDENDUM ADDENDUM ADDENDUM 03/24/2025 13:15 ADDENDUM 03/24/2025 13:15 ADDENDUM 03/24/2025 13:15 ADDENDUM 03/24/2025 13:15 ADDENDUM 03/24/2025 13:15 This addendum is to report the IHC stain results for CK20 (performed at [facility]) and the Mismatch Repair Proteins (MMR, performed at [facility]): CK20 highlights tumor cells involving the inked serosal surface. Mismatch Repair Protein (MMR) Nuclear Expression by IHC: ? MLH1: ?Present/intact ? PMS2: ?Present/intact ? MSH2: ?Present/intact ? MSH6: ?Present/intact IHC Interpretation: No loss of nuclear expression of MMR proteins: low probability of microsatellite instability-high (MSI-H)# # There are exceptions to the above IHC interpretations. These results should not be considered in isolation, and clinical correlation with genetic counseling is recommended to assess the need for germline testing. All controls show appropriate reactivity. All immunohistochemistry, in situ hybridization, and histochemical tests were developed by and are performed at the [facility], [address] [place] [address], [place] [address]. All Immunofluorescent (IF) ?tests were developed by and are performed at the [facility], [address] [place] [address], [place], [place] ?[facility]. All tests reported here, except those addressing HER2 overexpression as a predictive marker, have not been cleared by or approved by the US Food and Drug Administration (FDA). The laboratory is regulated under CLIA as qualified to perform high-complexity testing. The tests are used for clinical purposes. They should not be regarded as investigational or for research. The mismatch repair proteins are evaluated by immunohistochemistry on formalin-fixed, paraffin-embedded tissue, using clone [id number] for MLH1, clone [id number] for PMS2, clone RED2 for MSH2, and clone EP49 for MSH6, and Tissue Adiel Genie? Pro Detection Kit, DAB on the [employer] Tissue Adiel Genie Advanced Staining System. Convincing nuclear staining in > 1% of tumor cells that is as strong as internal control is considered present/intact. Complete absence of nuclear staining in tumor cells in the presence of nuclear expression in internal control cells is considered absent/lost. Rarely a discrete area of a tumor can show loss of staining with retained nuclear expression in the adjacent tumor cells and internal control cells, which is regarded as subclonal loss and can also be of clinical significance.
[2025-03-13] MEDS: Cefotetan 2 GM in 0.9% Normal Saline (100mL MB+) 100 ML IV (11:45)
--- NOTE | 2025-03-13 12:04 | CASEMGMT ---
Addendum entered by Delphine Alcazar 03/13/25 15:46: Pt remains off the floor at this time. Original Note: RN CM Readmission Note Previous Admission: 02/23/25-02/26/25 Diagnosis: SBO DC Disposition: Home Current Admission: Admitted 03/12/25 Current Diagnosis: SBO Pt admitted on index admission with SBO. Pt had NG to decompress stomach and was able to tolerate a diet and was subsequently dc'd home without surgical intervention. Pt saw his oncologist on day of admission and had complaints of abd pain and was referred to the ER. CT scan showed SBO. Pt currently in surgery for exploratory lap to release bowel obstruction. JODY BROCK to follow post surgery for dc plan and homegoing needs.
[2025-03-13] MEDS: Bupivacaine 0.25% 30 ML Vial (15:01)
[2025-03-13] MEDS: BUPIVACAINE LIPOSOME/PF 20 ML VIAL OPERA.SITE (15:01)
[2025-03-13] MEDS: 0.9% Normal Saline (Pres. free 10 ML Vial (15:01)
--- NOTE | 2025-03-13 15:28 | PCM.POST.ANE ---
Anesthesia: Postop Eval I Current Vital Signs Temperature: 97.6 F Pulse Rate: 77 Blood Pressure: 141/91 Respiratory Rate: 16 Pulse Ox: 95 Assessment Airway patent: Yes Spontaneous unlabored respirations: Yes nausea: No Vomiting: No Anesthesia Complication: No Fluid Hydration Crystalloid volume administer (ml): 2,000 Total IV fluid infused: 2,000 Progress Note Anesthesia document: Postop Eval 1 completed: Yes
--- NOTE | 2025-03-13 15:40 | POSTOPAN2_ITS ---
Anesthesia Postop Eval I Sum Postop Eval Completion status Anesthesia document: Postop Eval 1 completed: Yes Anesthesia Postop Eval I Summary Anesthesia Postop Eval I Summary: Anesthesia Postop Eval I: Assessment Summary Airway patent Yes 03/13/25 15:29 PICU NURSE.CSIR Spontaneous unlabored Yes 03/13/25 15:29 PICU NURSE.CSIR respirations Mental status nausea No 03/13/25 15:29 PICU NURSE.CSIR Vomiting No 03/13/25 15:29 PICU NURSE.CSIR Anesthesia Postop Eval I: Fluid Summary Crystalloid volume administer 2,000 03/13/25 15:29 PICU NURSE.CSIR (ml) Colloids volume administered ( ml) Blood Product volume administered (ml) Total IV fluid infused 2,000 03/13/25 15:29 PICU NURSE.CSIR Anesthesia Postop Eval I: Summary Notes Anesthesia Complication No 03/13/25 15:29 PICU NURSE.CSIR Anesthesia Complication Comment: Post-operative progress note Anesthesia: Postop Eval II Evaluation Mental status: Awake Pain Level: 0 nausea: No Vomiting: No
--- NOTE | 2025-03-13 15:40 | PCM.POSTANE2 ---
Anesthesia Postop Eval I Sum Postop Eval Completion status Anesthesia document: Postop Eval 1 completed: Yes Anesthesia Postop Eval I Summary Anesthesia Postop Eval I Summary: Anesthesia Postop Eval I: Assessment Summary Airway patent Yes 03/13/25 15:29 BUNCHER OPERATOR.CSIR Spontaneous unlabored Yes 03/13/25 15:29 BUNCHER OPERATOR.CSIR respirations Mental status nausea No 03/13/25 15:29 BUNCHER OPERATOR.CSIR Vomiting No 03/13/25 15:29 BUNCHER OPERATOR.CSIR Anesthesia Postop Eval I: Fluid Summary Crystalloid volume administer 2,000 03/13/25 15:29 BUNCHER OPERATOR.CSIR (ml) Colloids volume administered ( ml) Blood Product volume administered (ml) Total IV fluid infused 2,000 03/13/25 15:29 BUNCHER OPERATOR.CSIR Anesthesia Postop Eval I: Summary Notes Anesthesia Complication No 03/13/25 15:29 BUNCHER OPERATOR.CSIR Anesthesia Complication Comment: Post-operative progress note Anesthesia: Postop Eval II Evaluation Mental status: Awake Pain Level: 0 nausea: No Vomiting: No
--- NOTE | 2025-03-13 15:56 | PCM.OPRPT ---
Problems Associated Problem List Diagnoses (1) Small bowel obstruction: Multi Select Codes Digestive Digestive CPT Codes: 69312 Freeing of bowel adhesion, 12325 Removal of colon, 92644 Exploration of abdomen, 39041 Biopsy abdominal mass and 45110 Laparoscoy & Biopsy Endocrine,Ocular,Nerv, Auditory Endocrine,Ocular,Nerv, Auditory CPT Codes: Other Procedure See Report (53268 -- bilat tawny block ) Operative Report (Standard) Operative Information Date of Procedure: 03/13/25 Pre-Operative Diagnosis: Small bowel obstruction Post-Operative Diagnosis: Small bowel obstruction secondary to distal small bowel mass. Possible peritoneal metastasis Intra-abdominal adhesions Surgery/Procedure Performed: 1. Diagnostic laparoscopy 2. Exploratory laparotomy 3. Lysis of adhesions?extensive 4. Ileocecectomy 5. Biopsy of peritoneal lesion 6. Bilateral TAWNY block nutrition services worker: Yes Scene Painter: Tika Mcdaniel Tasks completed by rn first assistant: Closing, Hemostasis: Electrocautery and Retracting Additional commercial loan assistant?: No Type of Anesthesia: General and Other (Tap block) RN Documented Start/Stop Times: Operation Date: 03/13/25 11:30 Case Time Into Pre-Op 03/13/25 10:38 Anesthesia Start 03/13/25 11:29 Into Room 03/13/25 11:29 Procedure Start 03/13/25 11:58 Procedure End 03/13/25 15:08 Anesthesia End 03/13/25 15:25 Out of Room 03/13/25 15:25 Into Recovery 03/13/25 15:27 Procedure Start Time: 11:58 Procedure Stop Time: 15:08 Select all DRAINS/GRAFTS/IMPLANTS that apply: None Special Medications: Preoperative antibiotics Estimated Blood Loss: 150 mL Specimen collected: Yes Description of specimen(s) removed: 1. Ileocecectomy (terminal ileum and cecum) 2. Peritoneal lesion biopsy Description of surgery: The patient is a 69-year-old male with a history of distal transverse colon cancer treated back in 2018. He was treated surgically and also underwent chemotherapy. Patient has been having ongoing abdominal pain for numerous months. I was asked to initially see the patient for possible gallbladder issue. I did perform a laparoscopic cholecystectomy and he did notice some improvement however he then was admitted with bowel obstruction a few weeks ago. Small bowel follow-through was negative for any obvious lesions and his bowel obstruction resolved. It was also noted during that hospitalization that his CEA was slowly rising. I saw the patient back in the office and suggested and scheduled him for a PET CT scan. He was seen by his oncologist yesterday and was then sent to the emergency room. He was found to have another bowel obstruction. He was subsidy admitted. I made plans for surgical intervention today. I offered him a diagnostic laparoscopy with possible laparotomy. He wished to proceed. The patient was brought to the operating room today following informed consent. Preoperative antibiotics were given and a timeout was performed. He was placed supine on the operative table with arms outstretched and arm boards. A general endotracheal anesthesia was induced. The abdomen was then prepped and draped in the usual sterile manner we initially gain access to the abdomen by reopening one of the previous right sided 5 mm trocar sites from his recent lap lul. This was placed without incident. The abdomen was then fully insufflated with CO2 gas. A 5 mm 0 degree scope was inserted. There were no signs of bowel or vascular injury. I was able to visualize numerous dilated loops of small bowel. He did have bowel adhesed to the previous midline incision site. I placed another 5 mm trocar on the right side and used curved scissors to take down some of these adhesions along the midline. At this point is decided that it would be best to convert to an open laparotomy to best explore the abdomen. A #10 blade was then used to reopen his previous incision. Bovie electrocautery was then used dissect down through subcutaneous tissues. The abdomen was then entered. There is numerous intra-abdominal adhesions. There were also numerous dilated loops of small bowel. We began by taking down as many adhesions as possible to mobilize the small bowel to get the bowel up and out of the pelvis to try to identify the point of transition. The lysis of adhesions was quite extensive and probably encompassed at least 50% of this through our surgery so adding at least an hour and a half to the operative time. It was eventually noted that the point of transition was in the left lower quadrant. There was a very hard mass involving the small bowel. This was tightly adherent to the left lower quadrant. In order to further mobilize this mass we had to take down some very chronic thick dense adhesive bands in the left lower quadrant. In doing so was able to better mobilize the small bowel. I was eventually able to dissect the mass off of the peritoneum in the left lower quadrant. Once this was fully mobilized it was noted that this mass which was clearly malignant, was probably about 10 to 12 cm from the cecum. At this point it was decided that at least an ileocecectomy needed to be performed. We transected the distal ileum and then used a LigaSure impact device to take down the mesentery. Once at the level of the cecum the lateral attachments of the right colon were taken down. The right colon was more fully mobilized. The right colon was then transected in the proximal ascending colon. The 2 ends of the bowel were then brought together to begin creating the anastomosis. Attention was turned to the small bowel side first. A bowel clamp was placed and then a small corner of the staple line was excised. A pool tip sucker catheter was inserted into the small bowel in order to decompress it. The small bowel was nicely decompressed in this process. The anastomosis was created by ulcer trimming away a small corner of the staple line on the colon side. The 2 ends of the ERIC 75 stapler were then brought together and the anastomosis was then created. A TA 60 was used to close the open end of the anastomosis. A 3-0 silk was placed at the crotch of the anastomosis. 3-0 Vicryl was then used to close the mesenteric defect in a running locking manner. The small bowel was run. There was 1 area of mid small bowel that appeared to have a slight abrasion to the serosa. This was oversewn using 3-0 silk. Also examined the small bowel there was noted to be several small lesions on the mesentery and on the bowel itself. Clinically the seem to be more than likely peritoneal metastasis. 1 of these was excised and sent to pathology. The abdomen was then copiously irrigated with several liters of saline. At this point a tap block was performed bilaterally as an open procedure. Hemostasis was excellent. All counts were correct. The abdomen was then closed using #1 looped PDS x 2. 3-0 Vicryl was used to reapproximate the subdermal layer. Skin terry were then utilized to close the skin. The patient was awakened anesthesia and taken recovery in good condition. A Mcdonald catheter was placed at the completion of the surgery. Surgical Findings: Obstructing small bowel mass involving the distal ileum as the cause for the small bowel obstruction. There were extensive intra-abdominal adhesions from previous surgery Possible peritoneal studding Complications Complications: No Admit VTE Documentation VTE Present on Admission: No VTE Mechan Device Prophylaxis: SCD's VTE Pharm Prophylaxis ordered?: Yes
[2025-03-13] MEDS: Morphine 2 MG/ML Syringe IV ×2 (18:28→21:44)
[2025-03-13] MEDS: Acetaminophen 500 MG Tablet 1000 MG PO (21:26)
[2025-03-13] MEDS: 0.9% Saline Lock 10 ML Syringe IV (21:45)
[2025-03-14] VITALS (7 sets, daily range): BP systolic 115–157; BP diastolic 67–85; PULSE 95–102; RESP 16–18; TEMP 36.5–36.9; O2SAT 91–98
[2025-03-14] MEDS: Dextrose 5%/0.9% NaCl 1,000 ML 110 ML IV ×3 (02:06→22:35)
[2025-03-14] MEDS: Acetaminophen 500 MG Tablet 1000 MG PO ×3 (06:24→22:35)
[2025-03-14] MEDS: oxyCODONE 5 MG Tablet PO ×2 (06:24→13:38)
--- NOTE | 2025-03-14 07:11 | PN.SURG_ITS ---
Subjective Subjective Patient evaluated resting comfortably in bed. He notes intermittent right lower quadrant stabbing sensations, which last seconds otherwise no pain at rest. He has not been up since surgery. 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 He denies any nausea, vomiting. He notes his throat is sore. He would like the NG tube out. NG output was 250 over night. Mcdonald output was 800 cc over night. Tylenol and Oxyir have been controlling his pain. Binder has been helping as well. Most of his discomfort is in the right lower quadrant. Objective Data Objective Data Vital Signs: Vital Signs Temp Pulse Resp BP Pulse Ox O2 Del Method O2 Flow Rate 98 F 98 16 122/73 H 98 Nasal Cannula 2 03/14/25 04:31 03/14/25 04:31 03/14/25 04:31 03/14/25 04:31 03/14/25 04:31 03/14/25 04:31 03/14/25 04:31 Oxygen Flow Rate (L/min) 2 Oxygen Delivery Method Nasal Cannula Weight: 130 lb 1.6 oz Body Mass Index (BMI) 20.3 Intake & Output: Intake and Output for Last 24 Hours 03/12/25 03/13/25 03/14/25 23:59 23:59 23:59 Intake Total 1060 / 1060 4202.25 / 4202.25 1060 / 1060 Output Total 415 / 965 1050 / 1050 Balance 1060 / 910 3787.25 / 3237.25 Lab / Micro Data 03/13/25 04:06 03/13/25 04:06 Physical Exam GI GI Narrative: Abdomen- soft, slightly distended. Tenderness in the right lower quadrant. Incisions c/d/i. No erythema or infection noted. No oozing at the incision site. Binder intact. Assessment & Plan Assessment/Plan (1) Abdominal pain: (2) Small bowel obstruction: PLAN: Plan I am following this patient in conjunction with Dr. Simms. He will independently evaluate this patient. Labs pending. Continue NG tube at this time Continue Mcdonald Encourage ambulation and I.S. Continue pain control We will continue to monitor this patient Charges/Coding Visit Charges Inpatient E&M: 48689 Subs Hosp L1 (post-op)
[2025-03-14 08:20] LABS: Absolute Lymphocyte Count 1.27 X10^3/uL (0.83-4.51); Absolute Neutrophil Count 8.2 X10^3/uL (2.0-7.7); Basophil# 0.04 X10^3/uL; Basophil% 0.4 % (0-1); Hematocrit 38.6 % (40-54); Hemoglobin 12.8 g/dL (13.0-16.5); Lymphocyte # 1.27 X10^3/ul (0.83-4.51); Lymphocyte % 12.3 % (19-41); Mean Corp Hgb Conc 33.2 g/dL (32-36); Mean Corpuscular Hgb 30.8 pg (27.0-32.0); Mean Platelet Vol. 9.9 fl (6.2-12.0); Monocyte# 0.64 X10^3/uL; Monocyte% 6.2 % (0-10); NRBC Flagged by Analyzer 0 % (0-5); Neutrophil # 8.22 X10^3/uL (2.7-7.7); Neutrophil % 79.6 % (47-70); Platelet Count 239 K/mm3 (150-450); RBC Distribution Width CV 13.7 % (11.6-14.6); RBC Distribution Width SD 46.6 fl (35.1-43.9); Red Blood Count 4.15 M/mm3 (4.6-6.2); White Blood Count 10.3 K/mm3 (4.4-11.0)
[2025-03-14 09:45] LABS: Anion Gap 8 (5-15); BUN 19 mg/dL (4-19); BUN/Creat Ratio 15.6 RATIO (10-20); Calcium,Total 7.9 mg/dL (7.6-11.0); Carbon Dioxide 24.2 mmol/L (21.0-32.0); Chloride 108 mmol/L (98-108); Creatinine, Serum 1.21 mg/dL (0.70-1.20); EST Glomerular Filtration Rate 65 (>60); Estimated Creatinine Clearance 48.77 ml/min (50-250); Glucose 139 mg/dL (70-99); Potassium 4.2 mmol/L (3.3-5.1); Sodium Level 140 mmol/L (133-145)
--- NOTE | 2025-03-14 11:23 | CASEMGMT ---
JODY CM into pt room, pt lying in bed with NG in. Pt states that he was taking his miralax as ordered after last hospitalization. Pt did follow up with Dr. Buchanan and was sent into the ER after seeing him in the office. Pt states he was following the ordered diet as well. Pt does not have a PCP. Provided pt with a local healthcare directory list. Pt denies need for assistance with setting this up. Pt states he lives with his and is I in ADL/IADLs but can assist him at home. No homegoing needs anticipated at this time.
--- NOTE | 2025-03-14 15:07 | CASEMGMT ---
Social Work- SW met with pt and pt sister to complete advanced directives. SW provided education and answered questions regarding document for HCPOA. Pt reports that he would like to be DNR code status. SW provided education that physician can complete that document; SW notified physician. Pt wished to complete HCPOA naming sister Vannessa as primary agent and Marcela as alternate agent. SW provided original to pt, as well as copies for agents. SW placed a copy on the chart and for HIM scanning into electronic chart. Pt reports no other needs at this time. ADINA Mayen
[2025-03-14] MEDS: Morphine 4 MG/ML Syringe IV (18:23)
[2025-03-14] MEDS: 0.9% Normal Saline (1000mL) 1,000 ML 999 ML IV (19:18)
[2025-03-15 05:46] VITALS: BP 146/78; PULSE 92; RESP 16; TEMP 36.6; O2SAT 93
[2025-03-15] MEDS: Acetaminophen 500 MG Tablet 1000 MG PO ×3 (05:55→20:24)
[2025-03-15] MEDS: Dextrose 5%/0.9% NaCl 1,000 ML 110 ML IV ×2 (06:25→16:29)
[2025-03-15 06:37] LABS: Absolute Lymphocyte Count 1.23 X10^3/uL (0.83-4.51); Absolute Neutrophil Count 8.9 X10^3/uL (2.0-7.7); Basophil# 0.01 X10^3/uL; Basophil% 0.1 % (0-1); Eosinophil# 0.34 X10^3/uL; Hematocrit 32.4 % (40-54); Hemoglobin 11.2 g/dL (13.0-16.5); Lymphocyte # 1.23 X10^3/ul (0.83-4.51); Mean Corp Hgb Conc 34.6 g/dL (32-36); Mean Corpuscular Volume 95.6 fL (80-94); Mean Platelet Vol. 10.2 fl (6.2-12.0); Monocyte# 0.66 X10^3/uL; Monocyte% 5.9 % (0-10); NRBC Flagged by Analyzer 0 % (0-5); Neutrophil # 8.94 X10^3/uL (2.7-7.7); Neutrophil % 79.6 % (47-70); Platelet Count 220 K/mm3 (150-450); RBC Distribution Width CV 13.9 % (11.6-14.6); RBC Distribution Width SD 47.9 fl (35.1-43.9); Red Blood Count 3.39 M/mm3 (4.6-6.2); White Blood Count 11.2 K/mm3 (4.4-11.0)
[2025-03-15 06:55] LABS: Anion Gap 6 (5-15); BUN 12 mg/dL (4-19); BUN/Creat Ratio 14.7 RATIO (10-20); Calcium,Total 7.9 mg/dL (7.6-11.0); Carbon Dioxide 24.6 mmol/L (21.0-32.0); Chloride 109 mmol/L (98-108); Creatinine, Serum 0.84 mg/dL (0.70-1.20); EST Glomerular Filtration Rate 95 (>60); Estimated Creatinine Clearance 70.25 ml/min (50-250); Glucose 110 mg/dL (70-99); Potassium 3.9 mmol/L (3.3-5.1); Sodium Level 140 mmol/L (133-145)
--- NOTE | 2025-03-15 08:55 | PCM.PN.SRG ---
Subjective Subjective Patient evaluated resting comfortably in bed. He denies flatus or bowel movement. He denies any nausea, vomiting, fever. He continues to have an NG, which put out 50 mL overnight. He continues to have a rowe catheter in place which put out 525 since midnight. He continues to note right lower quadrant abdominal pain. He has been chewing gum and ambulating well. Objective Data Objective Data Vital Signs: Vital Signs Temp Pulse Resp BP Pulse Ox O2 Del Method O2 Flow Rate 97.9 F 92 16 146/78 H 93 Room Air 2 03/15/25 05:46 03/15/25 05:46 03/15/25 05:46 03/15/25 05:46 03/15/25 05:46 03/15/25 05:46 03/14/25 22:42 Oxygen Flow Rate (L/min) 2 Oxygen Delivery Method Room Air Weight: 130 lb 1.6 oz Body Mass Index (BMI) 20.3 Intake & Output: Intake and Output for Last 24 Hours 03/13/25 03/14/25 03/15/25 23:59 23:59 23:59 Intake Total 4202.25 / 4202.25 4420.0 / 4520.0 1121.67 / 1121.67 Output Total 415 / 965 1535 / 1735 525 / 525 Balance 3787.25 / 3237.25 2885.0 / 2785.0 596.67 / 596.67 Lab / Micro Data 03/15/25 05:55 03/15/25 05:55 Labs: Laboratory Results - last 24 hr 03/14/25 08:12: Sodium 140, Potassium 4.2, Chloride 108, Carbon Dioxide 24.2, Anion Gap 8, BUN 19, Creatinine 1.21 H, Estim Creat Clear Calc 48.77 L, Est GFR (MDRD) Non-Af 65, BUN/Creatinine Ratio 15.6, Glucose 139 H, Calcium 7.9 03/15/25 05:55: WBC 11.2 H, RBC 3.39 L, Hgb 11.2 L, Hct 32.4 L, MCV 95.6 H, MCH 33.0 H, MCHC 34.6, RDW Std Deviation 47.9 H, RDW Coeff of Debo 13.9, Plt Count 220, MPV 10.2, Immature Gran % (Auto) 0.400, Neut % (Auto) 79.6 H, Lymph % (Auto) 11.0 L, [place] % (Auto) 5.9, Eos % (Auto) 3.0, Baso % (Auto) 0.1, Absolute Neuts (auto) 8.9 H, Absolute Lymphs (auto) 1.23, Nucleated RBC % 0, Sodium 140, Potassium 3.9, Chloride 109 H, Carbon Dioxide 24.6, Anion Gap 6, BUN 12, Creatinine 0.84, Estim Creat Clear Calc 70.25, Est GFR (MDRD) Non-Af 95, BUN/Creatinine Ratio 14.7, Glucose 110 H, Calcium 7.9 Physical Exam GI GI Narrative: Abdomen- soft, tenderness in the right lower quadrant. Incisions c/d/i. No erythema or infection noted. Binder intact. Assessment & Plan Assessment/Plan (1) Small bowel obstruction: (2) Abdominal pain: PLAN: Plan I am following this patient in conjunction with Dr. Simms. He will independently evaluate this patient. Labs reviewed Continue with NG tube and Rowe catheter at this time Strict I&O's Okay for sips and ice chips Await bowel function prior to removing NG Continue with ambulation and I.S We will continue to monitor this patient Charges/Coding Visit Charges Inpatient E&M: 70313 Subs Hosp L1 (post-op)
[2025-03-15 08:56] VITALS: BP 135/69; PULSE 72; RESP 16; TEMP 37.3; O2SAT 93
[2025-03-15] MEDS: Morphine 4 MG/ML Syringe IV (11:49)
[2025-03-15] MEDS: 0.9% Saline Lock 10 ML Syringe IV (11:49)
[2025-03-15] MEDS: oxyCODONE 5 MG Tablet PO ×2 (13:56→20:25)
[2025-03-15 14:17] VITALS: BP 168/93; PULSE 92; RESP 18; TEMP 36.3; O2SAT 94
[2025-03-15 20:00] VITALS: O2SAT 88
[2025-03-15 20:08] VITALS: BP 162/75; PULSE 88; RESP 18; TEMP 36.6; O2SAT 96
[2025-03-16] VITALS (7 sets, daily range): BP systolic 145–178; BP diastolic 73–93; PULSE 80–87; RESP 18; TEMP 36.6–37; O2SAT 89–98
[2025-03-16] MEDS: Dextrose 5%/0.9% NaCl 1,000 ML 110 ML IV ×3 (01:35→19:43)
[2025-03-16] MEDS: oxyCODONE 5 MG Tablet PO ×3 (05:48→21:44)
[2025-03-16] MEDS: Acetaminophen 500 MG Tablet 1000 MG PO ×3 (05:48→21:43)
[2025-03-16] MEDS: 0.9% Saline Lock 10 ML Syringe IV ×2 (07:01→21:46)
[2025-03-16] MEDS: hydrALAZINE 20 MG/ML Vial 5 MG IV (07:01)
[2025-03-16 07:12] LABS: Absolute Lymphocyte Count 1.33 X10^3/uL (0.83-4.51); Absolute Neutrophil Count 8.6 X10^3/uL (2.0-7.7); Basophil# 0.02 X10^3/uL; Basophil% 0.2 % (0-1); Eosinophil# 0.28 X10^3/uL; Eosinophils% 2.6 % (0-5); Hematocrit 34.9 % (40-54); Hemoglobin 11.6 g/dL (13.0-16.5); Lymphocyte # 1.33 X10^3/ul (0.83-4.51); Lymphocyte % 12.5 % (19-41); Mean Corp Hgb Conc 33.2 g/dL (32-36); Mean Corpuscular Hgb 31.6 pg (27.0-32.0); Mean Corpuscular Volume 95.1 fL (80-94); Monocyte# 0.44 X10^3/uL; Monocyte% 4.1 % (0-10); NRBC Flagged by Analyzer 0 % (0-5); Neutrophil # 8.58 X10^3/uL (2.7-7.7); Neutrophil % 80.3 % (47-70); Platelet Count 228 K/mm3 (150-450); RBC Distribution Width CV 13.7 % (11.6-14.6); RBC Distribution Width SD 47.3 fl (35.1-43.9); Red Blood Count 3.67 M/mm3 (4.6-6.2); White Blood Count 10.7 K/mm3 (4.4-11.0)
--- NOTE | 2025-03-16 07:20 | PN.SURG_ITS ---
Subjective Subjective Patient says he has passed a few episodes of flatus he denies any nausea or vomiting. Mild abdominal pain Objective Data Objective Data Vital Signs: Vital Signs Temp Pulse Resp BP Pulse Ox O2 Del Method O2 Flow Rate 98.6 F 80 18 170/93 H 96 Room Air 2 03/16/25 05:46 03/16/25 07:01 03/16/25 05:46 03/16/25 07:01 03/16/25 06:57 03/16/25 06:57 03/16/25 05:58 Oxygen Flow Rate (L/min) 2 Oxygen Delivery Method Room Air Weight: 130 lb 1.6 oz Body Mass Index (BMI) 20.3 Intake & Output: Intake and Output for Last 24 Hours 03/14/25 03/15/25 03/16/25 23:59 23:59 23:59 Intake Total 4420.0 / 4520.0 2381.67 / 2381.67 1080 / 1080 Output Total 1535 / 1735 955 / 955 700 / 700 Balance 2885.0 / 2785.0 1426.67 / 1426.67 380 / 380 Lab / Micro Data 03/16/25 06:43 03/15/25 05:55 Labs: Laboratory Results - last 24 hr 03/16/25 06:43: WBC 10.7, RBC 3.67 L, Hgb 11.6 L, Hct 34.9 L, MCV 95.1 H, MCH 31.6, MCHC 33.2, RDW Std Deviation 47.3 H, RDW Coeff of Debo 13.7, Plt Count 228, MPV 10.0, Immature Gran % (Auto) 0.300, Neut % (Auto) 80.3 H, Lymph % (Auto) 12.5 L, [place] % (Auto) 4.1, Eos % (Auto) 2.6, Baso % (Auto) 0.2, Absolute Neuts (auto) 8.6 H, Absolute Lymphs (auto) 1.33, Nucleated RBC % 0 Physical Exam Const oriented x3 and no apparent distress Resp normal respiratory effort GI soft to palpation and non-tender Assessment & Plan Assessment/Plan (1) Small bowel obstruction: PLAN: The patient seems to be doing well. His Mcdonald was removed last night. I will remove his NG this morning but keep him on sips and chips until he is passing more significant bowel function. Philip Geiger MD Pager: [facility] [address] [place] [address], [address] [place] [address] Office:
[2025-03-16 08:00] LABS: Anion Gap 8 (5-15); BUN 8 mg/dL (4-19); BUN/Creat Ratio 9.8 RATIO (10-20); Carbon Dioxide 24.9 mmol/L (21.0-32.0); Chloride 105 mmol/L (98-108); Creatinine, Serum 0.77 mg/dL (0.70-1.20); EST Glomerular Filtration Rate 98 (>60); Estimated Creatinine Clearance 73.77 ml/min (50-250); Glucose 114 mg/dL (70-99); Potassium 3.7 mmol/L (3.3-5.1); Sodium Level 139 mmol/L (133-145)
[2025-03-17] VITALS (9 sets, daily range): BP systolic 140–172; BP diastolic 77–99; PULSE 64–97; RESP 16–18; TEMP 36.4–37.1; O2SAT 91–95
[2025-03-17] MEDS: Dextrose 5%/0.9% NaCl 1,000 ML 110 ML IV (04:36)
[2025-03-17] MEDS: Acetaminophen 500 MG Tablet 1000 MG PO ×3 (06:10→22:18)
--- NOTE | 2025-03-17 07:23 | PCM.PN.SRG ---
Subjective Subjective Patient reports he is passing gas and had a bowel movement. No nausea or vomiting after NG was removed. Minimal abdominal pain. Objective Data Objective Data Vital Signs: Vital Signs Temp Pulse Resp BP Pulse Ox O2 Del Method O2 Flow Rate 97.6 F L 80 16 161/77 H 92 Room Air 2 03/17/25 04:41 03/17/25 06:11 03/17/25 04:41 03/17/25 06:11 03/17/25 04:41 03/17/25 04:42 03/16/25 20:28 Oxygen Flow Rate (L/min) 2 Oxygen Delivery Method Room Air Weight: 130 lb 1.6 oz Body Mass Index (BMI) 20.3 Intake & Output: Intake and Output for Last 24 Hours 03/15/25 03/16/25 03/17/25 23:59 23:59 23:59 Intake Total 2381.67 / 2381.67 3121.83 / 3121.83 977.17 / 977.17 Output Total 955 / 955 1000 / 1000 Balance 1426.67 / 1426.67 2121.83 / 2121.83 977.17 / 977.17 Lab / Micro Data 03/16/25 06:43 03/16/25 06:43 Labs: Laboratory Results - last 24 hr 03/16/25 06:43: Sodium 139, Potassium 3.7, Chloride 105, Carbon Dioxide 24.9, Anion Gap 8, BUN 8, Creatinine 0.77, Estim Creat Clear Calc 73.77, Est GFR (MDRD) Non-Af 98, BUN/Creatinine Ratio 9.8 L, Glucose 114 H, Calcium 8.0 Physical Exam Const oriented x3 and no apparent distress Resp normal respiratory effort GI soft to palpation and non-tender Inspection: abdominal distention Assessment & Plan Assessment/Plan (1) Small bowel obstruction: PLAN: The patient had his NG removed yesterday with no nausea or vomiting. He reports that he is passing gas and had bowel movements. I will advance him to clear liquids and see how he tolerates this and I told him to take it easy. I will decrease his IV fluid rate. Continue ambulation. Hope to advance to regular diet tomorrow and possibly discharge. Philip Geiger MD Pager: [facility] [address] [place] [address], [address] [place] [address] Office:
[2025-03-17] MEDS: oxyCODONE 5 MG Tablet PO ×2 (09:12→13:58)
[2025-03-17] MEDS: hydrALAZINE 20 MG/ML Vial 10 MG IV (14:28)
[2025-03-18 05:42] VITALS: BP 147/77; PULSE 93; RESP 15; TEMP 36.7; O2SAT 94
--- NOTE | 2025-03-18 06:58 | PCM.DC.SUM ---
Providers Date of Admission: 03/12/25 Primary Care Physician: No Primary Care Phys Reason For Visit: SBO Diagnosis Discharge Diagnosis (1) Small bowel obstruction: Status: Acute Code(s): K56.609 - Unspecified intestinal obstruction, unspecified as to partial versus complete obstruction Plan: The patient had his NG removed yesterday with no nausea or vomiting. He reports that he is passing gas and had bowel movements. I will advance him to clear liquids and see how he tolerates this and I told him to take it easy. I will decrease his IV fluid rate. Continue ambulation. Hope to advance to regular diet tomorrow and possibly discharge. Philip Geiger MD Pager: [facility] [address] [place] [address], [address] [place] [address] Office: Medications at Discharge Home Medications oxycodone 5 mg tablet 5 - 10 mg (1 - 2 x 5 mg) PO Q4H PRN PRN Pain Score 4-10 5 days #20 tabs 03/18/25 Hospital Course Operations colectomy Procedures None Summary of Care Provided Hospital Course: Patient presented with small bowel obstruction which was found to be a mass on surgical exploration. This was resected and he had a ileocecectomy as well. He was slowly started on a diet after passing gas and having NG tube in place. Once he was tolerating clears you advance to regular and once he tolerates regular he will be discharged home pathology is still pending. Physical Exam Const oriented x3 and no apparent distress Resp normal respiratory effort GI soft to palpation and non-tender Extremity normal to inspection Weight / BMI Weight Weight: 130 lb 1.6 oz Body Mass Index (BMI) 20.3 ABG / Lab / Microbiology Data 03/16/25 06:43 03/16/25 06:43 D/C Instructions Discharge Diet: Light diet - advance as tolerated Discharge Activity: May Not Drive (For 2 to 3 days or while taking narcotics) and May Shower Lifting Restrictions: 15 pounds for 6 weeks Call your doctor if your incision/area has: Continuous Slow Oozing, Sudden Increased Bleeding, Increased Pain/ Swelling, Increased Redness, Foul Smelling Discharge and Swelling at the incision site Call your doctor if you observe: Fever of 101 or Higher Remove Dressing in: 2 days Cleanse incision/area with: Soap & Water DC O2, CPAP, BIPAP Needs Home O2 Discharge instructions: No Please Follow Up With: Jass Simms MD When: Please call to schedule 1 week follow up appointment. [phone] Meaningful Use Info Meaningful Use Meaningful Use Diagnoses (Choose all that apply): None applicable Ischemic Stroke Statin Dosing Therapy Reference: STATIN DOSE THERAPY REFERENCE: * Patients > 75 years receive moderate or high dose statin therapy. * Patients 75 years or YOUNGER should receive HIGH intensity statin dose unless contraindicated. You will be required to document reason for non-treatment if statin daily dose does not meet guidelines. HIGH DOSE STATIN THERAPY DAILY Atorvastatin > than or = to 40 mg Rosuvastatin > than or = to 20 mg Amlodipine + Atorvastatin > than or = to 2.5/40 mg Ezetimibe + Simvastatin 10/80 mg Simvastatin 80mg Discharge Plan Admission Admit Date/Time: 03/12/25 14:43 Attending Provider: Jass Simms Primary Care Provider: Care Physician,No Primary Discharge Orders/Prescriptions Prescriptions: New oxycodone 5 mg Tablet 5 - 10 mg PO Q4H PRN PRN (Reason: Pain Score 4-10) 5 Days Qty: 20 0RF Referrals / Follow Up: Care Physician,No Primary [Primary Care Provider] - Elizabeth Bonilla PA [Non-Staff] - Disposition Disposition (needs filled in before D/C Order can be placed): Home, Self Care
[2025-03-18 08:30] VITALS: PULSE 70; RESP 18; O2SAT 93
--- NOTE | 2025-03-18 08:52 | NURSING ---
0830 patient ate regular breakfast, did not tolerated. patient with emesis after breakfast. Roseann Seaman RN
[2025-03-18] MEDS: Ondansetron 4 MG/2 ML Vial IV (09:06)
[2025-03-18] MEDS: 0.9% Saline Lock 10 ML Syringe IV (09:06)
[2025-03-18 11:53] VITALS: BP 148/80; PULSE 100; RESP 18; TEMP 37.1; O2SAT 93
[2025-03-18 14:00] VITALS: PULSE 90; RESP 18; O2SAT 93
[2025-03-18 14:20] VITALS: BP 155/80; PULSE 90; RESP 18; TEMP 37.1; O2SAT 93
== END 2025-03-18 15:00 | disposition home or self-care (01) | DRG 330 ==
LOC: ED 15:00 → MS3 15:15
PROVIDERS: Physician Assistant; Admitting Provider Surgery; Emergency Provider Emergency Medicine; Visit Provider Surgery
PROC: 0DTH0ZZ Resection of Cecum, Open Approach (ICD-10-PCS; CPT 49320; principal; 2025-03-13 11:15)
DX: K56.609 Unspecified intestinal obstruction, unspecified as to partial versus complete obstruction (principal); C18.0 Malignant neoplasm of cecum; C78.6 Secondary malignant neoplasm of retroperitoneum and peritoneum; K91.89 Other postprocedural complications and disorders of digestive system; Z66 Do not resuscitate; K44.9 Diaphragmatic hernia without obstruction or gangrene; Z80.8 Family history of malignant neoplasm of other organs or systems; Z87.891 Personal history of nicotine dependence; K56.50 Intestinal adhesions [bands], unspecified as to partial versus complete obstruction; Z92.21 Personal history of antineoplastic chemotherapy; Z90.49 Acquired absence of other specified parts of digestive tract; K56.7 Ileus, unspecified
CPT/HCPCS: 36415; 74018; 74177; 80048; 80053; 81001; 83690; 85025; 88305; 88307; 88342; 94668; 97162; 97166; 99285; Q9967; A4216; J0666; J2405

== ENCOUNTER → 2025-03-13 | Outpatient (CLI) | payer BC, MEDICARE, SELFPAY | END | disposition home or self-care (01) | LOC: ONC 09-05 11:51 | PROVIDERS: PCP Physician Assistant Medical; Referring Provider Surgery; Visit Provider Surgery | DX: C18.9 Malignant neoplasm of colon, unspecified (principal) | CPT/HCPCS: J2405 ==